=== PATIENT | female | born 1945 | race Caucasian/White ===

== ENCOUNTER → 2020-01-30 20:28 | Outpatient (ROUT) | payer OTHER, SELFPAY ==
[2020-01-30 21:04] LABS: Alanine Aminotransferase 21 IU/L (<35); Albumin 4.1 g/dL (3.5-5.0); Albumin Globulin Ratio 1.4 (1.0-2.8); Alkaline Phosphatase 86 U/L (38-126); Aspartate Aminotransferase 35 IU/L (14-36); BUN Creatinine Ratio 12.9 (6-22); Bilirubin Total 0.5 mg/dL (0.2-1.3); Blood Urea Nitrogen 9 mg/dL (7-17); Calcium 9.6 mg/dL (8.4-10.2); Carbon Dioxide 34 mmol/L (22-32); Chloride 102 mmol/L (98-107); Cholesterol 250 mg/dL (140-199); Estimated Glomerular Filt Rate > 60.0 mL/min (>60); Globulin 2.9 g/dL (1.7-4.1); Glucose 107 mg/dL (80-110); HDL Cholesterol 76 mg/dL (40-60); HEMOLYSIS 19 (0-50); LDL Cholesterol Calculated 146 mg/dL (<100); Sodium 139 mmol/L (137-145); Triglycerides 142 mg/dL (35-150)
[2020-01-30 21:07] LABS: Potassium 4.5 mmol/L (3.4-5.1)
== END ==
PROVIDERS: Visit Provider Internal Medicine
DX: I10 Essential (primary) hypertension (principal); E78.5 Hyperlipidemia, unspecified
CPT/HCPCS: 80053; 80061

== ENCOUNTER → 2020-02-22 10:14 | Outpatient (CLI) | payer OTHER, SELFPAY ==
--- NOTE | 2020-02-22 | DI.RAD.S_ITS ---
PROCEDURE: XR DEXA AXIAL SKELETON INDICATIONS: Asymptomatic menopausal state COMPARISON: None. FINDINGS: This blank DEXA report has been sent in error by the PACS system. The correct and complete report will be forthcoming in 1-2 days. Thank you for your patience and understanding. Dictated by: Mami Lockwood MD, PhD on 02/22/2020 at 12:31 Approved by: Mami Lockwood MD, PhD on 02/22/2020 at 12:31
== END ==
PROVIDERS: PCP Internal Medicine; Referring Provider Internal Medicine; Visit Provider Internal Medicine
DX: M85.851 Other specified disorders of bone density and structure, right thigh (principal); Z78.0 Asymptomatic menopausal state
CPT/HCPCS: 77080

== ENCOUNTER → 2020-05-02 08:55 | Outpatient (CLI) | payer MEDICARE, SELFPAY ==
[2020-05-02] MEDS: COVID-19 VACC #1, MRNA(MOD) 100 MCG/0.5 ML VIAL IM (09:05)
== END ==
PROVIDERS: PCP Internal Medicine; Visit Provider Internal Medicine
DX: Z23 Encounter for immunization (principal)
CPT/HCPCS: 0011A; 91301

== ENCOUNTER → 2020-05-30 09:02 | Outpatient (CLI) | payer MEDICARE, SELFPAY ==
[2020-05-30] MEDS: COVID-19 VACC #2, MRNA(MOD) 100 MCG/0.5 ML VIAL IM (09:18)
== END ==
PROVIDERS: PCP Internal Medicine; Visit Provider Internal Medicine
DX: Z23 Encounter for immunization (principal)
CPT/HCPCS: 0012A; 91301

== ENCOUNTER 2023-04-18 15:22 | Inpatient (IN) | payer OTHER, SELFPAY ==
[2023-04-18] VITALS (28 sets, daily range): BP systolic 87–158; BP diastolic 52–73; PULSE 71–90; RESP 6–40; TEMP 36.4; O2SAT 94–100; BMI 19.1
[2023-04-18 15:50] LABS: Add Manual Diff / Slide Review NO; Basophils Absolute Auto 0 /uL (0-100); Basophils Percent Auto 0.4 % (0-2); Eosinophils Absolute Auto 0 /uL (0-450); Eosinophils Percent Auto 0.1 % (2-4); Hematocrit 48.4 % (36-46); Hemoglobin 16.2 g/dL (12.0-16.0); Lymphocytes Absolute Auto 1300 /uL (1100-4500); Lymphocytes Percent Auto 17.9 % (25-40); Mean Corpuscular HGB Conc 33.5 % (30-36); Mean Corpuscular Hemoglobin 29.5 PG (26-34); Mean Corpuscular Volume 88.2 fL (80-100); Monocytes Absolute Auto 600 /uL (0-900); Monocytes Percent Auto 8.6 % (3-14); Neutrophils Absolute Auto 5300 /uL (1500-7000); Platelet Count 417 X10^3/uL (150-400); Red Blood Cell Count 5.48 X10^6/uL (4.0-5.2); White Blood Cell Count 7.3 X10^3/uL (4.5-11.0)
[2023-04-18] MEDS: ONDANSETRON 4 MG/2 ML INJ IV (15:59)
[2023-04-18] MEDS: SODIUM CHLORIDE 0.9% 1,000 ML 1000 ML IV ×2 (15:59→17:46)
[2023-04-18 16:02] LABS: Ethanol (ETOH) < 10 mg/dL
[2023-04-18 16:03] LABS: Alanine Aminotransferase 23 IU/L (<35); Albumin 4.9 g/dL (3.5-5.0); Albumin Globulin Ratio 1.4 (1.0-2.8); Alkaline Phosphatase 119 U/L (38-126); Aspartate Aminotransferase 25 IU/L (14-36); BUN Creatinine Ratio 15.9 (6-22); Bilirubin Total 0.6 mg/dL (0.2-1.3); Blood Urea Nitrogen 14 mg/dL (7-17); Calcium 10.2 mg/dL (8.4-10.2); Chloride 98 mmol/L (98-107); Estimated Glomerular Filt Rate > 60 mL/min (>60); Globulin 3.5 g/dL (1.7-4.1); Glucose 387 mg/dL (80-110); HEMOLYSIS < 15 (0-50); Lipase 128 U/L (23-300); Potassium 3.7 mmol/L (3.4-5.1); Sodium 130 mmol/L (137-145); Total Protein 8.4 g/dL (6.3-8.2)
[2023-04-18 16:14] LABS: Carbon Dioxide 9 mmol/L (22-32)
[2023-04-18 16:42] LABS: HCO3 VBG 8 mmol/L (24-28); PCO2 VBG 24.1 mmHg (45-50); PO2 VBG 30 mmHg (35-45); Total CO2 VBG 9 mmol/L (24-29); pH VBG 7.12 (7.33-7.43)
[2023-04-18 16:43] LABS: Fractionated Inspired Oxygen 21; Oxygen Saturation VBG 41 % (70-75)
[2023-04-18 16:46] LABS: Creatine Kinase 49 U/L (30-135)
[2023-04-18 16:48] LABS: Influenza A - CEPHEID Flu A NEGATIVE (NEGATIVE); Influenza B - CEPHEID Flu B NEGATIVE (NEGATIVE); Respiratory Syncytial Virus Negative (Negative)
[2023-04-18 16:48] LABS: Ketones (Beta-Hydroxybutyrate) 10.14 mmol/L (<0.27)
[2023-04-18 16:53] LABS: COVID-19 CEPHEID 4-PLEX PCR Negative (Negative)
[2023-04-18 17:00] LABS: Troponin I < 0.012 ng/mL (0.01-0.034)
--- NOTE | 2023-04-18 17:01 | ED.GENADULT ---
HPI - General Adult General Chief complaint: Weakness Stated complaint: fatigue, weakness, no appetite, no bm, vomiting,bp Time Seen by Provider: 04/18/23 15:44 Source: patient and family Mode of arrival: Ambulatory Limitations: no limitations History of Present Illness HPI narrative: Patient is a 77-year-old female. History of hypertension although she has not taking any of her medications. No history of diabetes. Does have a significant alcohol history. She states several weeks ago she just generally started to not feel very well. Has had fatigue, weakness and no appetite. She states she did vomit yesterday and today but nothing prior to that. She currently is not having any nausea. She also has not had a bowel movement in the past week. She has tried [id number] laxatives and stool softeners. She denies chest pain, shortness of breath, headache, fevers. She states that when she started to not feel very well she stopped drinking and has not had a drink in a couple weeks although she started to not feel well prior to that. She denied urinary symptoms. No skin rashes. She was able to walk from her house to the car with her family when they came to the emergency department. Related Data Allergies Allergy/AdvReac Type Severity Reaction Status Date / Time No Known Drug Allergies Allergy Verified 04/18/23 15:59 Review of Systems Review of Systems ROS Unobtainable: All systems reviewed & are unremarkable except as noted in HPI and below Patient History Medical History (Updated 04/18/23 @ 18:07 by Jordan Swanson DO) Hypertension Social History Smoking Status: Current every day smoker Smoking Status: Current every day smoker alcohol intake frequency: 3 or more drinks per day Alcohol type: wine Exam Initial Vital Signs Initial Vital Signs: Vital Signs Respiratory Rate 20 04/18/23 15:32 Oxygen Delivery Method Room Air 04/18/23 15:32 Const General: cooperative, comfortable and No ill appearing HENMT Face and sinus: normal facial exam Mouth: No moist mucous membranes (Dry mucous membranes) Resp Effort & Inspection: normal respiratory effort Auscultation: clear to auscultation bilaterally Cardio Rate: regular rate Rhythm: regular rhythm GI Inspection: normal to inspection and non-distended Palpation: soft, No firm, No guarding and No tender Auscultation: normal bowel sounds Skin General: no rashes or lesions noted Neuro General: patient alert, patient awake, patient oriented x3 and moves all extremities Cognition: normal cognition Speech: speech normal Extrem General: capillary refill normal Scores GCS Jose Raul coma scale eye opening: Spontaneous [place] coma scale verbal response: Orientated Jose Raul coma scale motor response: Obey commands [place] coma scale total score: 15 Course Orders Ordered: ED Orders 04/18/23 15:30 Ketones (Beta-Hydroxybutyrate) Stat Lactate (Lactic Acid) Stat Magnesium Stat Phosphorous Stat Troponin & CK Cardiac Panel Stat 04/18/23 15:39 Complete Blood Count AUTO DIFF Stat Comprehensive Metabolic Panel Stat Covid-19 + FLU A/B + RSV - PCR Stat ETOH [Ethanol (ETOH)] Stat Lipase Stat 04/18/23 15:44 EKG-12 Lead Stat 04/18/23 16:15 VBG [Venous Blood Gas] Stat 04/18/23 17:11 Urine Microscopic Stat Acetaminophen (Acetaminophen 325 Mg Tablet) 650 mg PO Q6H PRN PRN Reason: Fever/Mild Pain (1-3) Heparin Sodium (Porcine) (Heparin 5,000 Unit/Ml Vial) 5,000 unit SUBCUT BID TERRANCE POTASSIUM CHLORIDE IN WATER (Potassium Cl 10 Meq/100 Ml Mary) 10 meq in 100 mls @ 100 mls/hr IV Q1H TERRANCE Stop: 04/18/23 19:44 Last Admin: 04/18/23 17:52 Dose: 100 mls/hr Documented By: CANDELARIO INSULIN DRIP PREMIX (Myxredlin Drip Premix) 100 unit in 100 mls @ 7.348 mls/hr IV TITRATE TERRANCE; Protocol Last Admin: 04/18/23 17:52 Dose: 0.15 unit/kg/hr, 7.348 mls/hr Documented By: CANDELARIO Co-signed By: JO Dextrose ([id number]) 100 mls @ 1,200 mls/hr IV PRN PRN PRN Reason: Hypoglycemia Sodium Chloride (Normal Saline 0.45%) 1,000 mls @ 100 mls/hr IV CONT TERRANCE Naloxone HCl (Naloxone 0.4 Mg/Ml Vial) 0.2 mg IV Q2MIN PRN PRN Reason: Opiate Reversal Discontinued Medications Sodium Chloride (Normal Saline 0.9%) 1,000 mls @ 1,000 mls/hr IV BOLUS ONE Stop: 04/18/23 16:45 Last Infusion: 04/18/23 17:20 Dose: Infused Documented By: Admin: 04/18/23 15:59 Dose: 1,000 mls/hr Documented By: CANDELARIO Sodium Chloride (Normal Saline 0.9%) 1,000 mls @ 1,000 mls/hr IV BOLUS ONE Stop: 04/18/23 18:01 Last Admin: 04/18/23 17:46 Dose: 1,000 mls/hr Documented By: CANDELARIO Ondansetron HCl (Ondansetron 4 Mg/2 Ml Inj) 4 mg IV NOW ONE Stop: 04/18/23 15:47 Last Admin: 04/18/23 15:59 Dose: 4 mg Documented By: CANDELARIO Vital Signs Vital signs: Vital Signs - 8 hr 04/18/23 15:32 04/18/23 15:34 04/18/23 15:34 Temperature Pulse Rate 86 Respiratory Rate 20 24 Blood Pressure 155/73 H Pulse Oximetry 94 Oxygen Delivery Method Room Air 04/18/23 15:36 04/18/23 15:39 04/18/23 15:39 Temperature 97.6 F Pulse Rate 87 83 Respiratory Rate 16 17 Blood Pressure 155/73 H 135/63 Pulse Oximetry 94 Oxygen Delivery Method Room Air 04/18/23 15:45 04/18/23 15:45 04/18/23 16:00 Temperature Pulse Rate 81 80 Respiratory Rate 17 21 Blood Pressure 137/62 Pulse Oximetry 99 100 Oxygen Delivery Method Room Air 04/18/23 16:00 04/18/23 16:15 04/18/23 16:15 Temperature Pulse Rate 79 Respiratory Rate 20 Blood Pressure 146/69 H 140/63 Pulse Oximetry 99 Oxygen Delivery Method 04/18/23 16:30 04/18/23 16:30 Temperature Pulse Rate 80 Respiratory Rate 24 Blood Pressure 147/70 H Pulse Oximetry 99 Oxygen Delivery Method Room Air Medical Decision Making Lab Data Lab results reviewed: Yes I reviewed the patient's lab results. 04/18/23 15:39 04/18/23 15:39 Labs: Lab Results 04/18/23 04/18/23 04/18/23 Range/Units 15:30 15:39 16:15 WBC 7.3 (4.5-11.0) X10^3/uL RBC 5.48 H (4.0-5.2) X10^6/uL Hgb 16.2 H (12.0-16.0) g/dL Hct 48.4 H (36-46) % MCV 88.2 (80-100) fL MCH 29.5 (26-34) PG MCHC 33.5 (30-36) % RDW 14.0 (11.6-14.8) % Plt Count 417 H (150-400) X10^3/uL Neut % (Auto) 73.0 (50-75) % Lymph % (Auto) 17.9 L (25-40) % [place] % (Auto) 8.6 (3-14) % Eos % (Auto) 0.1 L (2-4) % Baso % (Auto) 0.4 (0-2) % Neut # (Auto) 5300 (8056-9256) /uL Lymph # (Auto) 1300 (7685-3954) /uL [place] # (Auto) 600 (0-900) /uL Eos # (Auto) 0 (0-450) /uL Baso # (Auto) 0 (0-100) /uL VBG pH 7.12 L* (7.33-7.43) VBG pCO2 24.1 L (45-50) mmHg VBG pO2 30 L (35-45) mmHg VBG HCO3 8 L (24-28) mmol/L VBG Total CO2 9 L (24-29) mmol/L VBG O2 Saturation 41 L (70-75) % VBG Base Excess -21.0 L (0-4) mmol/L FiO2 21 Sodium 130 L (137-145) mmol/L Potassium 3.7 (3.4-5.1) mmol/L Chloride 98 (98-107) mmol/L Carbon Dioxide 9 L* (22-32) mmol/L BUN 14 (7-17) mg/dL Creatinine 0.88 (0.52-1.04) mg/dL Estimated GFR > 60 (>60) mL/min BUN/Creatinine Ratio 15.9 (6-22) Glucose 387 H (80-110) mg/dL Lactate 2.0 (0.7-2.1) mmol/L Calcium 10.2 (8.4-10.2) mg/dL Phosphorus 4.0 (2.8-4.1) mg/dL Magnesium 2.0 (1.6-2.3) mg/dL Total Bilirubin 0.6 (0.2-1.3) mg/dL AST 25 (14-36) IU/L ALT 23 (<35) IU/L Alkaline Phosphatase 119 (38-126) U/L Total Creatine Kinase 49 (30-135) U/L Troponin I < 0.012 (0.01-0.034) ng/mL Total Protein 8.4 H (6.3-8.2) g/dL Albumin 4.9 (3.5-5.0) g/dL Globulin 3.5 (1.7-4.1) g/dL Albumin/Globulin Ratio 1.4 (1.0-2.8) Lipase 128 (23-300) U/L Urine RBC (0-5/HPF) Urine WBC (0-5/HPF) Ur Squamous Epith Cells (0-5/HPF) Ur Renal Epithelial Cell (0-1/HPF) Urine Bacteria (None) Hyaline Casts (None) Ur Culture Indicated? Ethyl Alcohol < 10 ( - 10) mg/dL Ketones 10.14 H (<0.27) mmol/L SARS-CoV-2 (PCR) Negative (Negative) Influenza A (RT-PCR) Flu a negative (NEGATIVE) Influenza B (RT-PCR) Flu b negative (NEGATIVE) RSV (PCR) Negative (Negative) 04/18/23 Range/Units 17:11 WBC (4.5-11.0) X10^3/uL RBC (4.0-5.2) X10^6/uL Hgb (12.0-16.0) g/dL Hct (36-46) % MCV (80-100) fL MCH (26-34) PG MCHC (30-36) % RDW (11.6-14.8) % Plt Count (150-400) X10^3/uL Neut % (Auto) (50-75) % Lymph % (Auto) (25-40) % [place] % (Auto) (3-14) % Eos % (Auto) (2-4) % Baso % (Auto) (0-2) % Neut # (Auto) (4333-7400) /uL Lymph # (Auto) (6461-1694) /uL [place] # (Auto) (0-900) /uL Eos # (Auto) (0-450) /uL Baso # (Auto) (0-100) /uL VBG pH (7.33-7.43) VBG pCO2 (45-50) mmHg VBG pO2 (35-45) mmHg VBG HCO3 (24-28) mmol/L VBG Total CO2 (24-29) mmol/L VBG O2 Saturation (70-75) % VBG Base Excess (0-4) mmol/L FiO2 Sodium (137-145) mmol/L Potassium (3.4-5.1) mmol/L Chloride (98-107) mmol/L Carbon Dioxide (22-32) mmol/L BUN (7-17) mg/dL Creatinine (0.52-1.04) mg/dL Estimated GFR (>60) mL/min BUN/Creatinine Ratio (6-22) Glucose (80-110) mg/dL Lactate (0.7-2.1) mmol/L Calcium (8.4-10.2) mg/dL Phosphorus (2.8-4.1) mg/dL Magnesium (1.6-2.3) mg/dL Total Bilirubin (0.2-1.3) mg/dL AST (14-36) IU/L ALT (<35) IU/L Alkaline Phosphatase (38-126) U/L Total Creatine Kinase (30-135) U/L Troponin I (0.01-0.034) ng/mL Total Protein (6.3-8.2) g/dL Albumin (3.5-5.0) g/dL Globulin (1.7-4.1) g/dL Albumin/Globulin Ratio (1.0-2.8) Lipase (23-300) U/L Urine RBC 0-1/hpf (0-5/HPF) Urine WBC 1-5/hpf (0-5/HPF) Ur Squamous Epith Cells 1-5 /hpf (0-5/HPF) Ur Renal Epithelial Cell 0-1/hpf (0-1/HPF) Urine Bacteria None seen (None) Hyaline Casts 5-10/lpf (None) Ur Culture Indicated? Cult not indicated Ethyl Alcohol ( - 10) mg/dL Ketones (<0.27) mmol/L SARS-CoV-2 (PCR) (Negative) Influenza A (RT-PCR) (NEGATIVE) Influenza B (RT-PCR) (NEGATIVE) RSV (PCR) (Negative) Urine Dip Bedside Urine Glucose 1000 mg/dl Bedside Urine Bilirubin - Negative Bedside Urine Ketone +++ 80 Urine Specific [place] 1.030 Bedside Urine Occult Blood + Bedside Urine pH 5.5 Bedside Urine Protein + 30 Bedside Urine Urobilinogen - Negative Bedside Urine Nitrite - Negative Point of care testing: Urine Dip Bedside Urine Glucose 1000 mg/dl Bedside Urine Bilirubin - Negative Bedside Urine Ketone +++ 80 Urine Specific [place] 1.030 Bedside Urine Occult Blood + Bedside Urine pH 5.5 Bedside Urine Protein + 30 Bedside Urine Urobilinogen - Negative Bedside Urine Nitrite - Negative ECG Data Attestation: I personally reviewed and interpreted this ECG as follows: Interpretation: Sinus rhythm Ventricular rate is 74 Left axis deviation LVH Normal QRS MDM Narrative Medical decision making narrative: Patient has very vague symptoms to include fatigue and weakness that have been going on for a couple weeks. She has not had a bowel movement in the past week. Her abdomen is soft. Nondistended. Good bowel sounds. She is afebrile. No leukocytosis. No specific source of infection. Low suspicion for pneumonia. No skin changes. No urinary symptoms. She has no chest pain. Troponin is negative. Has a nonischemic EKG. She has never been diagnosed with diabetes. Her glucose is elevated. She has an anion gap of 23. Is acidotic with a VBG pH of 7.1. She was clinically dehydrated. Has very dry mouth and tongue. She has not currently nauseous. Patient does meet criteria for DKA. Was given fluids. Potassium is 3.7. Anticipate drop of potassium with starting of insulin so will give potassium with fluids. Patient does require admission to the hospital. Discussed the case with Dr. Bishop hospitalist on-call who will admit. Discussed the need for admission with the patient and family. They expressed understanding and agreement as well. Discharge Plan Departure Patient Disposition: Admitted As Inpatient Clinical Impression: DKA (diabetic ketoacidosis), Dehydration Admit Date/Time: 04/18/23 17:47 Admit Provider: Baudilio Bishop
[2023-04-18 17:45] LABS: Bacteria Urine None Seen; RBC Urine 0-1/HPF (0-5/HPF); Squamous Epithelial Cell Urine 1-5 /HPF (0-5/HPF); WBC Urine 1-5/HPF (0-5/HPF)
[2023-04-18 17:47] LABS: Culture Indicated Urine Cult Not Indicated; Hyaline Casts Urine 5-10/LPF; Renal Epithelial Cells Urine 0-1/HPF (0-1/HPF)
[2023-04-18] MEDS: POTASSIUM CHLORIDE IN WATER 10 MEQ/100 ML PIGGYBACK 100 MEQ IV ×3 (17:52→23:02)
[2023-04-18] MEDS: INSULIN DRIP PREMIX 100 UNIT/100 ML PLAST..BAG 7.348 UNIT IV (17:52)
--- NOTE | 2023-04-18 17:59 | P.HP_ITS ---
History of Present Illness History of Present Illness Date Patient Seen: 04/18/23 Time Patient Seen: 17:59 Date of Onset of Symptoms: 04/13/23 Chief complaint: fatigue, weakness, no appetite, no bm, vomiting,bp Narrative: The patient is a 77-year-old female with a history of hypertension who stopped taking blood pressure medication some time ago as well as a history of chronic alcohol abuse and tobacco use. She has been progressively ill for 3-4 weeks with progressive weakness and anorexia. She stopped all alcohol ingestion about 2 weeks ago except for a half of a beer several days ago. She stopped smoking about 2 weeks ago because of the way she was feeling. Because of progressive weakness she presented to the ED with her family today. Her daughter is a hospice nurse and her son-in-law is a EMT. He did note fruity breath. In the emergency department she was found to have hyperglycemia and a pH of 7.1 with positive ketones. She was clinically very dehydrated. She also had evidence of hemoconcentration with a hemoglobin of 16.2 and hematocrit of 48.4. She was tachypneic and response to her acidosis in her lactic acid was negative. She denies chest pain and had a normal EKG she denies abdominal pain but has been vomiting for 2 days. She has no known history of pancreatitis. She has been constipated and had very concentrated urine. She denies any infectious symptoms other than a mild cough. No fevers or chills. No hematuria or dysuria. [facility] Medical History Hypertension Social History Smoking Status: Current every day smoker Comment: She lives alone in [place]. She does smoke and uses alcohol as outlined in the narrative above. She is full resuscitation, confirmed at time of admission. Meds Home Medications and Allergies Allergies Allergy/AdvReac Type Severity Reaction Status Date / Time No Known Drug Allergies Allergy Verified 04/18/23 15:59 Review of Systems Review of Systems Narrative: All else reviewed and otherwise noncontributory other than as noted in the history and physical. Exam Vital Signs (past 8 hours): - 04/18/23 15:32 04/18/23 15:34 04/18/23 15:34 Temperature Pulse Rate 86 Respiratory Rate 20 24 Blood Pressure 155/73 H Pulse Oximetry 94 Oxygen Delivery Method Room Air 04/18/23 15:36 04/18/23 15:39 04/18/23 15:39 Temperature 97.6 F Pulse Rate 87 83 Respiratory Rate 16 17 Blood Pressure 155/73 H 135/63 Pulse Oximetry 94 Oxygen Delivery Method Room Air 04/18/23 15:45 04/18/23 15:45 04/18/23 16:00 Temperature Pulse Rate 81 80 Respiratory Rate 17 21 Blood Pressure 137/62 Pulse Oximetry 99 100 Oxygen Delivery Method Room Air 04/18/23 16:00 04/18/23 16:15 04/18/23 16:15 Temperature Pulse Rate 79 Respiratory Rate 20 Blood Pressure 146/69 H 140/63 Pulse Oximetry 99 Oxygen Delivery Method 04/18/23 16:30 04/18/23 16:30 Temperature Pulse Rate 80 Respiratory Rate 24 Blood Pressure 147/70 H Pulse Oximetry 99 Oxygen Delivery Method Room Air Oxygen Delivery Method Room Air Narrative Exam Narrative: She appears somewhat lethargic but no acute distress. She has fluent speech. She is alert and oriented. She appears underweight. Normocephalic skull. EOMI. Anicteric sclerae, symmetric pupils. Oropharynx with dry mucosa. No facial droop. Neck supple, midline trachea. Lungs are clear, normal rate and effort. Heart is regular, no murmur. Abdomen is soft, non-tender. No masses are palpated. Extremities are free of edema, good pedal pulses. Skin is free of rash or lesions. Joints are not deformed. She can move arms and legs symmetrically has no facial droop normal speech. Objective ECG Impression: NSR, no acute changes. Labs 04/18/23 15:39 04/18/23 15:39 Labs: Laboratory Results - last 24 hr 04/18/23 04/18/23 04/18/23 15:30 15:39 16:15 WBC 7.3 RBC 5.48 H Hgb 16.2 H Hct 48.4 H MCV 88.2 MCH 29.5 MCHC 33.5 RDW 14.0 Plt Count 417 H Neut % (Auto) 73.0 Lymph % (Auto) 17.9 L [place] % (Auto) 8.6 Eos % (Auto) 0.1 L Baso % (Auto) 0.4 Neut # (Auto) 5300 Lymph # (Auto) 1300 [place] # (Auto) 600 Eos # (Auto) 0 Baso # (Auto) 0 VBG pH 7.12 L* VBG pCO2 24.1 L VBG pO2 30 L VBG HCO3 8 L VBG Total CO2 9 L VBG O2 Saturation 41 L VBG Base Excess -21.0 L FiO2 21 Sodium 130 L Potassium 3.7 Chloride 98 Carbon Dioxide 9 L* BUN 14 Creatinine 0.88 Estimated GFR > 60 BUN/Creatinine Ratio 15.9 Glucose 387 H Lactate 2.0 Calcium 10.2 Phosphorus 4.0 Magnesium 2.0 Total Bilirubin 0.6 AST 25 ALT 23 Alkaline Phosphatase 119 Total Creatine Kinase 49 Troponin I < 0.012 Total Protein 8.4 H Albumin 4.9 Globulin 3.5 Albumin/Globulin Ratio 1.4 Lipase 128 Urine RBC Urine WBC Ur Squamous Epith Cells Ur Renal Epithelial Cell Urine Bacteria Hyaline Casts Ur Culture Indicated? Ethyl Alcohol < 10 Ketones 10.14 H SARS-CoV-2 (PCR) Negative Influenza A (RT-PCR) Flu a negative Influenza B (RT-PCR) Flu b negative RSV (PCR) Negative 04/18/23 17:11 WBC RBC Hgb Hct MCV MCH MCHC RDW Plt Count Neut % (Auto) Lymph % (Auto) [place] % (Auto) Eos % (Auto) Baso % (Auto) Neut # (Auto) Lymph # (Auto) [place] # (Auto) Eos # (Auto) Baso # (Auto) VBG pH VBG pCO2 VBG pO2 VBG HCO3 VBG Total CO2 VBG O2 Saturation VBG Base Excess FiO2 Sodium Potassium Chloride Carbon Dioxide BUN Creatinine Estimated GFR BUN/Creatinine Ratio Glucose Lactate Calcium Phosphorus Magnesium Total Bilirubin AST ALT Alkaline Phosphatase Total Creatine Kinase Troponin I Total Protein Albumin Globulin Albumin/Globulin Ratio Lipase Urine RBC 0-1/hpf Urine WBC 1-5/hpf Ur Squamous Epith Cells 1-5 /hpf Ur Renal Epithelial Cell 0-1/hpf Urine Bacteria None seen Hyaline Casts 5-10/lpf Ur Culture Indicated? Cult not indicated Ethyl Alcohol Ketones SARS-CoV-2 (PCR) Influenza A (RT-PCR) Influenza B (RT-PCR) RSV (PCR) Assessment & Plan Assessment & Plan narrative: 1. New onset DKA, presumably type 2. Present on admission and active. 2. Severe metabolic acidosis secondary to DKA, present on admission and active. 3. Severe volume depletion, present on admission and active. 4. Alcohol abuse with no ingestion of significance over the last 2 weeks, present on admission and not active. 5. Tobacco dependence, present on admission and active. Plan: -we will treat her with IV fluids and an insulin drip with the DKA protocol. The patient will also have potassium replaced as necessary and be monitored with Q 4 hour BMP. -she will be given IV fluids initially D5 1/2 NS per protocol. She was given normal saline x2 L in the emergency department. -we will monitor her until her gap closes and then anticipate transition to a simple subcutaneous insulin regimen including long and short-acting insulin. -her daughter is a hospice nurse and has some concerns about her pancreas. We will order a CT of the abdomen and pelvis to evaluate her for chronic pancreatitis tomorrow after she is fully fluid resuscitated. She is full resuscitation, confirmed today. Her daughter is her durable power of smoking pipe mounter and healthcare proxy. Her daughters also director hospice operations. The patient is critically ill with DKA and severe metabolic acidosis. Approximately 45 minutes of critical care time was spent with the patient and coordinating her care. Time Spent With Patient Time with patient: 30 to 49 minutes with 50% spent counseling/coordinating care Quality MIPS - Admit I confirm the patient?s Advance Care Plan is present, Code status is documented, Surrogate decision maker is in patient?s record [If Yes, STOP here]: Yes
[2023-04-18 18:26] LABS: BUN Creatinine Ratio 20.3 (6-22); Blood Urea Nitrogen 13 mg/dL (7-17); Calcium 8.4 mg/dL (8.4-10.2); Chloride 105 mmol/L (98-107); Estimated Glomerular Filt Rate > 60 mL/min (>60); Glucose 310 mg/dL (80-110); HEMOLYSIS 16 (0-50); Potassium 4.3 mmol/L (3.4-5.1); Sodium 132 mmol/L (137-145)
[2023-04-18 18:29] LABS: Carbon Dioxide 6 mmol/L (22-32)
[2023-04-18 19:00] LABS: Hemoglobin A1C% w Est Avg Glu 10.8 % (4.0-6.0)
[2023-04-18] MEDS: DEXTROSE 5%-0.45% NS 1,000 ML 73.5 ML IV (19:02)
[2023-04-18] MEDS: INSULIN DRIP PREMIX 100 UNIT/100 ML PLAST..BAG IV (19:03)
[2023-04-18] MEDS: SODIUM CHLORIDE 0.45% 1,000 ML 100 ML IV (20:20)
--- NOTE | 2023-04-18 20:22 | P.TELICUCN_ITS ---
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 obtained for tele-kitchen chef care: Yes Patient Location: ICU Provider location (State): Other participants/roles: RN Narrative: 77-year-old female with a history of hypertension, chronic alcohol abuse and tobacco use, stopped alcohol use couple of weeks ago, admitted for progressive weakness and anorexia, found to be in DKA Assessment: DKA HTN Chronic alcohol abuse Tobacco use Plan: IV insulin and fluid per DKA protocol Labs and electroytes replacement per DKA protcol F/U pending CT abd & pelvis SC heparin for DVT ppx Discussed plan with ICU staff CCT 30 min [facility] Medical History Hypertension Social History household members: none Smoking Status: Former smoker alcohol intake: former Current Medications Current Medications Medications: Home Medications multivitamin 1 tab PO DAILY 04/18/23 [History Confirmed 04/18/23] Visit Medications (administered) Generic Name Dose Route Start Last Admin Trade Name Freq PRN Reason Stop Dose Admin INSULIN DRIP PREMIX 100 unit in 100 mls @ 7.348 mls/hr 04/18/23 17:45 04/18/23 19:03 Myxredlin Drip Premix IV 0.1 unit/kg/hr TITRATE TERRANCE 4.9 mls/hr Administration Protocol 0.15 UNIT/KG/HR Sodium Chloride 1,000 mls @ 100 mls/hr 04/18/23 18:00 04/18/23 20:20 Normal Saline 0.45% IV 100 mls/hr CONT TERRANCE Administration Dextrose/Sodium Chloride 1,000 mls @ 73.5 mls/hr 04/18/23 19:01 04/18/23 19:02 Dextrose 5%-0.45% Ns IV 04/19/23 08:37 73.5 mls/hr NOW ONE Administration Exam Vital Signs (past 8 hours): - 04/18/23 15:32 04/18/23 15:34 04/18/23 15:34 Temperature Pulse Rate 86 Respiratory Rate 20 24 Blood Pressure 155/73 H Pulse Oximetry 94 Oxygen Delivery Method Room Air 04/18/23 15:36 04/18/23 15:39 04/18/23 15:39 Temperature 97.6 F Pulse Rate 87 83 Respiratory Rate 16 17 Blood Pressure 155/73 H 135/63 Pulse Oximetry 94 Oxygen Delivery Method Room Air 04/18/23 15:45 04/18/23 15:45 04/18/23 16:00 Temperature Pulse Rate 81 80 Respiratory Rate 17 21 Blood Pressure 137/62 Pulse Oximetry 99 100 Oxygen Delivery Method Room Air 04/18/23 16:00 04/18/23 16:15 04/18/23 16:15 Temperature Pulse Rate 79 Respiratory Rate 20 Blood Pressure 146/69 H 140/63 Pulse Oximetry 99 Oxygen Delivery Method 04/18/23 16:30 04/18/23 16:30 04/18/23 16:45 Temperature Pulse Rate 80 80 Respiratory Rate 24 20 Blood Pressure 147/70 H Pulse Oximetry 99 100 Oxygen Delivery Method Room Air 04/18/23 16:45 04/18/23 17:00 04/18/23 17:00 Temperature Pulse Rate 80 Respiratory Rate 20 Blood Pressure 130/59 L 127/70 Pulse Oximetry 99 Oxygen Delivery Method 04/18/23 17:15 04/18/23 17:15 04/18/23 17:30 Temperature Pulse Rate 84 81 Respiratory Rate 6 L 19 Blood Pressure 127/69 Pulse Oximetry 99 100 Oxygen Delivery Method 04/18/23 17:30 04/18/23 17:45 04/18/23 17:45 Temperature Pulse Rate 79 Respiratory Rate 40 H Blood Pressure 139/63 140/71 Pulse Oximetry 100 Oxygen Delivery Method 04/18/23 18:00 04/18/23 18:01 04/18/23 18:01 Temperature Pulse Rate 81 81 Respiratory Rate 26 H 28 H Blood Pressure 147/64 H Pulse Oximetry 100 99 Oxygen Delivery Method 04/18/23 18:15 04/18/23 18:15 04/18/23 20:13 Temperature Pulse Rate 81 Respiratory Rate 26 H Blood Pressure 136/68 158/67 H Pulse Oximetry 100 Oxygen Delivery Method Room Air Oxygen Delivery Method Room Air Objective Labs 04/18/23 15:39 04/18/23 18:10 Labs: Laboratory Results - last 24 hr 04/18/23 04/18/23 04/18/23 15:30 15:39 16:15 WBC 7.3 RBC 5.48 H Hgb 16.2 H Hct 48.4 H MCV 88.2 MCH 29.5 MCHC 33.5 RDW 14.0 Plt Count 417 H Neut % (Auto) 73.0 Lymph % (Auto) 17.9 L [place] % (Auto) 8.6 Eos % (Auto) 0.1 L Baso % (Auto) 0.4 Neut # (Auto) 5300 Lymph # (Auto) 1300 [place] # (Auto) 600 Eos # (Auto) 0 Baso # (Auto) 0 VBG pH 7.12 L* VBG pCO2 24.1 L VBG pO2 30 L VBG HCO3 8 L VBG Total CO2 9 L VBG O2 Saturation 41 L VBG Base Excess -21.0 L FiO2 21 Sodium 130 L Potassium 3.7 Chloride 98 Carbon Dioxide 9 L* BUN 14 Creatinine 0.88 Estimated GFR > 60 BUN/Creatinine Ratio 15.9 Glucose 387 H Hemoglobin A1c 10.8 H Lactate 2.0 Calcium 10.2 Phosphorus 4.0 Magnesium 2.0 Total Bilirubin 0.6 AST 25 ALT 23 Alkaline Phosphatase 119 Total Creatine Kinase 49 Troponin I < 0.012 Total Protein 8.4 H Albumin 4.9 Globulin 3.5 Albumin/Globulin Ratio 1.4 Lipase 128 Urine RBC Urine WBC Ur Squamous Epith Cells Ur Renal Epithelial Cell Urine Bacteria Hyaline Casts Ur Culture Indicated? Ethyl Alcohol < 10 Ketones 10.14 H SARS-CoV-2 (PCR) Negative Influenza A (RT-PCR) Flu a negative Influenza B (RT-PCR) Flu b negative RSV (PCR) Negative 04/18/23 04/18/23 17:11 18:10 WBC RBC Hgb Hct MCV MCH MCHC RDW Plt Count Neut % (Auto) Lymph % (Auto) [place] % (Auto) Eos % (Auto) Baso % (Auto) Neut # (Auto) Lymph # (Auto) [place] # (Auto) Eos # (Auto) Baso # (Auto) VBG pH VBG pCO2 VBG pO2 VBG HCO3 VBG Total CO2 VBG O2 Saturation VBG Base Excess FiO2 Sodium 132 L Potassium 4.3 Chloride 105 Carbon Dioxide 6 L* BUN 13 Creatinine 0.64 Estimated GFR > 60 BUN/Creatinine Ratio 20.3 Glucose 310 H Hemoglobin A1c Lactate Calcium 8.4 Phosphorus Magnesium Total Bilirubin AST ALT Alkaline Phosphatase Total Creatine Kinase Troponin I Total Protein Albumin Globulin Albumin/Globulin Ratio Lipase Urine RBC 0-1/hpf Urine WBC 1-5/hpf Ur Squamous Epith Cells 1-5 /hpf Ur Renal Epithelial Cell 0-1/hpf Urine Bacteria None seen Hyaline Casts 5-10/lpf Ur Culture Indicated? Cult not indicated Ethyl Alcohol Ketones SARS-CoV-2 (PCR) Influenza A (RT-PCR) Influenza B (RT-PCR) RSV (PCR)
[2023-04-18] MEDS: HEPARIN 5,000 UNIT/ML VIAL 5000 UNIT SUBCUT (20:43)
[2023-04-18 21:13] LABS: MRSA (Nasal) PCR Not Detected (Not Detect)
[2023-04-18 22:26] LABS: BUN Creatinine Ratio 23.5 (6-22); Blood Urea Nitrogen 12 mg/dL (7-17); Calcium 8.9 mg/dL (8.4-10.2); Carbon Dioxide 13 mmol/L (22-32); Chloride 111 mmol/L (98-107); Estimated Glomerular Filt Rate > 60 mL/min (>60); Glucose 177 mg/dL (80-110); HEMOLYSIS 19 (0-50); Potassium 3.1 mmol/L (3.4-5.1); Sodium 131 mmol/L (137-145)
[2023-04-19] VITALS (50 sets, daily range): BP systolic 89–129; BP diastolic 6–76; PULSE 65–81; RESP 9–27; TEMP 35.9–36.9; O2SAT 94–100
[2023-04-19] MEDS: POTASSIUM CHLORIDE IN WATER 10 MEQ/100 ML PIGGYBACK 100 MEQ IV ×9 (00:01→09:11)
--- NOTE | 2023-04-19 00:24 | PM.EICU.INT ---
Teleintensivist Intervention Date/Time Was camera activated?: No Issue(s) Addressed Issue(s): Abnormal labs and Glycemia Other:: patient remains in acidosis continue DKA protocol would switch to long acting once acidosis resolves, will check am labs Intervention(s) Plan discussed with: Nurse
[2023-04-19 00:31] LABS: PCO2 VBG 28.5 mmHg (45-50); pH VBG 7.24 (7.33-7.43)
[2023-04-19 00:32] LABS: Fractionated Inspired Oxygen 21; HCO3 VBG 12 mmol/L (24-28); Oxygen Saturation VBG 94 % (70-75); PO2 VBG 81 mmHg (35-45); Total CO2 VBG 13 mmol/L (24-29)
[2023-04-19] MEDS: DEXTROSE 10 % IN WATER 1,000 ML 49 ML IV (01:10)
[2023-04-19 03:03] LABS: Blood Urea Nitrogen 12 mg/dL (7-17); Carbon Dioxide 15 mmol/L (22-32); Chloride 109 mmol/L (98-107); Estimated Glomerular Filt Rate > 60 mL/min (>60); Glucose 149 mg/dL (80-110); HEMOLYSIS < 15 (0-50); Potassium 3.9 mmol/L (3.4-5.1); Sodium 128 mmol/L (137-145)
[2023-04-19] MEDS: SODIUM CHLORIDE 0.9% 1,000 ML 100 ML IV (03:42)
[2023-04-19 06:18] LABS: BUN Creatinine Ratio 21.6 (6-22); Blood Urea Nitrogen 11 mg/dL (7-17); Carbon Dioxide 16 mmol/L (22-32); Chloride 108 mmol/L (98-107); Estimated Glomerular Filt Rate > 60 mL/min (>60); Glucose 148 mg/dL (80-110); HEMOLYSIS < 15 (0-50); Potassium 4.2 mmol/L (3.4-5.1); Sodium 126 mmol/L (137-145)
[2023-04-19] MEDS: HEPARIN 5,000 UNIT/ML VIAL 5000 UNIT SUBCUT ×2 (08:28→20:23)
[2023-04-19] MEDS: INSULIN LISPRO 100 UNIT/ML 3ML VIAL SUBCUT ×4 (08:28→20:23)
--- NOTE | 2023-04-19 09:35 | P.TELICUPN_ITS ---
Subjective Subjective IF CAMERA ACTIVATED, patient seen via real-time interactive audiovisual communication: Camera activated Consent obtained for tele-spooler operator care: Yes Patient Location: ICU Provider location (State): Other participants/roles: RN Interval history: 77-year-old female with a history of hypertension, chronic alcohol abuse and tobacco use, stopped alcohol use couple of weeks ago, admitted for progressive weakness and anorexia, found to be in DKA Overnight/ this am: Feel better this morning, denies any complain, full liquid initiated / tolerated. 1.5 hrs ago BMP noted to have resolved AG with sodium of 126, pt was on NS and D10 drips with insulin drip, oredred to DC all drips and start moderate scale ISS , last BS 140, pending BMP in 30 min Assessment: Acute hyponatremia DKA HTN Chronic alcohol abuse Tobacco use Plan: Pending BMP, pseudo hyponatremia initatially but continued despite improvement of glucose level, BMP pending after stopping fluids Continue ISS for now , will decide for long acting insulin initiation as pt was on D10 with insulin F/U pending CT abd & pelvis SC heparin for DVT ppx Discussed plan with ICU staff CCT 30 min Current Medications Current Medications Medications: Home Medications multivitamin 1 tab PO DAILY 04/18/23 [History Confirmed 04/18/23] Visit Medications (administered) Generic Name Dose Route Start Last Admin Trade Name Freq PRN Reason Stop Dose Admin Heparin Sodium (Porcine) 5,000 unit 04/18/23 21:00 04/19/23 08:28 Heparin 5,000 Unit/Ml Vial SUBCUT 5,000 unit BID TERRANCE Administration Sodium Chloride 1,000 mls @ 100 mls/hr 04/18/23 18:00 04/19/23 03:49 Normal Saline 0.45% IV 0 mls/hr CONT TERRANCE Infusion Insulin Human Lispro 0 unit 04/19/23 08:00 04/19/23 08:28 Insulin Lispro 100 Unit/Ml 3ml Vial SUBCUT 1 unit ACHS TERRANCE Administration Protocol Objective Labs 04/18/23 15:39 04/19/23 06:02 Labs: Laboratory Results - last 24 hr 04/18/23 04/18/23 04/18/23 15:30 15:39 16:15 WBC 7.3 RBC 5.48 H Hgb 16.2 H Hct 48.4 H MCV 88.2 MCH 29.5 MCHC 33.5 RDW 14.0 Plt Count 417 H Neut % (Auto) 73.0 Lymph % (Auto) 17.9 L [place] % (Auto) 8.6 Eos % (Auto) 0.1 L Baso % (Auto) 0.4 Neut # (Auto) 5300 Lymph # (Auto) 1300 [place] # (Auto) 600 Eos # (Auto) 0 Baso # (Auto) 0 VBG pH 7.12 L* VBG pCO2 24.1 L VBG pO2 30 L VBG HCO3 8 L VBG Total CO2 9 L VBG O2 Saturation 41 L VBG Base Excess -21.0 L FiO2 21 Sodium 130 L Potassium 3.7 Chloride 98 Carbon Dioxide 9 L* BUN 14 Creatinine 0.88 Estimated GFR > 60 BUN/Creatinine Ratio 15.9 Glucose 387 H Hemoglobin A1c 10.8 H Lactate 2.0 Calcium 10.2 Phosphorus 4.0 Magnesium 2.0 Total Bilirubin 0.6 AST 25 ALT 23 Alkaline Phosphatase 119 Total Creatine Kinase 49 Troponin I < 0.012 Total Protein 8.4 H Albumin 4.9 Globulin 3.5 Albumin/Globulin Ratio 1.4 Lipase 128 Urine RBC Urine WBC Ur Squamous Epith Cells Ur Renal Epithelial Cell Urine Bacteria Hyaline Casts Ur Culture Indicated? Nasal Screen MRSA (PCR) Ethyl Alcohol < 10 Ketones 10.14 H SARS-CoV-2 (PCR) Negative Influenza A (RT-PCR) Flu a negative Influenza B (RT-PCR) Flu b negative RSV (PCR) Negative 04/18/23 04/18/23 04/18/23 17:11 18:10 18:52 WBC RBC Hgb Hct MCV MCH MCHC RDW Plt Count Neut % (Auto) Lymph % (Auto) [place] % (Auto) Eos % (Auto) Baso % (Auto) Neut # (Auto) Lymph # (Auto) [place] # (Auto) Eos # (Auto) Baso # (Auto) VBG pH VBG pCO2 VBG pO2 VBG HCO3 VBG Total CO2 VBG O2 Saturation VBG Base Excess FiO2 Sodium 132 L Potassium 4.3 Chloride 105 Carbon Dioxide 6 L* BUN 13 Creatinine 0.64 Estimated GFR > 60 BUN/Creatinine Ratio 20.3 Glucose 310 H Hemoglobin A1c Lactate Calcium 8.4 Phosphorus Magnesium Total Bilirubin AST ALT Alkaline Phosphatase Total Creatine Kinase Troponin I Total Protein Albumin Globulin Albumin/Globulin Ratio Lipase Urine RBC 0-1/hpf Urine WBC 1-5/hpf Ur Squamous Epith Cells 1-5 /hpf Ur Renal Epithelial Cell 0-1/hpf Urine Bacteria None seen Hyaline Casts 5-10/lpf Ur Culture Indicated? Cult not indicated Nasal Screen MRSA (PCR) Not detected Ethyl Alcohol Ketones SARS-CoV-2 (PCR) Influenza A (RT-PCR) Influenza B (RT-PCR) RSV (PCR) 04/18/23 04/18/23 04/19/23 22:07 23:16 02:24 WBC RBC Hgb Hct MCV MCH MCHC RDW Plt Count Neut % (Auto) Lymph % (Auto) [place] % (Auto) Eos % (Auto) Baso % (Auto) Neut # (Auto) Lymph # (Auto) [place] # (Auto) Eos # (Auto) Baso # (Auto) VBG pH 7.24 L VBG pCO2 28.5 L VBG pO2 81 H VBG HCO3 12 L VBG Total CO2 13 L VBG O2 Saturation 94 H VBG Base Excess -15.0 L FiO2 21 Sodium 131 L 128 L Potassium 3.1 L D 3.9 Chloride 111 H 109 H Carbon Dioxide 13 L 15 L BUN 12 12 Creatinine 0.51 L 0.50 L Estimated GFR > 60 > 60 BUN/Creatinine Ratio 23.5 H 24.0 H Glucose 177 H D 149 H Hemoglobin A1c Lactate Calcium 8.9 9.0 Phosphorus Magnesium Total Bilirubin AST ALT Alkaline Phosphatase Total Creatine Kinase Troponin I Total Protein Albumin Globulin Albumin/Globulin Ratio Lipase Urine RBC Urine WBC Ur Squamous Epith Cells Ur Renal Epithelial Cell Urine Bacteria Hyaline Casts Ur Culture Indicated? Nasal Screen MRSA (PCR) Ethyl Alcohol Ketones SARS-CoV-2 (PCR) Influenza A (RT-PCR) Influenza B (RT-PCR) RSV (PCR) 04/19/23 06:02 WBC RBC Hgb Hct MCV MCH MCHC RDW Plt Count Neut % (Auto) Lymph % (Auto) [place] % (Auto) Eos % (Auto) Baso % (Auto) Neut # (Auto) Lymph # (Auto) [place] # (Auto) Eos # (Auto) Baso # (Auto) VBG pH VBG pCO2 VBG pO2 VBG HCO3 VBG Total CO2 VBG O2 Saturation VBG Base Excess FiO2 Sodium 126 L Potassium 4.2 Chloride 108 H Carbon Dioxide 16 L BUN 11 Creatinine 0.51 L Estimated GFR > 60 BUN/Creatinine Ratio 21.6 Glucose 148 H Hemoglobin A1c Lactate Calcium 9.0 Phosphorus Magnesium Total Bilirubin AST ALT Alkaline Phosphatase Total Creatine Kinase Troponin I Total Protein Albumin Globulin Albumin/Globulin Ratio Lipase Urine RBC Urine WBC Ur Squamous Epith Cells Ur Renal Epithelial Cell Urine Bacteria Hyaline Casts Ur Culture Indicated? Nasal Screen MRSA (PCR) Ethyl Alcohol Ketones SARS-CoV-2 (PCR) Influenza A (RT-PCR) Influenza B (RT-PCR) RSV (PCR) Exam Vital Signs (past 8 hours): - 04/19/23 02:00 04/19/23 02:00 04/19/23 02:30 Temperature Pulse Rate 75 73 Respiratory Rate 14 26 H Blood Pressure 89/52 L Pulse Oximetry 96 99 Oxygen Delivery Method 04/19/23 02:55 04/19/23 03:00 04/19/23 03:00 Temperature 96.7 F L Pulse Rate 67 Respiratory Rate 14 Blood Pressure 101/55 L Pulse Oximetry 99 Oxygen Delivery Method 04/19/23 03:30 04/19/23 04:00 04/19/23 04:00 Temperature Pulse Rate 66 Respiratory Rate 13 Blood Pressure 110/56 L Pulse Oximetry 99 Oxygen Delivery Method Room Air 04/19/23 04:00 04/19/23 04:30 04/19/23 05:00 Temperature Pulse Rate 67 71 66 Respiratory Rate 15 13 17 Blood Pressure Pulse Oximetry 98 99 99 Oxygen Delivery Method 04/19/23 05:00 04/19/23 05:30 04/19/23 06:00 Temperature Pulse Rate 66 Respiratory Rate 14 Blood Pressure 102/56 L 98/56 L Pulse Oximetry 99 Oxygen Delivery Method 04/19/23 06:00 04/19/23 06:30 04/19/23 07:00 Temperature Pulse Rate 69 66 65 Respiratory Rate 17 12 9 L Blood Pressure Pulse Oximetry 99 99 99 Oxygen Delivery Method 04/19/23 07:00 04/19/23 07:30 04/19/23 08:00 Temperature Pulse Rate 68 66 Respiratory Rate 15 14 Blood Pressure 129/64 Pulse Oximetry 99 98 Oxygen Delivery Method 04/19/23 08:00 04/19/23 08:00 04/19/23 08:30 Temperature 97.6 F Pulse Rate 78 Respiratory Rate 17 Blood Pressure 109/59 L Pulse Oximetry Oxygen Delivery Method 04/19/23 09:00 04/19/23 09:00 Temperature Pulse Rate 74 Respiratory Rate 24 Blood Pressure 106/59 L Pulse Oximetry 98 Oxygen Delivery Method Oxygen Delivery Method Room Air Quality TeleICU VTE Deep Vein Thrombosis/Pulmonary Embolism Present on Admission: No
[2023-04-19 10:27] LABS: Blood Urea Nitrogen 9 mg/dL (7-17); Calcium 9.1 mg/dL (8.4-10.2); Carbon Dioxide 17 mmol/L (22-32); Chloride 107 mmol/L (98-107); Estimated Glomerular Filt Rate > 60 mL/min (>60); Glucose 160 mg/dL (80-110); HEMOLYSIS < 15 (0-50); Potassium 4.2 mmol/L (3.4-5.1); Sodium 126 mmol/L (137-145)
[2023-04-19] MEDS: INSULIN GLARGINE 100 UNIT/ML 3ML PEN SUBCUT (11:26)
[2023-04-19] MEDS: SODIUM CHLORIDE 3 % 150 ML 30 ML IV (11:26)
[2023-04-19 12:19] LABS: Sodium Urine Random 48 mmol/L (30-90)
--- NOTE | 2023-04-19 13:20 | DI.RAD.S_ITS ---
PROCEDURE: XR CHEST 1V INDICATIONS: fever TECHNIQUE: One view of the chest was acquired. COMPARISON: None. FINDINGS: Surgical changes and devices: None. Lungs and pleura: Lungs are clear. No pleural effusions or pneumothorax. Mediastinum: Mediastinal contours appear normal. Heart size is normal. Bones and chest wall: S shaped thoracolumbar spine scoliosis. No suspicious bony lesions. Overlying soft tissues appear unremarkable. IMPRESSION: No acute cardiopulmonary abnormality is seen. Dictated by: Mami Lockwood MD, PhD on 04/19/2023 at 13:44 Approved by: Mami Lockwood MD, PhD on 04/19/2023 at 13:45
--- NOTE | 2023-04-19 13:21 | P.PN_ITS ---
Subjective Subjective Interval history: 77 F with no PMH admitted with DKA. Overnight provider discontinued insulin infusion this morning, no long acting insulin ordered. Based on previous rate added 5 U this AM, sliding scale added. Will continue to follow BMP for possible recurrence of DKA. Fever this afternooon, ordered for repeat CBC, CXR and blood cultures. UA negative. Exam Vital Signs (past 8 hours): - 04/19/23 05:30 04/19/23 06:00 04/19/23 06:00 Temperature Pulse Rate 66 69 Respiratory Rate 14 17 Blood Pressure 98/56 L Pulse Oximetry 99 99 04/19/23 06:30 04/19/23 07:00 04/19/23 07:00 Temperature Pulse Rate 66 65 Respiratory Rate 12 9 L Blood Pressure 129/64 Pulse Oximetry 99 99 04/19/23 07:30 04/19/23 08:00 04/19/23 08:00 Temperature Pulse Rate 68 66 Respiratory Rate 15 14 Blood Pressure 109/59 L Pulse Oximetry 99 98 04/19/23 08:00 04/19/23 08:30 04/19/23 09:00 Temperature 97.6 F Pulse Rate 78 74 Respiratory Rate 17 24 Blood Pressure Pulse Oximetry 98 04/19/23 09:00 04/19/23 09:30 04/19/23 10:00 Temperature Pulse Rate 77 72 Respiratory Rate 21 18 Blood Pressure 106/59 L Pulse Oximetry 99 99 04/19/23 10:00 04/19/23 11:00 04/19/23 11:00 Temperature Pulse Rate 74 Respiratory Rate 16 Blood Pressure 110/61 107/68 Pulse Oximetry 99 04/19/23 12:00 04/19/23 12:00 04/19/23 12:01 Temperature 97.8 F Pulse Rate 72 69 Respiratory Rate 21 18 Blood Pressure Pulse Oximetry 100 100 04/19/23 12:01 04/19/23 12:11 04/19/23 12:11 Temperature Pulse Rate 72 Respiratory Rate 21 Blood Pressure 110/6 L 124/62 Pulse Oximetry 99 04/19/23 12:30 04/19/23 12:46 04/19/23 13:00 Temperature 101.8 F H Pulse Rate 79 Respiratory Rate 22 Blood Pressure 112/69 Pulse Oximetry 04/19/23 13:00 Temperature Pulse Rate 81 Respiratory Rate 27 H Blood Pressure Pulse Oximetry Oxygen Delivery Method Room Air Narrative Exam Narrative: She appears somewhat lethargic but no acute distress. She has fluent speech. She is alert and oriented. She appears underweight. Normocephalic skull. EOMI. Anicteric sclerae, symmetric pupils. Oropharynx with dry mucosa. No facial droop. Neck supple, midline trachea. Lungs are clear, normal rate and effort. Heart is regular, no murmur. Abdomen is soft, non-tender. No masses are palpated. Extremities are free of edema, good pedal pulses. Skin is free of rash or lesions. Joints are not deformed. She can move arms and legs symmetrically has no facial droop normal speech. Objective Labs 04/18/23 15:39 04/19/23 10:00 Labs: Laboratory Results - last 24 hr 04/18/23 04/18/23 04/18/23 15:30 15:39 16:15 WBC 7.3 RBC 5.48 H Hgb 16.2 H Hct 48.4 H MCV 88.2 MCH 29.5 MCHC 33.5 RDW 14.0 Plt Count 417 H Neut % (Auto) 73.0 Lymph % (Auto) 17.9 L [place] % (Auto) 8.6 Eos % (Auto) 0.1 L Baso % (Auto) 0.4 Neut # (Auto) 5300 Lymph # (Auto) 1300 [place] # (Auto) 600 Eos # (Auto) 0 Baso # (Auto) 0 VBG pH 7.12 L* VBG pCO2 24.1 L VBG pO2 30 L VBG HCO3 8 L VBG Total CO2 9 L VBG O2 Saturation 41 L VBG Base Excess -21.0 L FiO2 21 Sodium 130 L Potassium 3.7 Chloride 98 Carbon Dioxide 9 L* BUN 14 Creatinine 0.88 Estimated GFR > 60 BUN/Creatinine Ratio 15.9 Glucose 387 H Hemoglobin A1c 10.8 H Lactate 2.0 Calcium 10.2 Phosphorus 4.0 Magnesium 2.0 Total Bilirubin 0.6 AST 25 ALT 23 Alkaline Phosphatase 119 Total Creatine Kinase 49 Troponin I < 0.012 Total Protein 8.4 H Albumin 4.9 Globulin 3.5 Albumin/Globulin Ratio 1.4 Lipase 128 Urine RBC Urine WBC Ur Squamous Epith Cells Ur Renal Epithelial Cell Urine Bacteria Hyaline Casts Ur Culture Indicated? Ur Random Sodium Nasal Screen MRSA (PCR) Ethyl Alcohol < 10 Ketones 10.14 H SARS-CoV-2 (PCR) Negative Influenza A (RT-PCR) Flu a negative Influenza B (RT-PCR) Flu b negative RSV (PCR) Negative 04/18/23 04/18/23 04/18/23 17:11 18:10 18:52 WBC RBC Hgb Hct MCV MCH MCHC RDW Plt Count Neut % (Auto) Lymph % (Auto) [place] % (Auto) Eos % (Auto) Baso % (Auto) Neut # (Auto) Lymph # (Auto) [place] # (Auto) Eos # (Auto) Baso # (Auto) VBG pH VBG pCO2 VBG pO2 VBG HCO3 VBG Total CO2 VBG O2 Saturation VBG Base Excess FiO2 Sodium 132 L Potassium 4.3 Chloride 105 Carbon Dioxide 6 L* BUN 13 Creatinine 0.64 Estimated GFR > 60 BUN/Creatinine Ratio 20.3 Glucose 310 H Hemoglobin A1c Lactate Calcium 8.4 Phosphorus Magnesium Total Bilirubin AST ALT Alkaline Phosphatase Total Creatine Kinase Troponin I Total Protein Albumin Globulin Albumin/Globulin Ratio Lipase Urine RBC 0-1/hpf Urine WBC 1-5/hpf Ur Squamous Epith Cells 1-5 /hpf Ur Renal Epithelial Cell 0-1/hpf Urine Bacteria None seen Hyaline Casts 5-10/lpf Ur Culture Indicated? Cult not indicated Ur Random Sodium Nasal Screen MRSA (PCR) Not detected Ethyl Alcohol Ketones SARS-CoV-2 (PCR) Influenza A (RT-PCR) Influenza B (RT-PCR) RSV (PCR) 04/18/23 04/18/23 04/19/23 22:07 23:16 02:24 WBC RBC Hgb Hct MCV MCH MCHC RDW Plt Count Neut % (Auto) Lymph % (Auto) [place] % (Auto) Eos % (Auto) Baso % (Auto) Neut # (Auto) Lymph # (Auto) [place] # (Auto) Eos # (Auto) Baso # (Auto) VBG pH 7.24 L VBG pCO2 28.5 L VBG pO2 81 H VBG HCO3 12 L VBG Total CO2 13 L VBG O2 Saturation 94 H VBG Base Excess -15.0 L FiO2 21 Sodium 131 L 128 L Potassium 3.1 L D 3.9 Chloride 111 H 109 H Carbon Dioxide 13 L 15 L BUN 12 12 Creatinine 0.51 L 0.50 L Estimated GFR > 60 > 60 BUN/Creatinine Ratio 23.5 H 24.0 H Glucose 177 H D 149 H Hemoglobin A1c Lactate Calcium 8.9 9.0 Phosphorus Magnesium Total Bilirubin AST ALT Alkaline Phosphatase Total Creatine Kinase Troponin I Total Protein Albumin Globulin Albumin/Globulin Ratio Lipase Urine RBC Urine WBC Ur Squamous Epith Cells Ur Renal Epithelial Cell Urine Bacteria Hyaline Casts Ur Culture Indicated? Ur Random Sodium Nasal Screen MRSA (PCR) Ethyl Alcohol Ketones SARS-CoV-2 (PCR) Influenza A (RT-PCR) Influenza B (RT-PCR) RSV (PCR) 04/19/23 04/19/23 04/19/23 06:02 10:00 11:33 WBC RBC Hgb Hct MCV MCH MCHC RDW Plt Count Neut % (Auto) Lymph % (Auto) [place] % (Auto) Eos % (Auto) Baso % (Auto) Neut # (Auto) Lymph # (Auto) [place] # (Auto) Eos # (Auto) Baso # (Auto) VBG pH VBG pCO2 VBG pO2 VBG HCO3 VBG Total CO2 VBG O2 Saturation VBG Base Excess FiO2 Sodium 126 L 126 L Potassium 4.2 4.2 Chloride 108 H 107 Carbon Dioxide 16 L 17 L BUN 11 9 Creatinine 0.51 L 0.53 Estimated GFR > 60 > 60 BUN/Creatinine Ratio 21.6 17.0 Glucose 148 H 160 H Hemoglobin A1c Lactate Calcium 9.0 9.1 Phosphorus Magnesium Total Bilirubin AST ALT Alkaline Phosphatase Total Creatine Kinase Troponin I Total Protein Albumin Globulin Albumin/Globulin Ratio Lipase Urine RBC Urine WBC Ur Squamous Epith Cells Ur Renal Epithelial Cell Urine Bacteria Hyaline Casts Ur Culture Indicated? Ur Random Sodium 48 Nasal Screen MRSA (PCR) Ethyl Alcohol Ketones SARS-CoV-2 (PCR) Influenza A (RT-PCR) Influenza B (RT-PCR) RSV (PCR) [facility] Medical History Hypertension Social History household members: none Smoking Status: Former smoker alcohol intake: former Assessment & Plan Assessment & Plan narrative: 1. New onset DKA, presumably type 2. Present on admission and active. 2. Severe metabolic acidosis secondary to DKA, present on admission and active. 3. Severe volume depletion, present on admission and active. 4. Alcohol abuse with no ingestion of significance over the last 2 weeks, present on admission and not active. 5. Tobacco dependence, present on admission and active. 6. Fever, not present on admission Plan: -Insulin infusion discontinued early this morning with resolution of DKA, still with NAGMA on labs. Started 5 U lantus and sliding scale, will need continued dosing adjustments. Monitor for recurrence with BMPs today. -her daughter is a hospice nurse and has some concerns about her pancreas. Given her age of presentation differential includes pancreatic mass, though bili is normal and normal LFTs. Also possible chronic pancreatitis leading to diabetes given EtOH history. Still autoimmune process in the differential as well. Also undiagnosed / treated type 2 diabetes a possibility with progression. Ordered [id number] Ab for tomorrow to help see if autoimmune process contributing. -Developed fever to 101.8 on HD#1, UA negative yesterday, CXR and blood cultures ordered today. After blood cultures give antibiotics depending on possible source. If CXR is unremarkable, consider abdominal CT to see if any possible abdominal source. She is full resuscitation, confirmed today. Her daughter is her durable power of research attorney and healthcare proxy. Her daughters also shellfish sorter. Approximately 30 minutes of critical care time was spent with the patient and coordinating her care. If repeat labs with no recurrence of DKA can be changed to floor care. Time Spent With Patient Time with patient: 30 to 49 minutes with 50% spent counseling/coordinating care Quality VTE Deep Vein Thrombosis/Pulmonary Embolism Present on Admission: No
[2023-04-19 13:43] LABS: Add Manual Diff / Slide Review NO; Basophils Absolute Auto 0 /uL (0-100); Basophils Percent Auto 0.4 % (0-2); Eosinophils Absolute Auto 100 /uL (0-450); Eosinophils Percent Auto 1.3 % (2-4); Hematocrit 36.4 % (36-46); Hemoglobin 12.6 g/dL (12.0-16.0); Lymphocytes Absolute Auto 1700 /uL (1100-4500); Lymphocytes Percent Auto 26.6 % (25-40); Mean Corpuscular HGB Conc 34.7 % (30-36); Mean Corpuscular Hemoglobin 29.8 PG (26-34); Mean Corpuscular Volume 85.8 fL (80-100); Monocytes Absolute Auto 700 /uL (0-900); Monocytes Percent Auto 11.1 % (3-14); Neutrophils Absolute Auto 3800 /uL (1500-7000); Neutrophils Percent Auto 60.6 % (50-75); Platelet Count 307 X10^3/uL (150-400); Red Blood Cell Count 4.24 X10^6/uL (4.0-5.2); Red Cell Distribution Width 13.6 % (11.6-14.8); White Blood Cell Count 6.3 X10^3/uL (4.5-11.0)
[2023-04-19 13:53] LABS: Sodium 127 mmol/L (137-145)
[2023-04-19 14:11] LABS: BUN Creatinine Ratio 15.7 (6-22); Blood Urea Nitrogen 8 mg/dL (7-17); Calcium 9.2 mg/dL (8.4-10.2); Carbon Dioxide 17 mmol/L (22-32); Chloride 105 mmol/L (98-107); Estimated Glomerular Filt Rate > 60 mL/min (>60); Glucose 185 mg/dL (80-110); HEMOLYSIS < 15 (0-50); Potassium 3.8 mmol/L (3.4-5.1); Sodium 127 mmol/L (137-145)
--- NOTE | 2023-04-19 14:17 | PM.EICU.INT ---
Teleintensivist Intervention Date/Time Was camera activated?: Yes Date Patient Seen: 04/19/23 Issue(s) Addressed Issue(s): Abnormal labs Other:: acute hyponatremia, recommended to check serum and urine osm, urine sodium, start 3% saline at 30 ml/ hr, BMP q3h, switch to salt tab 1 gm TID after sodium goal of 130 achieved,
--- NOTE | 2023-04-19 14:30 | CM.DANOTE ---
Initial DCP Assessment Visit Note Reviewed EMR and team rounds or pt's medical status and initial anticipated d/c needs. Met with pt at bedside to introduce self and role, pt found to be alert, oriented, able to engage in visit. Pt resides independently in her own apartment at baseline, her dtr is primary support and DPOA. Payor: Medicare PCP: Thompson Jalloh Pt is a 77 year-old F with a hx of hypertension, smoking, and alcohol use disorder with no prior hx of diabetes presented tot he ED on 04/18/23 wt complaints of worsening fatigue, weakness, poor appetite which started a few weeks ago. She also shared that she has not had a BM in about a week, and started vomiting over the last few days. Pt was found to be hyperglycemic and clinically dehydrated after ED evaluation, was tachyneic, and showed metabolic acidosis. ED dx was for DKA, new onset diabetes. Pt was started on IV insulin and admitted to the floor for further evaluation and treatment. Plan for d/c disposition is home with family assistance at this time. DCP will continue to follow and assist with evolving plan of care needs. Discharge Planning/Care Management CM Discharge Assessment Start: 04/19/23 14:21 Freq: Status: Active Protocol: Document 04/19/23 14:22 DPL (Rec: 04/19/23 14:29 DPL [id number]) Discharge Planning Assessment Assigned Sealer Sander RM Guerra DPOA/Assigned Designee Name Soniya Duenas dtr Advance Directives? Yes Advance Directives on File No History Provided By Patient,Medical Record Prior Living Arrangements Apartment/Condo Household Members none Type of transporation used prior to Drives own vehicle admit Independent with ADL's Yes Is patient alert and oriented? Yes Caregiver for Another No Comment No anticipated d/c needs identified at this time. Barriers to Discharge No Discharge Plan Home Transportation Arrangement Family Referrals Initiated None needed Whiteboard Updated in Patient Room with Yes name and ext. # of Sealer Sander Review Status In Process Please Provide Date Initial DC 04/19/23 Assessment Was Performed
[2023-04-19] MEDS: PIPERACILLIN/TAZO 3.375 GM in SODIUM CHLORIDE 0.9% 100 ML IV (16:50)
[2023-04-19 16:58] LABS: Sodium 128 mmol/L (137-145)
--- NOTE | 2023-04-19 17:11 | DIET.PN1 ---
Dietary Progress Note Assessment: 77F admitted with DKA. RD screen due to MNA 10. Newly diagnosed DM with Hga1c of 10.8%. Etiology of Dm unknown, h/o chronic pancreatitis vs T2DM. PMH of chronic ETOH use but reduced to half a beer several days ago per notes. Her daughter is bedside during assessment and helped with details. Reports constipation x 1 week. Reports UBW of 120# (last known wt 03/2023), indicating 9% weight loss over one month (severe) States she has been eating just bites through the day x 1 week (severe). Predicted <50-75% EER. Nutrition focused physical exam indicates boxed shoulders, moderate depressed temples and orbital. BMI low for age <21 (severe) Elevated BG could have also played a role in weight loss. Pt on fluid restriction due to hyponatremia. Ht: 160.02 cm Wt: 49.5 kg BMI: 19.1 UBW: 54.5kg (reported) Last BM: 04/11/23 (04/18/23 17:55) MNA: 10 Oliverio Score: 18 Diet: 04/19/23 Breakfast Carbohydrate Consistent Diet Diet Modifications: Carbohydrate level: Medium (3 CHO) Reflex DM orders: No Food Texture: Level 7 - Regular Liquid Consistency: Level 0 - Thin 04/19/23 Lunch Fluid Restriction Diet Diet Modifications: Total fluid amount: 750 Amount allotted to patient trays: 0 Free water included in total: No Fluid in addition to trays: 0162-4272 amount: 550 6912-4514 amount: 200 Food Texture: Level 7 - Regular Liquid Consistency: Level 0 - Thin Labs: RBC 4.24 X10^6/uL (4.0-5.2) 04/19/23 13:31 Hgb 12.6 g/dL (12.0-16.0) 04/19/23 13:31 Hct 36.4 % (36-46) 04/19/23 13:31 Creatinine 0.51 mg/dL (0.52-1.04) L 04/19/23 13:20 Hemoglobin A1c 10.8 % (4.0-6.0) H 04/18/23 15:39 Lactate 2.0 mmol/L (0.7-2.1) 04/18/23 15:30 Nutrition Diagnosis: Severe acute protein calorie malnutrition r/t inadequate energy intake aeb 9% weight loss over 1 month, GI symptoms (anorexia and constipation) x 1 week, nutrition focused physical exam indicating muscle/fat wasting, and BMI severely low for age at 19.1. -The patient is at much higher risk for medical and surgical complications because of their malnutrition.? This increases the difficulty and complexity of medical and surgical interventions and increases the chances of poor outcomes such as morbidity and mortality. Interventions: 1. Encouraged protein options. Pt currently on fluid restriction. Will offer higher kcal/prot shakes with fluid considerations. 2. Brief diabetes education: HgA1c, diagnosis, recent sugars, OP DSME resource EER: 45CCD, 90-100g PRO (1.8-2g/kg per PCM) Monitoring/Evaluations: RD f/u 3-5 days Electronically Signed by: Manuela Ochoa 04/19/23 17:11 Clinical Dietitian [address] [address]
--- NOTE | 2023-04-19 20:10 | PM.ICURNDS ---
- :: This patient was seen via real time interactive two-way audiovisual telecommunication. pt trasntioned to insulin basal bolus, she remains hyponatremic but it is slightly improved afte 3% infusion. Na now 128, she has beemn stated on salt tabs with bmp to follow. she is otherwise in NAd wit no chnage in her ms.
[2023-04-20] VITALS (12 sets, daily range): BP systolic 97–127; BP diastolic 59–76; PULSE 67–89; RESP 10–20; TEMP 36.1–36.9; O2SAT 94–98
[2023-04-20] MEDS: PIPERACILLIN/TAZO 3.375 GM in SODIUM CHLORIDE 0.9% 100 ML IV ×2 (00:19→08:18)
[2023-04-20 04:24] LABS: Add Manual Diff / Slide Review NO; Basophils Absolute Auto 0 /uL (0-100); Basophils Percent Auto 0.4 % (0-2); Eosinophils Absolute Auto 100 /uL (0-450); Eosinophils Percent Auto 1.5 % (2-4); Hematocrit 33.6 % (36-46); Hemoglobin 11.8 g/dL (12.0-16.0); Lymphocytes Absolute Auto 1900 /uL (1100-4500); Lymphocytes Percent Auto 38.4 % (25-40); Mean Corpuscular HGB Conc 35.2 % (30-36); Mean Corpuscular Hemoglobin 29.4 PG (26-34); Mean Corpuscular Volume 83.5 fL (80-100); Monocytes Absolute Auto 500 /uL (0-900); Monocytes Percent Auto 10.6 % (3-14); Neutrophils Absolute Auto 2500 /uL (1500-7000); Neutrophils Percent Auto 49.1 % (50-75); Platelet Count 247 X10^3/uL (150-400); Red Blood Cell Count 4.02 X10^6/uL (4.0-5.2); Red Cell Distribution Width 14.3 % (11.6-14.8)
[2023-04-20 04:30] LABS: Alanine Aminotransferase 16 IU/L (<35); Albumin 2.6 g/dL (3.5-5.0); Albumin Globulin Ratio 1.1 (1.0-2.8); Alkaline Phosphatase 76 U/L (38-126); Aspartate Aminotransferase 20 IU/L (14-36); BUN Creatinine Ratio 13.5 (6-22); Bilirubin Total 0.4 mg/dL (0.2-1.3); Blood Urea Nitrogen 7 mg/dL (7-17); Calcium 8.7 mg/dL (8.4-10.2); Carbon Dioxide 20 mmol/L (22-32); Chloride 109 mmol/L (98-107); Estimated Glomerular Filt Rate > 60 mL/min (>60); Globulin 2.4 g/dL (1.7-4.1); Glucose 163 mg/dL (80-110); HEMOLYSIS < 15 (0-50); Potassium 3.1 mmol/L (3.4-5.1); Sodium 131 mmol/L (137-145)
--- NOTE | 2023-04-20 06:21 | PC.NURSE ---
Pt has slept well this shift; she has ambulated to the toilet, but has been unable to have a BM; by her report, it has been 6 days since her last BM; she has active bowel sounds and her abd is soft and non-tender
[2023-04-20] MEDS: POTASSIUM CHLORIDE 20 MEQ TAB 40 MEQ PO ×2 (08:18→12:18)
[2023-04-20] MEDS: HEPARIN 5,000 UNIT/ML VIAL 5000 UNIT SUBCUT (08:19)
[2023-04-20] MEDS: SODIUM CHLORIDE 1,000 MG TABLET 1000 MG PO (08:19)
[2023-04-20] MEDS: INSULIN LISPRO 100 UNIT/ML 3ML VIAL SUBCUT ×2 (08:21→12:20)
[2023-04-20] MEDS: INSULIN GLARGINE 100 UNIT/ML 3ML PEN SUBCUT (08:22)
[2023-04-20 09:54] LABS: Magnesium 1.8 mg/dL (1.6-2.3)
[2023-04-20 10:49] LABS: Procalcitonin 0.08 ng/mL (<0.5)
[2023-04-20] MEDS: SENNOSIDES 8.6 MG TABLET PO (12:18)
[2023-04-20] MEDS: polyethylene glycoL 3350 17 GM POWD.PACK PO (12:18)
[2023-04-20 12:28] LABS: Osmolality, Serum 302 mOsmol/kg (280-301)
--- NOTE | 2023-04-20 12:32 | DI.CT.S_ITS ---
PROCEDURE: CT ABDOMEN PELVIS W CON INDICATIONS: rule out source of infection TECHNIQUE: After the administration of intravenous contrast, axial sections acquired from the lung bases to the pubic symphysis. Coronal and sagittal reformats were performed. For radiation dose reduction, the following was used: automated exposure control, adjustment of mA and/or kV according to patient size. COMPARISON: None. FINDINGS: Image quality: Diagnostic. Lower Chest: Minor dependent atelectatic change left posterior lung base. Normal size heart. No hiatal hernia. ABDOMEN: Liver: An irregular subcapsular, unencapsulated 2.1 cm hypodensity is noted in segment 5 of the liver. No other liver lesions. Elongated right hepatic lobe. Gallbladder: No radiopaque gallstones or wall thickening. Biliary ducts: No biliary dilation. Pancreas: No ductal dilation. Spleen: Size is within normal limits. Adrenal Glands: No adrenal nodules. Kidneys and Ureters: No hydronephrosis. No solid mass. No complex renal cystic lesion which requires follow up. Stomach and Bowel: Stomach and small bowel loops are normal caliber. No bowel obstruction. Increased stool quantity. No suspicious colon wall thickening. Peritoneum: No abnormal intraperitoneal fluid. No free air. Ventral Wall: No hernia. Abdominal Nodes: No retroperitoneal or mesenteric adenopathy by size criteria. Vessels: Aorta and inferior vena cava are normal in size. PELVIS: Pelvic Organs: Vertically oriented uterus with some vascular calcification. Ovaries are not seen. Bladder: Urinary bladder is decompressed. No calcifications. Pelvic Nodes: No enlarged lymph nodes. Miscellaneous: No inguinal hernias are seen. Bones: Degenerative changes in the spine. Nonspecific sclerotic lesion in the right iliac bone. IMPRESSION: 1. No source of sepsis found. 2. Liver lesion is most likely a hemangioma and can be better characterized by 3 phase contrast-enhanced liver protocol CT or MRI. Dictated by: Naomy Cardozo M.D. on 04/20/2023 at 13:40 Approved by: Naomy Cardozo M.D. on 04/20/2023 at 14:49
--- NOTE | 2023-04-20 13:55 | PT.IIE ---
Current Diagnoses Other specified diabetes mellitus with ketoacidosis without coma (04/18/23) Medical History (Last Reviewed 04/19/23 @ 13:35 by Ilya Whyte DO) Hypertension Physical Therapy Inpatient Evaluation/Re-Eval M1 PT/OT-IP Prior Functional Status Start: 04/20/23 14:37 Freq: NEEDED Status: Active Protocol: Document 04/20/23 13:55 AB (Rec: 04/20/23 14:51 AB [id number]) Medical Review Prior Functional Status Medical History Reviewed Yes Communication able to make needs known Mobility and Gait pt stated that she was independent with all mobilities and ambulation without AD but tends to furniture cruise Social History Household Members none Living Arrangements Apartment/Condo Number of Floors (Floors) One Floor Number of Stairs To Enter/Railing? 6 steps R rail ascending to enter Home Environment Standard Height Toilet,Tub/ Shower Home Equipment Grab Bars In Shower M2 PT-IP Current Condition Start: 04/20/23 14:37 Freq: NEEDED Status: Active Protocol: Document 04/20/23 13:55 AB (Rec: 04/20/23 14:51 AB [id number]) Physical Therapy Current Condition Current Condition Evaluation Date 04/20/23 Treatment Diagnosis DKA; difficulty in walking Onset Date 04/18/23 M3 PT-IP Subjective Start: 04/20/23 14:37 Freq: NEEDED Status: Active Protocol: Document 04/20/23 13:55 AB (Rec: 04/20/23 14:51 AB [id number]) Subjective Physical Therapy Visit Type Type Initial Evaluation Visit Start Time 13:55 Visit Stop Time 14:28 Total Visit Minutes 33 Number of MANAGER SOLAR Visits 0 Physical Therapy Visit Comments Patient Comments stated that she is very tired Therapy Pain Assessment Pain Present Pain Present Denied Pain M4 PT-IP Mobility and Gait Start: 04/20/23 14:37 Freq: NEEDED Status: Active Protocol: Document 04/20/23 13:55 AB (Rec: 04/20/23 14:51 AB [id number]) PT-Bed Mobility Assessment Supine to Sit Supine to Sit Independent Sit to Supine Sit to Supine Independent PT-Transfer Assessment Sit to and From Stand Sit to and from Stand Standby Assistance Equipment Transfer Assistive Device None,Gait Belt,Front Wheeled Walker Orthotic/Prosthetic Devices or Brace: No Transfers Transfer Destination Chair Transfer Technique ambulated Transfer Ability Level of Assist Standby Assistance,1 Person Assistance Comments Mobility Comments pt supine in bed. pt's daughter and ARTURO in room. stated that they can assist pt as needed but cannot stay with pt because they work. obtained PLOF and home set up. BP in supine: 122/70. pt completed supine to sit independent. able to sit on EOB SBA. completed sit to stand sBA and ambulated to the chair using fWW SBA. presents with slow paced gait. pt sat on the chair. assess ambulation without AD. completed sit to stand SBA and ambulated in room ~ 12 ft without AD SBA to occasional CGA. pt sat on the chair. pt agreed to do stairs. completed sit to stand SBA and ambulated in the hallway > 300 ft without AD SBA to occasional CGA with no LOB. presents with antalgic gait with increase lateral trunk lean to the R with narrrow EMI . cued pt to correct posture and increase EMI. pt completed up/down stair using R rail ascending CGA. pt assisted back to her room. ambulated from w/c to bed SBA without AD. completed sit to supine independent. call light and table placed within reach . informed pt and family regarding use of FWW for long distance ambulation for safety and HHPT recommendation at this time. also recommending a shower chair. pt's daughter stated that she will be borrowing a walker, shower chair and bedside commode from the [employer] today. informed case technician and hospitalist for HHPT. Gait Assessment Gait Gait Assistance Required: Standby Assistance,Contact Guard Assist Distance (Feet) 300 Able to Maintain Weight Bearing Status Yes During Gait Assistive Devices Assistive Device None,Gait Belt,Front Wheeled Walker Orthotic/Prosthetic Devices or Brace: No Gait Deviations General Gait Pattern Antalgic,Decreased Stride Length,Decreased Feet Clearance,Flexed Trunk Factors Limiting Gait Function Factors Limiting Gait Function Decreased Activity Tolerance, Decreased Strength,Poor Balance,Poor Safety Awareness Stair Climbing Assessment Evaluation Level of Assist On Stairs Contact Guard Assistance Devices Stair Climbing Assistive Devices Right Railing Technique/Endurance Stair Climbing Direction Ascend and Descend Stair Climbing Technique Step to Step Number of Steps Climbed 3 Query Text: Stair Climbing Set # Repetitions (reps) 1 PT-Balance Assessment Sitting Balance and Reactions Static Sitting Balance Ability Normal Dynamic Sitting Balance Ability Normal Standing Balance and Reactions Static Standing Balance Ability Good Dynamic Standing Balance Ability Fair Device Used without AD M5 PT-IP Objective Assessments Start: 04/20/23 14:37 Freq: NEEDED Status: Active Protocol: Document 04/20/23 13:55 AB (Rec: 04/20/23 14:51 AB [id number]) Orientation Orientation/Cognition Level of Alertness Alert Orientation Name,Situation Language Function Ability No Deficits Noted Safety Awareness Decreased Safety Awareness Memory Description No Deficits Noted Gross Range of Motion Lower Extremity ROM Assessment Within Functional Limits Strength Lower Extremity Strength Assessment Within Functional Limits Muscle Tone Muscle Tone WNL Yes M6 PT-IP Treatment Start: 04/20/23 14:37 Freq: NEEDED Status: Active Protocol: Document 04/20/23 13:55 AB (Rec: 04/20/23 14:51 AB [id number]) Physical Therapy Treatment Education Education Provided Safety M7 PT-IP Assessment and Plan Start: 04/20/23 14:37 Freq: NEEDED Status: Active Protocol: Document 04/20/23 13:55 AB (Rec: 04/20/23 14:51 AB [id number]) PT Summary Assessment and Plan Potential Rehabilitation Potential Fair Status of Condition at Evaluation Stable Summary Impairments Pain,ROM,Strength,Balance, Coordination,Sensation,Tone, Cognition,Bed Mobility, Transfers,Gait,Activity Tolerance Assessment Summary pt is a 77 y/o F who presented to the ED with c/o weakness. pt admitted for DKA. pt requiring SBA to CGA with mobility without AD but with decrease actvity tolerance affecting mobility independence. Recommending use of FWW for long distance mobility and HHPT at this time . family plans to borrow DME from the [employer]. Goals Transfer Goal Independent Gait Goal Independent Gait Distance 350 Other Goals up/down 6 steps R rail ascending mod I Days to Meet Goals 10 Frequency of Treatment Frequency Of Treatment Once a Day Treatment Plan Physical Therapy Treatment Plan Bed Mobility Training,Transfer Training,Gait Training, Therapeutic Exercise,Balance Retraining,Discharge Planning, Hot or Cold Pack,Neuromuscular Re-ed,Coordination Retraining Recommendations To Nursing Amount of Assist Needed Standby Assistance Discharge Recommendations PT Discharge Recommendations Home with Assistance,Home Health Transportation Needs at Discharge Private Vehicle
--- NOTE | 2023-04-20 14:13 | CM.DPC ---
Addendum entered and electronically signed by RM Patten 04/20/23 14:41: Per PT evaluation, GUM MACHINE FILLER ordered [facility] for PT. Original Note: DCP Cont. Reviewed EMR and team rounds for status updates. Pt has steadily improved since admission, today met with the Truck Repair Service Estimator and has begun sliding scale insulin. Plan is to d/c home today, dtr will transport. F/u with PCP for OP Endocrinology and cont. Diabetes Education. No further DCP needs indicated at this time.
--- NOTE | 2023-04-20 15:21 | P.DS_ITS ---
History of Present Illness History of Present Illness Date Patient Seen: 04/18/23 Time Patient Seen: 17:59 Date of Onset of Symptoms: 04/13/23 Chief complaint: fatigue, weakness, no appetite, no bm, vomiting,bp Narrative: The patient is a 77-year-old female with a history of hypertension who stopped taking blood pressure medication some time ago as well as a history of chronic alcohol abuse and tobacco use. She has been progressively ill for 3-4 weeks with progressive weakness and anorexia. She stopped all alcohol ingestion about 2 weeks ago except for a half of a beer several days ago. She stopped smoking about 2 weeks ago because of the way she was feeling. Because of progressive weakness she presented to the ED with her family today. Her daughter is a hospice nurse and her son-in-law is a EMT. He did note fruity breath. In the emergency department she was found to have hyperglycemia and a pH of 7.1 with positive ketones. She was clinically very dehydrated. She also had evidence of hemoconcentration with a hemoglobin of 16.2 and hematocrit of 48.4. She was tachypneic and response to her acidosis in her lactic acid was negative. She denies chest pain and had a normal EKG she denies abdominal pain but has been vomiting for 2 days. She has no known history of pancreatitis. She has been constipated and had very concentrated urine. She denies any infectious symptoms other than a mild cough. No fevers or chills. No hematuria or dysuria. Discharge Providers Provider Date of admission: 04/18/23 17:47 Discharge Date: 04/20/23 Primary care physician: Thompson Jalloh MD Consults: 04/20/23 10:34 Consult to Dietitian, Adult Routine Comment: Reason For Exam: diabetes education - new diagnosis 04/20/23 12:41 Consult to Physical Therapy Evaluate & Treat Comment: Physician Instructions: Evaluate and Treat 04/20/23 14:40 Consult to Home Health Routine Comment: PT Reason For Exam: Home Health Services Discharge provider: Mike Lee DO Summary Hospital Course Discharge Diagnosis: 1. New onset DKA, presumably type 2. Present on admission and active. 2. Severe metabolic acidosis secondary to DKA, present on admission and now resolved. 3. Severe volume depletion, present on admission and resolved. 4. Alcohol abuse with no ingestion of significance over the last 2 weeks, present on admission and not active. 5. Tobacco dependence, present on admission and active. Hospital Course: Admitted for worsening fatigue, weakness, vomiting and found to be in DKA with severe acidosis. Started on insulin drip and over 2 days patient's gap closed and acidosis corrected. She began to feel much better. A1c came back at 10.8%. CT abdomen done which was normal. Also had hyponatremia due to likely SIADH so given 3% saline then transitioned to po salt tabs and Na corrected to 131. Patient transitioned to lantus and will follow-up with PCP for endocrinology referral. Exam Vital Signs (past 8 hours): - 04/20/23 08:00 04/20/23 08:34 04/20/23 12:00 Temperature 98 F 96.9 F L Pulse Rate 89 78 Respiratory Rate 18 20 Blood Pressure 120/75 97/59 L Pulse Oximetry 98 95 Oxygen Delivery Method Room Air Oxygen Flow Rate 0 0 Oxygen Delivery Method Room Air Oxygen Flow Rate 0 Narrative Exam Narrative: GEN: no acute distress, thin woman HEENT: moist mucous membranes, PERRL NECK: trachea midline, no JVD CV: regular rate and rhythm, no murmurs PULM: clear bilaterally ABD: soft, nontender, nondistended, no organomegaly EXT: warm and well perfused with no edema NEURO: awake, alert, oriented, no focal deficits Objective Labs 04/20/23 03:56 04/20/23 03:56 Labs: Laboratory Results - last 24 hr 04/18/23 04/19/23 04/20/23 15:39 16:35 03:56 WBC 5.0 RBC 4.02 Hgb 11.8 L Hct 33.6 L MCV 83.5 MCH 29.4 MCHC 35.2 RDW 14.3 Plt Count 247 Neut % (Auto) 49.1 L Lymph % (Auto) 38.4 [place] % (Auto) 10.6 Eos % (Auto) 1.5 L Baso % (Auto) 0.4 Neut # (Auto) 2500 Lymph # (Auto) 1900 [place] # (Auto) 500 Eos # (Auto) 100 Baso # (Auto) 0 Sodium 128 L 131 L Potassium 3.1 L Chloride 109 H Carbon Dioxide 20 L BUN 7 Creatinine 0.52 Estimated GFR > 60 BUN/Creatinine Ratio 13.5 Glucose 163 H Serum Osmolality 302 H Calcium 8.7 Magnesium 1.8 Total Bilirubin 0.4 AST 20 ALT 16 Alkaline Phosphatase 76 Total Protein 5.0 L Albumin 2.6 L Globulin 2.4 Albumin/Globulin Ratio 1.1 Procalcitonin 04/20/23 10:19 WBC RBC Hgb Hct MCV MCH MCHC RDW Plt Count Neut % (Auto) Lymph % (Auto) [place] % (Auto) Eos % (Auto) Baso % (Auto) Neut # (Auto) Lymph # (Auto) [place] # (Auto) Eos # (Auto) Baso # (Auto) Sodium Potassium Chloride Carbon Dioxide BUN Creatinine Estimated GFR BUN/Creatinine Ratio Glucose Serum Osmolality Calcium Magnesium Total Bilirubin AST ALT Alkaline Phosphatase Total Protein Albumin Globulin Albumin/Globulin Ratio Procalcitonin 0.08 PFSH Medical History Hypertension Social History household members: none Smoking Status: Former smoker alcohol intake: former Discharge Plan Discharge Plan Patient Disposition: Home Provider Discharge Comment: You were admitted for DKA. You will now be on insulin daily. Your CT abdomen showed nothing concerning. Please follow-up with your PCP for a referral to endocrinology for management and further workup of your diabetes. Dr. Lee Discharge orders & Medications Prescriptions: New insulin glargine [Lantus Solostar U-100 Insulin] 100 unit/mL (3 mL) insulin pen 10 unit SUBCUT DAILY Qty: 15 0RF Continued multivitamin Tablet 1 tab PO DAILY Follow up/Referrals: Thompson Jalloh MD [Primary Care Provider] - 2 Weeks Visit Report/Discharge Packet Instructions: How to Check Your Blood Glucose, DI for Diabetes Type 2, Taking Care of Your Diabetes When You Are Sick, DI for Hypoglycemia, DI for Hyperglycemia -- Adult, The Importance of Counting Carbs If You Have Diabetes, Insulin Types, How to Use an Insulin Pen Stand Alone Forms: Patient Portal/API, Stroke Signs & Symptoms Discharge Data Primary Care Provider: Thompson Jalloh Quality VTE Deep Vein Thrombosis/Pulmonary Embolism Present on Admission: No
== END 2023-04-20 16:35 | disposition home health service (06) | DRG 637 ==
LOC: ED 17:35 → AC 17:48 → ICU 18:23
PROVIDERS: Internal Medicine; Internal Medicine Critical Care Medicine; Student in an Organized Health Care Education/Training Program; Admitting Provider Hospitalist; Emergency Provider Emergency Medicine; PCP Family Medicine; Referring Provider Emergency Medicine; Visit Provider Hospitalist
DX: E11.10 Type 2 diabetes mellitus with ketoacidosis without coma (principal); E43 Unspecified severe protein-calorie malnutrition; Z68.1 Body mass index [BMI] 19.9 or less, adult; E22.2 Syndrome of inappropriate secretion of antidiuretic hormone; R50.9 Fever, unspecified; E86.9 Volume depletion, unspecified; F10.11 Alcohol abuse, in remission; E86.0 Dehydration; Y90.0 Blood alcohol level of less than 20 mg/100 ml; Z79.4 Long term (current) use of insulin; Z87.891 Personal history of nicotine dependence
CPT/HCPCS: 0241U; 36415; 71045; 74177; 80048; 80053; 80320; 81003; 81015; 82009; 82550; 82805; 82962; 83036; 83605; 83690; 83735; 83930; 84100; 84145; 84295; 84300; 84484; 85025; 86341; 87040; 87797; 93005; 93010; 96361; 96365; 96368; 96375; 97161; 99284; 99285; 99291; J1644; J1815; J2405; J2543; J7050; Q9967

== ENCOUNTER → 2023-04-28 13:29 | Outpatient (CLI) | payer OTHER, SELFPAY ==
[2023-04-18 17:55] VITALS: BMI 19.1
--- NOTE | 2023-05-04 17:14 | DIAB.MNT ---
Initial Diabetes Medical Nutrition Therapy Assessment Name: Jaylene Melvin Date: 04/28/23 Time: 135-245p Dx: Type II Diabetes Provider: Yeimi Mariee presents with daughter, Soniya. RD/FRITZ familiar with this pt from inpatient admission of DKA. Newly diagnosed with Dm with HgA1c of 10.8%. Checking FBG and some pre dinner readings. Continues on Lantus at 15u. Added Metfomrin 500mg BID, with some loose stool but manageable per report. Recently gave up juice. Has questions regarding portions of carbs and timing. Diet Recall: 9am: yogurt x 1c with banana and nuts and 8oz oat milk OR 1c oats with dried apricots and nuts and oat milk 2p: beet salad with veg and feta OR multigrain bread with PB or cheese +/- canned soup 1.5c and 0-8oz oat milk 5-6p: protein and veggies ie chx and vegetables sometimes small potatoes sn: tapioca pudding or nothing Tonya: oat milk, water 32oz, coffee with oatmilk Anthropometrics: Ht: 63 Wt: 96.72# last weight during admission 04/2023 Diagnosed with severe protein calorie malnutrition while admitted. Weight loss likely exacerbated by reduced appetite and hyperglycemia prior to admission. Physical Activity: Reports feeling very week. No activity currently. Wants to start walks. Self-Monitoring Blood Glucose: Today FBG 143 mg/dl. Overall, FBG 140-150mg/dl. Predinner was elevated at 455mg/dl after skipping Lantus night before. Diabetes Medications: Lantus 55u Metfomrin 500mg BID Pertinent Labs: HgA1c 10.8% 04/2023 Past Medical History: (Last Reviewed 04/19/23 @ 13:35 by Ilya Whyte DO) Hypertension Nutrition Rx: Carbohydrates: Meal:30-45g Snack:15-30g Nutrition Diagnosis: - Altered nutrition related lab value r/t endocrine dysfunction aeb hgA1c of 10.8% - Nutrition and food related knowledge deficit r/t newly dx with T2DM and underweight aeb HgA1c 10/8% and low BMI for age. Intervention: This participant was very receptive. Provided appropriate educational handouts. Discussed the following topics: Completed intake assessment. Discussed barriers to care. Pathophysiology of T2DM HgA1c, its correlation to blood glucose numbers, and rationale for goal Importance of self-monitoring, how often, and when to check. Suggested checking at different times to evaluate meals Plate Method, impact of macronutrients on blood sugar, meal timing, carbohydrate counting, pairing macronutrients and spreading out carbohydrates for better blood glucose management Recommended servings for carbohydrates at meals and snacks Heart health nutrition Brainstormed appropriate meal plan based on food preferences Encouraged heart healthy fats and protein and complex carbs to assist with kcal intake for healthy weight gain. Role of physical activity and following provider guidelines for safety Created SMART goals for patient self-care and success. Goals: Switch to Presley bread Keep banana in yogurt to half Try to eat q 3-4 hours Follow-up: [facility] follow-up in 2-3 weeks Manuela Ochoa RDN, FRITZ Certified Diabetes Care and Dance Therapist P: [phone] Thank you for this referral
== END ==
PROVIDERS: PCP Family Medicine; Referring Provider Family Medicine; Visit Provider Family Medicine
DX: E11.9 Type 2 diabetes mellitus without complications (principal); Z79.84 Long term (current) use of oral hypoglycemic drugs; Z79.4 Long term (current) use of insulin; Z71.3 Dietary counseling and surveillance
CPT/HCPCS: 97802

== ENCOUNTER → 2023-05-14 09:57 | Outpatient (CLI) | payer OTHER, SELFPAY ==
[2023-04-18 17:55] VITALS: BMI 19.1
--- NOTE | 2023-05-25 17:12 | DIAB.MNTFU ---
Follow-up Diabetes Medical Nutrition Therapy Assessment Name: Jaylene Melvin Date: 05/14/23 Time: [id number] Dx: Type II Diabetes Jaylene presents for Dm follow-up today unaccompanied. Sees provider this month. Given hyperglycemia might benefit from increase to Lantus, however she is hesitant. Weight today up to 117#, improved. States UBW is 118#. Taking half 500mg Metformin BID due to GI distress. Taking with food. Started walking BID. Feels with more walking her BG will come down. Diet recall indicates balanced carb/pro meals and snacks. Meeting goals for CHO portions. Incorporating veggies and fruit. Started using protein shake with low carb and adequate pro in morning. Sometimes no HS snack, potential for HS snack to help with gluconeogenesis and help with FBG? Anthropometrics: Ht: 63 Wt: 117# today with shoes Weight history: 96.72# last weight during admission 04/2023 Diagnosed with severe protein calorie malnutrition while admitted. Weight loss likely exacerbated by reduced appetite and hyperglycemia prior to admission. Physical Activity: Started walking BID Self-Monitoring Blood Glucose: FBG consistently elevated though varies. pre dinner often elevated. Date Pre Post Pre Post Pre Post HS 2/3 136 185 2/4 163 219 2/5 2/6 137 307 2/7 184 264 2/8 167 331 2/ 204 Diabetes Medications: Lantus 10u Metformin 250mg BID due to GI upset Pertinent Labs: HgA1c 10.8% 04/2023 Past Medical History: (Last Reviewed 04/19/23 @ 13:35 by Ilya Whyte DO) Hypertension Nutrition Rx: Carbohydrates: Meal:30-45g Snack:15-30g Nutrition Diagnosis: - Altered nutrition related lab value r/t endocrine dysfunction aeb hgA1c of 10.8% - Nutrition and food related knowledge deficit r/t newly dx with T2DM and underweight aeb HgA1c 10/8% and low BMI for age.- improved Intervention: This participant was very receptive. Provided appropriate educational handouts. Discussed the following topics: Blood sugar review and trends. Impact of food, hormones, and meds on results. Meal planning and carb counting review Protein shake recs Physical activity plan and progress BG goals per ADA and/or trying to at least get under 150 FBG and under 200 pp Created SMART goals for patient self-care and success. Goals: Switch to Presley bread- met Keep banana in yogurt to half- d/c (not eating yogurt) Try to eat q 3-4 hours- in progress Cont walks 2x per week- new Cont BG checks- new Try HS snack - new Follow-up: [facility] follow-up in 3-4 weeks. Would anticipate the need for further DM meds to help reduce FBG; however may be worth seeing how physical activity also impacts FBG as she increases activity. May benefit from increase in Lantus or other dm med coverage for hyperglycemia pre dinner and FBG. Manuela Ochoa RDN, [facility] Certified Diabetes Care and Gyroscope Technician P: [phone] Thank you for this referral
== END ==
PROVIDERS: PCP Family Medicine; Referring Provider Family Medicine; Visit Provider Family Medicine
DX: E11.65 Type 2 diabetes mellitus with hyperglycemia (principal); Z79.84 Long term (current) use of oral hypoglycemic drugs; Z79.4 Long term (current) use of insulin; Z71.3 Dietary counseling and surveillance
CPT/HCPCS: 97803

== ENCOUNTER → 2023-06-08 09:47 | Outpatient (CLI) | payer OTHER, SELFPAY ==
[2023-04-18 17:55] VITALS: BMI 19.1
--- NOTE | 2023-06-08 14:50 | DIAB.FU ---
Follow-up Diabetes Education Assessment Name: Jaylene Melvin Date: 06/08/23 Time: 10-11a Dx: Type II Diabetes Jaylene presents for DM followup. Reports diet within carb recs and adding protein more consistently. Reports increased Lantus dose since seeing PCP, now 15u AM. Endorses GI upset acidic stomach Metformin. May or may not improve with XR version? Tried protein shake. Accidentally purchased the 30g shake vs 20g protein. She is wondering if this is too high. Does seem high given other protein foods in a sitting. Has questions about sugar free candy. Got new DM recipe book. Physical Activity: No consistent program. Walking once per day weather dependent. Plans to extent walking distance over time. Has an odometer. Self-Monitoring Blood Glucose: FBG are in goal most day. Pre dinner are variable and sometimes significantly elevated likely warranting additional DM medication, oral v injection? Date Pre Post Pre Post Pre Post Notes 06/02 127 314 121 501 Cupcake in afternoon 06/03 100 151 06/04 105 109 06/05 80 06/06 70 376 06/07 119 Diabetes Medications: Lantus 15u Metformin 250mg BID due to GI upset Pertinent Labs: HgA1c 10.8% 04/2023 Past Medical History: (Last Reviewed 04/19/23 @ 13:35 by Ilya Whyte DO) Hypertension Intervention: This participant was very receptive. Provided appropriate educational handouts. Discussed the following topics: Recent blood sugar results and trends Medication management: potential for XR Metformin, potential for other DM med given hyperglycemia Review of general nutrition recommendations and current intake Physical activity plan and impact on blood sugars Protein recs per sitting SF candies and potential GI Se Created SMART goals for patient self-care and success. Goals: Cont BG checks- met Try HS snack - met Ask PCP about potential for XR Metformin- new Try 1/2 protein shake per sitting- new Wear Odometer to track steps- new Follow-up: [facility] follow-up in 2-3 weeks Manuela Ochoa RDN, [facility] Certified Diabetes Care and Pan Reclaim Processor P: [phone] Thank you for this referral
== END ==
LOC: DIET 09:48
PROVIDERS: PCP Family Medicine; Referring Provider Family Medicine; Visit Provider Family Medicine
DX: E11.9 Type 2 diabetes mellitus without complications (principal); Z79.84 Long term (current) use of oral hypoglycemic drugs; Z79.4 Long term (current) use of insulin; Z71.3 Dietary counseling and surveillance
CPT/HCPCS: G0108

== ENCOUNTER → 2023-07-08 10:18 | Outpatient (CLI) | payer OTHER, SELFPAY ==
[2023-04-18 17:55] VITALS: BMI 19.1
--- NOTE | 2023-07-29 09:41 | DIAB.MNTFU ---
Follow-up Diabetes Medical Nutrition Therapy Assessment Name: Jaylene Melvin Date: 07/08/23 Time: 1030-1110a Dx: Type II Diabetes Reports last hgA1c still >10%. Reports no changes to medications last PCP visit. Based on BG logs, likely needs meal time insulin or may benefit from 70/30 insulin to avoid >2 injections per day. Would benefit from CGM, however she is not completely open to this at this time. States provider changed her dx to T1DM. Pt with h/o ETOH abuse. T1 v T3c? Continues on Lantus 15u in the AM. Variable FBG, but most <200mg/dl recently. States she has been sick recently. Stopped drinking protein shakes. Got a DM for [employer]. Wants to attend DM classes in August. Interested in making salads and increasing walking. Diet recall: 9a: multigrain hot cereal 1/2c cooked with eggs and 1 ww thin toast 1p: half can Marichuy's lentil soup with goat cheese +/- 1 serving bread sn: nothing or carrots with pb or hummus 5p: schultz salad OR burger with couple fries Sn: nuts or pb celery or carrots water 32oz+ coffee 2c Physical Activity: Periodic walking. Was sick recently, reduced walking Self-Monitoring Blood Glucose: 2/ elevated FBG. 3 pc readings for review and all >180mg/dl indicating likely need for prandial coverage. Date Pre Post Pre Post Pre Post HS 06/24 125 06/26 177 06/27 402 06/28 247 06/30 276 07/02 110 305 07/06 124 Diabetes Medications: Lantus 15u Metformin 250mg BID due to GI upset (d/c due to change in dx by PCP) Pertinent Labs: HgA1c 10.8% 04/2023 10.3% 06/2023 Past Medical History: (Last Reviewed 04/19/23 @ 13:35 by Ilya Whyte DO) Hypertension Nutrition Rx: Carbohydrates: Meal:30g Snack:15g Nutrition Diagnosis: - Altered nutrition related lab value r/t endocrine dysfunction aeb hgA1c of 10.3% -Physical inactivity r/t recent illness aeb pt report - new Intervention: This participant was very receptive. Provided appropriate educational handouts. Discussed the following topics: Blood sugar review and trends. Impact of insulin insufficiencies on BG on results. Potential for mealtime insulin Physical activity plan and progress Meal planning review CGM potential/benefits Brief discussion of types of DM, ie T1 v T2 Created SMART goals for patient self-care and success. Goals: Ask PCP about potential for XR Metformin- d/c Try 1/2 protein shake per sitting- not met Wear Odometer to track steps- not met Start making salads for meals- new Restart walking safely- new Follow-up: [facility] follow-up in August for classes and 1:1 f/u Manuela Ochoa RDN, [facility] Certified Diabetes Care and Homemaker Companion P: [phone] Thank you for this referral
== END ==
PROVIDERS: PCP Family Medicine; Referring Provider Family Medicine; Visit Provider Family Medicine
DX: E11.9 Type 2 diabetes mellitus without complications (principal); Z79.4 Long term (current) use of insulin; Z71.3 Dietary counseling and surveillance
CPT/HCPCS: 97803

== ENCOUNTER → 2023-08-24 09:25 | Outpatient (CLI) | payer OTHER, SELFPAY ==
[2023-04-18 17:55] VITALS: BMI 19.1
--- NOTE | 2023-08-24 11:59 | DIAB.FU ---
Diabetes Education Class Series: Diabetes Physiology and Medications Name: Jaylene Melvin Date: 08/24/23 Time: 930-1100a Jaylene presents for class 2 of 3. Left 30 min early. Class topics covered: ? Diabetes pathophysiology ? Discuss different types of diabetes ? Review criteria for diagnosing diabetes ? Review HgA1c measurement and associated blood sugars ? Review blood sugar monitoring safety, technique, and goals ? Discuss ways to reduce complications associated with diabetes, includes microvascular and macrovascular complications ? Review diabetes medications types, action, and side effects ? SMART goals review Follow-up: Diabetes Lifestyle and Ongoing Support Class next week Manuela Ochoa RDN, [facility] Registered Dietitian, Certified Diabetes Care and Heel Sprayer [employer] [phone] [email or web address]
== END ==
PROVIDERS: PCP Family Medicine; Referring Provider Family Medicine
DX: E11.9 Type 2 diabetes mellitus without complications (principal); Z71.3 Dietary counseling and surveillance; Z79.4 Long term (current) use of insulin
CPT/HCPCS: G0109

== ENCOUNTER 2024-04-18 16:06 | Inpatient (IN) | payer OTHER, SELFPAY ==
[2023-04-18 17:55] VITALS: BMI 19.1
[2024-04-18] VITALS (23 sets, daily range): BP systolic 94–135; BP diastolic 51–62; PULSE 90–107; RESP 15–30; TEMP 36–37.2; O2SAT 97–100; BMI 19.3
--- NOTE | 2024-04-18 16:10 | EKG_ITS ---
[address] [address] Test Date: 2024-04-18 Pat Name: Jaylene Mack Department: [facility] Room: Gender: Female Linen Grader: SUSANNAH : 1945 Requested By: Order Number: [id number] Reading MD: Imer Farias MD Measurements Intervals [place] Rate: 102 P: 68 [place]: 164 QRS: -58 QRSD: 108 T: 90 QT: 390 QTc: 508 Interpretive Statements Sinus tachycardia Possible Left atrial enlargement Incomplete right bundle branch block Left anterior fascicular block Left ventricular hypertrophy with repolarization abnormality ( R in aVL , [place] product , Romhilt-Naidu ) Cannot rule out Septal infarct , age undetermined Electronically Signed On 04-19-2024 8:43:06 PST by Imer Farias MD
--- NOTE | 2024-04-18 16:10 | DI.RAD.S_ITS ---
PROCEDURE: XR CHEST 1V INDICATIONS: dyspnea TECHNIQUE: One view of the chest was acquired. COMPARISON: [facility], CR, XR CHEST 1V, 04/19/2023, 13:28. FINDINGS: Surgical changes and devices: None. Lungs and pleura: Lungs are clear. No pleural effusions or pneumothorax. Mediastinum: Mediastinal contours appear normal. Heart size is normal. Bones and chest wall: Moderate S shaped scoliosis of thoracic and lumbar spine is seen. No suspicious bony lesions. Overlying soft tissues appear unremarkable. IMPRESSION: No acute cardiopulmonary pathology. Dictated by: Rey Kevin M.D. on 04/18/2024 at 16:40 Approved by: Rey Kevin M.D. on 04/18/2024 at 16:40
[2024-04-18] MEDS: SODIUM CHLORIDE 0.9% 1,000 ML 1000 ML IV ×2 (16:24→18:53)
[2024-04-18 16:25] LABS: Base Excess VBG -25.5 mmol/L (0-4); HCO3 VBG 5 mmol/L (24-28); Oxygen Saturation VBG 84 % (70-75); PCO2 VBG 21.6 mmHg (45-50); PO2 VBG 74 mmHg (35-45); Total CO2 VBG < 5 mmol/L (24-29); pH VBG 6.97 (7.33-7.43)
[2024-04-18 16:28] LABS: Hematocrit 44.7 % (36-46); Hemoglobin 13.6 g/dL (12.0-16.0); Mean Corpuscular HGB Conc 30.4 % (30-36); Mean Corpuscular Hemoglobin 29.5 PG (26-34); Mean Corpuscular Volume 97.1 fL (80-100); Platelet Count 485 X10^3/uL (150-400); Red Cell Distribution Width 15.2 % (11.6-14.8); White Blood Cell Count 25.2 X10^3/uL (4.5-11.0)
[2024-04-18 16:30] LABS: Add Manual Diff / Slide Review YES
--- NOTE | 2024-04-18 16:38 | PC.NURSE ---
Pt states sick since last Wednesday; EMS states sick x2 days. Last dose of Lantus on Wednesday? Unknown sick contacts. Denies abd pain. Denies n/v now. blood sugar >500
[2024-04-18 16:42] LABS: Neutrophils Absolute Manual 18648 /uL (3000-5900); RBC Morphology Normal Morphology; Total Cells Counted 100
[2024-04-18 16:46] LABS: Alanine Aminotransferase 36 IU/L (<35); Albumin 4.8 g/dL (3.5-5.0); Albumin Globulin Ratio 1.7 (1.0-2.8); Alkaline Phosphatase 144 U/L (38-126); Aspartate Aminotransferase 40 IU/L (14-36); BUN Creatinine Ratio 19.7 (6-22); Bilirubin Total 0.5 mg/dL (0.2-1.3); Blood Urea Nitrogen 30 mg/dL (7-17); Calcium 9.4 mg/dL (8.4-10.2); Chloride 95 mmol/L (98-107); Estimated Glomerular Filt Rate 35 mL/min (>60); Globulin 2.9 g/dL (1.7-4.1); Lipase 221 U/L (23-300); Magnesium 2.2 mg/dL (1.6-2.3); Potassium 4.9 mmol/L (3.4-5.1); Sodium 130 mmol/L (137-145); Total Protein 7.7 g/dL (6.3-8.2)
[2024-04-18 16:51] LABS: HEMOLYSIS 16 (0-50)
[2024-04-18 16:57] LABS: NT-proBNP (BNP-Adult 18+) 248 pg/mL (<450)
[2024-04-18 17:02] LABS: Carbon Dioxide < 5 mmol/L (22-32); Glucose 681 mg/dL (80-110); Procalcitonin 0.512 ng/mL (<0.5)
--- NOTE | 2024-04-18 17:03 | ED.NAVMDI ---
HPI - Nausea/Vomiting/Diarrhea General Chief complaint: Nausea/Vomiting/Diarrhea Stated complaint: Vomiting Time Seen by Provider: 04/18/24 16:07 Source: EMS Mode of arrival: EMS History of Present Illness HPI Narrative: 78-year-old woman with a history of hypertension, prior alcohol use who presents complaining of 2 days of severe vomiting, mild abdominal pain increasing weakness. She was brought in by medics. She notes she has taken her nightly insulin regularly although she did miss Wednesday evening. She is slightly confused somewhat slowed able to cooperate with the exam appears fatigued says she has had a slight cough is unsure if she has been having diarrhea. Does not describe dysuria but notes urinary frequency Related Data Home Medications Medication Instructions Recorded Confirmed multivitamin 1 tab PO DAILY 04/18/23 04/18/24 insulin glargine 100 unit/mL (3 20 unit SUBCUT DAILY 04/18/24 04/18/24 mL) subcutaneous pen (Lantus Solostar U-100 Insulin) Allergies Allergy/AdvReac Type Severity Reaction Status Date / Time No Known Drug Allergies Allergy Verified 04/18/24 16:17 Review of Systems Review of Systems Narrative: Pertinent positive and negative findings as per HPI Patient History Medical History Diabetes Alcohol abuse Hypertension Social History household members: none Smoking Status: Current every day smoker alcohol intake: current Smoking Status: Former smoker alcohol intake frequency: 0-2 drinks per day Alcohol type: wine Exam Initial Vital Signs Initial Vital Signs: Vital Signs Temperature 96.8 F L 04/18/24 15:53 Pulse Rate 100 H 04/18/24 15:53 Respiratory Rate 24 04/18/24 15:53 Blood Pressure 131/61 04/18/24 15:53 Pulse Oximetry 100 04/18/24 15:53 Oxygen Delivery Method Room Air 04/18/24 15:53 General: Frail, cachectic older appearing fatigued but able to cooperate completely with exam HEENT: Dry mucous membranes, normal sclera with reactive pupils, Neck: No JVD Respiratory: Lungs are clear to auscultation, no wheezing no rales no rhonchi. Kussmaul type respiratory pattern Cardiac: Tachycardic, Regular rate and rhythm no murmurs no bruits Abdomen: Soft, nontender, no rebound or guarding Skin: Warm and dry, no rashes Neurologic: Grossly neurologically intact with no obvious asymmetries or abnormalities, slightly slowed cognition and responses Extremities: No trauma, no lower extremity edema Psych: Cooperative, Course Orders Ordered: Acetaminophen (Acetaminophen 325 Mg Tablet) 650 mg PO Q6H PRN PRN Reason: Fever/Mild Pain (1-3) Folic Acid (Folic Acid 1 Mg Tablet) 1 mg PO DAILY TERRANCE Heparin Sodium (Porcine) (Heparin 5,000 Unit/Ml Vial) 5,000 unit SUBCUT BID TERRANCE Last Admin: 04/18/24 21:46 Dose: 5,000 unit Documented By: CT INSULIN DRIP PREMIX (Myxredlin Drip Premix) 100 unit in 100 mls @ 4.808 mls/hr IV TITRATE TERRANCE; Protocol Last Titration: 04/19/24 03:38 Dose: 0.02 unit/kg/hr, 1 mls/hr Documented By: GORDO Co-signed By: RADHA Titration: 04/18/24 22:30 Dose: 0.1 unit/kg/hr, 4.8 mls/hr Documented By: RADHA Co-signed By: Titration: 04/18/24 19:30 Dose: 0.2 unit/kg/hr, 9.6 mls/hr Documented By: RADHA Co-signed By: GORDO Admin: 04/18/24 17:25 Dose: 0.1 unit/kg/hr, 4.808 mls/hr Documented By: MARTINA Co-signed By: [facility] Sodium Chloride (Normal Saline 0.45%) 1,000 mls @ 100 mls/hr IV CONT TERRANCE Last Infusion: 04/19/24 00:39 Dose: Infused Documented By: Infusion: 04/18/24 23:14 Dose: 400 mls/hr Documented By: Infusion: 04/18/24 21:30 Dose: 250 mls/hr Documented By: Admin: 04/18/24 18:54 Dose: 100 mls/hr Documented By: TLS Dextrose (D10w) 100 mls @ 999 mls/hr IV PRN PRN PRN Reason: Hypoglycemia Potassium Chloride/Sodium Chloride (Ns With Kcl 20 Meq) 1,000 mls @ 100 mls/hr IV CONT TERRANCE Last Infusion: 04/19/24 05:26 Dose: Infused Documented By: Admin: 04/19/24 00:14 Dose: 250 mls/hr Documented By: CT Potassium Chloride/Dextrose/Sod Cl (Dextrose 5%-0.45%Ns W/Kcl 20meq) 1,000 mls @ 150 mls/hr IV CONT [facility] Last Infusion: 04/19/24 06:30 Dose: 150 mls/hr Documented By: Admin: 04/19/24 03:59 Dose: 250 mls/hr Documented By: CT Lorazepam (Lorazepam 2 Mg/Ml Inj) 0 mg IV CIWAPRN PRN; Protocol PRN Reason: Alcohol Withdrawal Multivitamins (Multivitamin 1 Tablet) 1 tab PO DAILY TERRANCE Naloxone HCl (Naloxone 0.4 Mg/Ml Vial) 0.2 mg IV Q2MIN PRN PRN Reason: Opiate Reversal Ondansetron HCl (Ondansetron 4 Mg/2 Ml Inj) 4 mg IV Q4HR PRN PRN Reason: Nausea And Vomiting Thiamine HCl (Thiamine 100 Mg Tablet) 100 mg PO DAILY [facility] Stop: 04/22/24 09:01 Discontinued Medications Sodium Chloride (Normal Saline 0.9%) 1,000 mls @ 1,000 mls/hr IV BOLUS ONE Stop: 04/18/24 17:08 Last Infusion: 04/18/24 17:39 Dose: Infused Documented By: Admin: 04/18/24 16:24 Dose: 1,000 mls/hr Documented By: MARTINA Sodium Chloride (Normal Saline 0.9%) 1,000 mls @ 150 mls/hr IV CONT [facility] Last Infusion: 04/18/24 18:55 Dose: 0 mls/hr Documented By: Admin: 04/18/24 17:35 Dose: 150 mls/hr Documented By: MARTINA Sodium Chloride (Normal Saline 0.9%) 1,000 mls @ 1,000 mls/hr IV BOLUS ONE Stop: 04/18/24 18:56 Last Infusion: 04/18/24 19:59 Dose: Infused Documented By: Admin: 04/18/24 18:53 Dose: 1,000 mls/hr Documented By: TLS Ondansetron HCl (Ondansetron 4 Mg/2 Ml Inj) 4 mg IV NOW ONE Stop: 04/18/24 16:10 Last Admin: 04/18/24 16:24 Dose: Not Given Documented By: MARTINA Vital Signs Vital signs: Vital Signs - 8 hr 04/18/24 15:53 Temperature 96.8 F L Pulse Rate 100 H Respiratory Rate 24 Blood Pressure 131/61 Pulse Oximetry 100 Oxygen Delivery Method Room Air MDM - Nausea/Vomiting/Diarrhea Lab Data 04/19/24 06:00 04/19/24 06:00 Labs: Lab Results 04/18/24 04/18/24 04/18/24 Range/Units 16:00 16:18 16:21 WBC 25.2 H (4.5-11.0) X10^3/uL RBC 4.60 (4.0-5.2) X10^6/uL Hgb 13.6 (12.0-16.0) g/dL Hct 44.7 (36-46) % MCV 97.1 (80-100) fL MCH 29.5 (26-34) PG MCHC 30.4 (30-36) % RDW 15.2 H (11.6-14.8) % Plt Count 485 H (150-400) X10^3/uL Neut % (Auto) Not Reportable Lymph % (Auto) Not Reportable [place] % (Auto) Not Reportable Eos % (Auto) Not Reportable Baso % (Auto) Not Reportable Lymph # (Auto) Not Reportable [place] # (Auto) Not Reportable Baso # (Auto) Not Reportable Total Counted 100 Seg Neutrophils % 69.0 (38-70) % Band Neutrophils % 5.0 (3-7) % Lymphocytes % (Manual) 13.0 L (25-45) % Monocytes % (Manual) 7.0 (2-11) % Basophils % (Manual) 2.0 H (0-1) % Metamyelocytes % 4.0 H (-0) % Neutrophils # (Manual) 94909 H (7701-7397) /uL RBC Morphology Normal morphology VBG pH 6.97 L* (7.33-7.43) VBG pCO2 21.6 L (45-50) mmHg VBG pO2 74 H (35-45) mmHg VBG HCO3 5 L (24-28) mmol/L VBG Total CO2 < 5 L (24-29) mmol/L VBG O2 Saturation 84 H (70-75) % VBG Base Excess -25.5 L (0-4) mmol/L Sodium 130 L (137-145) mmol/L Potassium 4.9 (3.4-5.1) mmol/L Chloride 95 L (98-107) mmol/L Carbon Dioxide < 5 L* (22-32) mmol/L BUN 30 H (7-17) mg/dL Creatinine 1.52 H (0.52-1.04) mg/dL Estimated GFR 35 L (>60) mL/min BUN/Creatinine Ratio 19.7 (6-22) Glucose 681 H* (80-110) mg/dL Calcium 9.4 (8.4-10.2) mg/dL Magnesium 2.2 (1.6-2.3) mg/dL Total Bilirubin 0.5 (0.2-1.3) mg/dL AST 40 H (14-36) IU/L ALT 36 H (<35) IU/L Alkaline Phosphatase 144 H (38-126) U/L Troponin I 0.020 (0.01-0.034) ng/mL NT-Pro-B Natriuret Pep 248 (<450) pg/mL Total Protein 7.7 (6.3-8.2) g/dL Albumin 4.8 (3.5-5.0) g/dL Globulin 2.9 (1.7-4.1) g/dL Albumin/Globulin Ratio 1.7 (1.0-2.8) Lipase 221 (23-300) U/L Procalcitonin 0.512 H (<0.5) ng/mL Urine Color Urine Appearance Urine pH (4.5-8.0) Ur Specific [place] (1.000-1.035) Urine Protein (Negative) Urine Glucose (UA) (Negative) g/dL Urine Ketones (NEGATIVE) Urine Occult Blood (Negative) Urine Nitrate (Negative) Urine Bilirubin (NEGATIVE) Urine Urobilinogen (0.2) E.U./dL Ur Leukocyte Esterase (NEGATIVE) Urine RBC (0-5/HPF) Urine WBC (0-5/HPF) Ur Squamous Epith Cells (0-5/HPF) Urine Bacteria (None) Ur Culture Indicated? Vol Urine Centrifuged Ethyl Alcohol < 10 ( - 10) mg/dL Ketones 12.5 H (<0.27) mmol/L 04/18/24 Range/Units 17:17 WBC (4.5-11.0) X10^3/uL RBC (4.0-5.2) X10^6/uL Hgb (12.0-16.0) g/dL Hct (36-46) % MCV (80-100) fL MCH (26-34) PG MCHC (30-36) % RDW (11.6-14.8) % Plt Count (150-400) X10^3/uL Neut % (Auto) Lymph % (Auto) Milam % (Auto) Eos % (Auto) Baso % (Auto) Lymph # (Auto) [place] # (Auto) Baso # (Auto) Total Counted Seg Neutrophils % (38-70) % Band Neutrophils % (3-7) % Lymphocytes % (Manual) (25-45) % Monocytes % (Manual) (2-11) % Basophils % (Manual) (0-1) % Metamyelocytes % (-0) % Neutrophils # (Manual) (2117-6866) /uL RBC Morphology VBG pH (7.33-7.43) VBG pCO2 (45-50) mmHg VBG pO2 (35-45) mmHg VBG HCO3 (24-28) mmol/L VBG Total CO2 (24-29) mmol/L VBG O2 Saturation (70-75) % VBG Base Excess (0-4) mmol/L Sodium (137-145) mmol/L Potassium (3.4-5.1) mmol/L Chloride (98-107) mmol/L Carbon Dioxide (22-32) mmol/L BUN (7-17) mg/dL Creatinine (0.52-1.04) mg/dL Estimated GFR (>60) mL/min BUN/Creatinine Ratio (6-22) Glucose (80-110) mg/dL Calcium (8.4-10.2) mg/dL Magnesium (1.6-2.3) mg/dL Total Bilirubin (0.2-1.3) mg/dL AST (14-36) IU/L ALT (<35) IU/L Alkaline Phosphatase (38-126) U/L Troponin I (0.01-0.034) ng/mL NT-Pro-B Natriuret Pep (<450) pg/mL Total Protein (6.3-8.2) g/dL Albumin (3.5-5.0) g/dL Globulin (1.7-4.1) g/dL Albumin/Globulin Ratio (1.0-2.8) Lipase (23-300) U/L Procalcitonin (<0.5) ng/mL Urine Color Yellow Urine Appearance Clear Urine pH 5.5 (4.5-8.0) Ur Specific [place] 1.025 (1.000-1.035) Urine Protein Trace H (Negative) Urine Glucose (UA) 3+ H (Negative) g/dL Urine Ketones 3+ H (NEGATIVE) Urine Occult Blood 1+ H (Negative) Urine Nitrate Negative (Negative) Urine Bilirubin Negative (NEGATIVE) Urine Urobilinogen 0.2 (0.2) E.U./dL Ur Leukocyte Esterase Negative (NEGATIVE) Urine RBC 1-5/hpf (0-5/HPF) Urine WBC 1-5/hpf (0-5/HPF) Ur Squamous Epith Cells 1-5 /hpf (0-5/HPF) Urine Bacteria Moderate (10-30) H (None) Ur Culture Indicated? Cult not indicated Vol Urine Centrifuged 10ml (spun) Ethyl Alcohol ( - 10) mg/dL Ketones (<0.27) mmol/L Point of Care Testing Glucose POC 500 MDM Narrative Medical decision making narrative: CC: Severe vomiting 48 hours, tachypnea Complicating co-morbidities: Diabetes on Lantus admitted for DKA April of 2023 Data collected from: patient, medics Medical records reviewed: Admission almost a year ago for newly diagnosed diabetes and DKA Differential considered: DKA, acute renal failure, viral syndrome, severe dehydration Exam documented above, pertinent findings include: Pale, Kussmaul breathing, ketones noted on breath, Lab Test results independently reviewed as above. Pertinent findings: CBC shows significant leukocytosis at 25.2 without left shift. Mild thrombocytosis with platelets of 485. Suspect that this is more demargination than infection at this time Chemistries are notable for potassium of 4.9, creatinine 1.52 which gives her a GFR of 35. Glucose elevated at 681, sodium corrects to normal given the hyperglycemia. Bicarb of less than 5. Elevated AST, ALT alk-phos with normal bilirubin Troponin is undetected BNP is not elevated Lipase is normal Anion gap of 30 Venous blood gas has pH of 6.97, CO2 of 21.6, bicarb of less than 5 Independently reviewed EKG: Sinus tachycardic at a rate of 102, no acute ischemic changes Imaging studies independently reviewed: Chest x-ray is unremarkable Treatments: Fluids, Zofran, insulin drip is initiated Discussion: 78-year-old woman with DKA, pH of 6.97, positive ketones, anion gap of 30, clinical presentation consistent with DKA. No evidence of acute infection based on clinical exam, no significant abdominal pain, no cough lungs are clear. She is started on fluids DKA protocol and we will be admitted to the hospitalist service Critical Care Time Critical Care Time Critical Care Time: Yes Total Critical Care Time: 33 Attestation: Critical care time is separate from other billable procedures. There is a high probability of a significant, sudden or life-threatening deterioration that requires my full and direct attention, intervention and personal management. This critical care time includes consultation with family and other consulting doctors, review of records, and interpretation of data from labs, EKGs and imaging as well as managements of acute DKA with IV insulin treatment Discharge Plan Departure Patient Disposition: Admitted As Inpatient Clinical Impression: DKA (diabetic ketoacidosis) Qualifiers: Diabetes mellitus complication detail: without coma Admit Date/Time: 04/18/24 17:29 Admit Provider: Evonne Rodas
[2024-04-18] MEDS: INSULIN DRIP PREMIX 100 UNIT/100 ML PLAST..BAG IV (17:25)
[2024-04-18 17:35] LABS: Appearance Urine UA CLEAR; Bilirubin Urine UA NEGATIVE (NEGATIVE); Color Urine UA YELLOW; Glucose Urine UA 3+ g/dL (Negative); Ketones Urine UA 3+ (NEGATIVE); Leukocyte Esterase Urine UA NEGATIVE (NEGATIVE); Nitrite Urine UA NEGATIVE (Negative); Occult Blood Urine UA 1+ (Negative); Protein Urine UA TRACE (Negative); Specific Gravity Urine UA 1.025 (1.000-1.035); Urobilinogen Urine UA 0.2 E.U./dL (0.2); pH Urine UA 5.5 (4.5-8.0)
[2024-04-18] MEDS: SODIUM CHLORIDE 0.9% 1,000 ML 150 ML IV (17:35)
[2024-04-18 17:46] LABS: RBC Urine 1-5/HPF (0-5/HPF); Urine Volume 10mL (spun); WBC Urine 1-5/HPF (0-5/HPF)
[2024-04-18 17:47] LABS: Bacteria Urine Moderate (10-30); Culture Indicated Urine Cult Not Indicated; Squamous Epithelial Cell Urine 1-5 /HPF (0-5/HPF)
[2024-04-18 17:56] LABS: Ethanol (ETOH) < 10 mg/dL
[2024-04-18 17:57] LABS: Ketones (Beta-Hydroxybutyrate) 12.5 mmol/L (<0.27)
--- NOTE | 2024-04-18 18:01 | P.HP_ITS ---
History of Present Illness History of Present Illness Date Patient Seen: 04/18/24 Time Patient Seen: 18:26 Chief complaint: Vomiting Narrative: The patient is a 78-year-old female who presents with DKA. She was accompanied by a son and [id number]. 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 The patient lives alone in [place], she presents tonight with DKA in the severe leukocytosis. She was afebrile. She was on a fairly simple regimen of Lantus only at home, her PCP is Dr. Jalloh. The patient was somewhat resistant to self-care with regards to her diabetes. She was not really provide any history tonight because she was relatively lethargic. Her family does state that she drinks too much alcohol, possibly a half a bottle a day. They do not really know of any specific episodes of withdrawal. They also believe that she has been skipping insulin and probably not checking her blood sugars at home. They had considered a continuous blood glucose monitor, however the patient had no interested in this. The patient denies any pain, recent URI symptoms including rhinorrhea, cough or shortness a breath. She also denies any diarrhea, or abdominal pain. There is also no report of chest pain. The patient engages minimally and does not offer any additional details. The patient is proxy decision makers are son and [id number], they do attest that she was do not resuscitate. [facility] Medical History Diabetes Alcohol abuse Hypertension Social History household members: none Smoking Status: Former smoker alcohol intake: former Meds Home Medications and Allergies Home Medications Medication Instructions Recorded Confirmed Type multivitamin 1 tab PO DAILY 04/18/23 04/18/23 History insulin glargine 100 unit/mL (3 10 unit (0.1 mL) SUBCUT DAILY #15 04/20/23 Rx mL) subcutaneous pen (Lantus mL Solostar U-100 Insulin) Allergies Allergy/AdvReac Type Severity Reaction Status Date / Time No Known Drug Allergies Allergy Verified 04/18/24 16:17 Review of Systems Review of Systems Narrative: ROS is otherwise difficult to obtain due to her lethargy and lack of participation. She does live alone and her family last was in contact with her at the end of March. Exam Vital Signs (past 8 hours): - 04/18/24 15:53 04/18/24 16:10 04/18/24 16:10 Temperature 96.8 F L Pulse Rate 100 H 100 H Respiratory Rate 24 Blood Pressure 131/61 131/61 Pulse Oximetry 100 98 Oxygen Delivery Method Room Air 04/18/24 16:30 04/18/24 16:30 04/18/24 16:45 Temperature Pulse Rate 100 H Respiratory Rate 18 Blood Pressure 134/60 127/60 Pulse Oximetry 99 Oxygen Delivery Method 04/18/24 16:45 04/18/24 17:00 04/18/24 17:00 Temperature Pulse Rate 99 H 97 H Respiratory Rate 20 21 Blood Pressure 120/59 L Pulse Oximetry 97 99 Oxygen Delivery Method Oxygen Delivery Method Room Air Narrative Exam Narrative: NAD, somnolent, lethargic, disengaged. She does not appear to be confused when she does not answer questions. She was underweight, and appears to be volume depleted. Normocephalic skull, EOMI, anicteric sclera, symmetric pupils. Oropharynx unremarkable, no droop. Neck supple, midline trachea, no adenopathy. Lungs clear, normal rate and effort. Heart regular, no murmur gallop or rub. Abdomen is soft, non distended and non tender. Extremities are free of edema. Skin is free of rash or lesions. Joints are not swollen or deformed. She can move arms and legs when asked to. Objective ECG Impression: Sinus tachycardia Possible Left atrial enlargement Incomplete right bundle branch block Left anterior fascicular block Left ventricular hypertrophy with repolarization abnormality ( R in aVL , [place] product , Romhilt-Naidu ) Cannot rule out Septal infarct , age undetermined Imaging CXR:: My impression: No infiltrates, she does have significant scoliosis. Radiologist's impression: No acute abnormalities. Labs 04/18/24 16:00 04/18/24 16:00 Labs: Laboratory Results - last 24 hr 04/18/24 04/18/24 04/18/24 16:00 16:21 17:17 WBC 25.2 H RBC 4.60 Hgb 13.6 Hct 44.7 MCV 97.1 MCH 29.5 MCHC 30.4 RDW 15.2 H Plt Count 485 H Neut % (Auto) Not Reportable Lymph % (Auto) Not Reportable [place] % (Auto) Not Reportable Eos % (Auto) Not Reportable Baso % (Auto) Not Reportable Lymph # (Auto) Not Reportable [place] # (Auto) Not Reportable Baso # (Auto) Not Reportable Total Counted 100 Seg Neutrophils % 69.0 Band Neutrophils % 5.0 Lymphocytes % (Manual) 13.0 L Monocytes % (Manual) 7.0 Basophils % (Manual) 2.0 H Metamyelocytes % 4.0 H Neutrophils # (Manual) 46273 H RBC Morphology Normal morphology VBG pH 6.97 L* VBG pCO2 21.6 L VBG pO2 74 H VBG HCO3 5 L VBG Total CO2 < 5 L VBG O2 Saturation 84 H VBG Base Excess -25.5 L Sodium 130 L Potassium 4.9 Chloride 95 L Carbon Dioxide < 5 L* BUN 30 H Creatinine 1.52 H Estimated GFR 35 L BUN/Creatinine Ratio 19.7 Glucose 681 H* Calcium 9.4 Magnesium 2.2 Total Bilirubin 0.5 AST 40 H ALT 36 H Alkaline Phosphatase 144 H Troponin I 0.020 NT-Pro-B Natriuret Pep 248 Total Protein 7.7 Albumin 4.8 Globulin 2.9 Albumin/Globulin Ratio 1.7 Lipase 221 Procalcitonin 0.512 H Urine Color Yellow Urine Appearance Clear Urine pH 5.5 Ur Specific [place] 1.025 Urine Protein Trace H Urine Glucose (UA) 3+ H Urine Ketones 3+ H Urine Occult Blood 1+ H Urine Nitrate Negative Urine Bilirubin Negative Urine Urobilinogen 0.2 Ur Leukocyte Esterase Negative Urine RBC 1-5/hpf Urine WBC 1-5/hpf Ur Squamous Epith Cells 1-5 /hpf Urine Bacteria Moderate (10-30) H Ur Culture Indicated? Cult not indicated Vol Urine Centrifuged 10ml (spun) Assessment & Plan Assessment & Plan narrative: 1. DKA, present on admission and active. Probable dietary and medication noncompliance. 2. Hypovolemic hyponatremia, present on admission and active. 3. Acute kidney injury secondary to volume depletion, present on admission and active. 4. Alcohol abuse, present on admission and active. Unclear if she was at risk for withdrawal. 5. Significant leukocytosis without clinical evidence of infection, present on admission and active. 6. Metabolic encephalopathy, present on admission and active. Plan: -we will treat DKA with the DKA protocol including insulin drip, electrolyte surveillance and repletion, and IV fluids. -we will monitor sodium. -we will monitor renal function with fluids. -[facility] protocol for potential alcohol withdrawal. -monitor leukocytosis, if still abnormal in the morning would recommend blood cultures in his CT scan of the abdomen and pelvis. She was DNR, this is confirmed with her family today. Her son and [id number] are proxy decision makers. Her son is a ever a electrical maintenance technician, daughter in-law is a hospice nurse. Time-Based Coding :: 45 critical care time spent with patient and on the chart (including review of chart, obtaining history, exam, reviewing outside data, placing orders, documenting exam and treatment plan, and counseling patient) on 04/18. Quality MIPS - Admit I confirm the patient?s Advance Care Plan is present, Code status is documented, Surrogate decision maker is in patient?s record [If Yes, STOP here]: Yes MIPS - Meds 'Current medications' to include all prescriptions, [id number] products, herbals, cannabis/cannabidiol products, and vitamin/mineral/dietary (nutritional) supplements. I have utilized all available resources to obtain, update, or review the patient?s current medications. [If Yes, STOP here]: Yes
[2024-04-18] MEDS: SODIUM CHLORIDE 0.45% 1,000 ML 100 ML IV (18:54)
[2024-04-18 19:01] LABS: BUN Creatinine Ratio 21.7 (6-22); Blood Urea Nitrogen 30 mg/dL (7-17); Calcium 8.8 mg/dL (8.4-10.2); Chloride 102 mmol/L (98-107); Estimated Glomerular Filt Rate 39 mL/min (>60); HEMOLYSIS < 15 (0-50); Lactate (Lactic Acid) 2.5 mmol/L (0.7-2.1); Potassium 4.7 mmol/L (3.4-5.1); Sodium 133 mmol/L (137-145)
[2024-04-18 19:12] LABS: Carbon Dioxide < 5 mmol/L (22-32)
[2024-04-18 19:13] LABS: Glucose 606 mg/dL (80-110)
--- NOTE | 2024-04-18 19:25 | PC.NURSE ---
Admit Note Patient arrived to room 228 at 1850, transferred to bed, pt able to move self across to bed. Alert and oriented to self and place but is a scattered historian. Insulin gtt infusing per protocol, 1L NS bolus started and IVF at 100 ml/hr. Oriented to room and to call light/bed/tv controls. Call light within reach and bed alarm on for safety. Glasses at bedside, clothing in room. Denies pain.
[2024-04-18 20:15] LABS: MRSA (Nasal) PCR NOT DETECTED (Not Detect)
[2024-04-18 20:23] LABS: Reflexed Lactate in 2 Hours Y
[2024-04-18] MEDS: HEPARIN 5,000 UNIT/ML VIAL 5000 UNIT SUBCUT (21:46)
[2024-04-18 22:50] LABS: Lactate 2HR (Lactic Acid Rflx) 1.4 mmol/L (0.7-2.1)
[2024-04-18 22:51] LABS: BUN Creatinine Ratio 31.5 (6-22); Blood Urea Nitrogen 29 mg/dL (7-17); Calcium 8.7 mg/dL (8.4-10.2); Carbon Dioxide 10 mmol/L (22-32); Chloride 107 mmol/L (98-107); Estimated Glomerular Filt Rate > 60 mL/min (>60); Glucose 324 mg/dL (80-110); HEMOLYSIS < 15 (0-50); Potassium 3.5 mmol/L (3.4-5.1); Sodium 131 mmol/L (137-145)
[2024-04-18 23:14] LABS: Acinetobacter calcoa-baumannii Not Detected (Not Detect); Bacteroides fragilis Not Detected (Not Detect); Candida albicans Not Detected (Not Detect); Candida auris Not Detected (Not Detect); Candida glabrata Not Detected (Not Detect); Candida krusei Not Detected (Not Detect); Candida parapsilosis Not Detected (Not Detect); Candida tropicalis Not Detected (Not Detect); Cryptococcus neoformans/gatti Not Detected (Not Detect); Enterobacter cloacae complex Not Detected (Not Detect); Enterobacterales Not Detected (Not Detect); Enterococcus faecalis Not Detected (Not Detect); Enterococcus faecium Not Detected (Not Detect); Haemophilus influenzae Not Detected (Not Detect); Klebsiella aerogenes Not Detected (Not Detect); Listeria monocytogenes Not Detected (Not Detect); Neisseria meningitidis Not Detected (Not Detect); Proteus species Not Detected (Not Detect); Pseudomonas aeruginosa Not Detected (Not Detect); Salmonella species Not Detected (Not Detect); Serratia marcescens Not Detected (Not Detect); Staphylococcus epidermidis Not Detected (Not Detect); Staphylococcus lugdunensis Not Detected (Not Detect); Staphylococcus species Not Detected (Not Detect); Stenotrophomonas maltophilia Not Detected (Not Detect); Streptococcus agalactiae (Gr B Not Detected (Not Detect); Streptococcus pneumonia Not Detected (Not Detect); Streptococcus pyogenes (Gr A) Not Detected (Not Detect); Streptococcus species Not Detected (Not Detect)
[2024-04-18 23:18] LABS: Add Manual Diff / Slide Review NO; Basophils Absolute Auto 100 /uL (0-100); Basophils Percent Auto 0.5 % (0-2); Eosinophils Absolute Auto 0 /uL (0-450); Hematocrit 35.2 % (36-46); Hemoglobin 11.5 g/dL (12.0-16.0); Lymphocytes Absolute Auto 4100 /uL (1100-4500); Lymphocytes Percent Auto 18.6 % (25-40); Mean Corpuscular HGB Conc 32.8 % (30-36); Mean Corpuscular Hemoglobin 29.2 PG (26-34); Monocytes Absolute Auto 2300 /uL (0-900); Monocytes Percent Auto 10.5 % (3-14); Neutrophils Absolute Auto 15300 /uL (1500-7000); Neutrophils Percent Auto 70.4 % (50-75); Platelet Count 350 X10^3/uL (150-400); Red Blood Cell Count 3.95 X10^6/uL (4.0-5.2); White Blood Cell Count 21.8 X10^3/uL (4.5-11.0)
[2024-04-19] VITALS (51 sets, daily range): BP systolic 95–140; BP diastolic 51–76; PULSE 77–101; RESP 10–35; TEMP 36.2–37.1; O2SAT 92–98
[2024-04-19] MEDS: KCL 20 MEQ IN NS 1,000 ML 250 MEQ IV (00:14)
[2024-04-19 02:21] LABS: BUN Creatinine Ratio 36.4 (6-22); Blood Urea Nitrogen 28 mg/dL (7-17); Calcium 8.8 mg/dL (8.4-10.2); Carbon Dioxide 16 mmol/L (22-32); Chloride 109 mmol/L (98-107); Estimated Glomerular Filt Rate > 60 mL/min (>60); Glucose 193 mg/dL (80-110); HEMOLYSIS < 15 (0-50); Potassium 3.9 mmol/L (3.4-5.1); Sodium 131 mmol/L (137-145)
[2024-04-19] MEDS: DEXTROSE 5%-0.45NS W/KCL 20MEQ 1,000 ML 250 MEQ IV (03:59)
[2024-04-19 06:17] LABS: Add Manual Diff / Slide Review NO; Basophils Absolute Auto 200 /uL (0-100); Basophils Percent Auto 0.9 % (0-2); Eosinophils Absolute Auto 0 /uL (0-450); Hematocrit 35.5 % (36-46); Lymphocytes Absolute Auto 2300 /uL (1100-4500); Lymphocytes Percent Auto 12.9 % (25-40); Mean Corpuscular HGB Conc 33.9 % (30-36); Mean Corpuscular Hemoglobin 29.7 PG (26-34); Mean Corpuscular Volume 87.7 fL (80-100); Monocytes Absolute Auto 2300 /uL (0-900); Monocytes Percent Auto 12.5 % (3-14); Neutrophils Absolute Auto 13300 /uL (1500-7000); Neutrophils Percent Auto 73.7 % (50-75); Platelet Count 352 X10^3/uL (150-400); Red Blood Cell Count 4.05 X10^6/uL (4.0-5.2); Red Cell Distribution Width 14.2 % (11.6-14.8)
[2024-04-19 06:29] LABS: BUN Creatinine Ratio 33.8 (6-22); Blood Urea Nitrogen 26 mg/dL (7-17); Calcium 8.8 mg/dL (8.4-10.2); Carbon Dioxide 17 mmol/L (22-32); Chloride 110 mmol/L (98-107); Estimated Glomerular Filt Rate > 60 mL/min (>60); Glucose 181 mg/dL (80-110); HEMOLYSIS < 15 (0-50); Potassium 4.3 mmol/L (3.4-5.1); Sodium 132 mmol/L (137-145)
[2024-04-19 06:36] LABS: Hemoglobin A1C% w Est Avg Glu 11.2 % (4.0-6.0)
--- NOTE | 2024-04-19 07:34 | PC.NURSE ---
Roentgenologist Note-Patient slept, no c/o nausea or discomfort. DKA protocol followed, BG decreased slowly to goal range-see flow sheet. Anion gap closed. VSS.
--- NOTE | 2024-04-19 07:50 | P.PN_ITS ---
Subjective Subjective Date Patient Seen: 04/19/24 Interval history: She is seen today to follow-up her diabetic ketoacidosis, metabolic encephalopathy and history of alcohol use. This morning while resting in bed she began experiencing lower substernal chest aching. She says she has no history of acid reflux. She has no history of angina. Maalox was given with some relief. Her anion gap has closed and her most recent blood sugar is 174. The potassium is 4.3 with sodium of 132. The white blood count is 18.0. The insulin drip and potassium supplementation will be stopped and she will be transitioned back to her diabetic diet, Lantus and correctional insulin scale. Her A1c was quite high at 11.2. Exam Vital Signs (past 8 hours): - 04/19/24 00:00 04/19/24 00:00 04/19/24 00:00 Temperature Pulse Rate 101 H Respiratory Rate 28 H Blood Pressure 110/56 L Pulse Oximetry 97 Oxygen Delivery Method Room Air 04/19/24 00:30 04/19/24 00:30 04/19/24 01:00 Temperature 98.4 F Pulse Rate 92 H 89 Respiratory Rate 25 H 20 Blood Pressure 101/57 L Pulse Oximetry 98 97 Oxygen Delivery Method 04/19/24 01:00 04/19/24 01:30 04/19/24 01:30 Temperature Pulse Rate 93 H Respiratory Rate 26 H Blood Pressure 97/52 L 104/59 L Pulse Oximetry 97 Oxygen Delivery Method 04/19/24 02:00 04/19/24 02:00 04/19/24 02:30 Temperature Pulse Rate 90 86 Respiratory Rate 24 22 Blood Pressure 95/53 L Pulse Oximetry 96 98 Oxygen Delivery Method 04/19/24 02:30 04/19/24 03:00 04/19/24 03:00 Temperature Pulse Rate 88 Respiratory Rate 23 Blood Pressure 95/51 L 98/53 L Pulse Oximetry 97 Oxygen Delivery Method 04/19/24 03:30 04/19/24 03:30 04/19/24 04:00 Temperature Pulse Rate 87 Respiratory Rate 23 Blood Pressure 98/56 L Pulse Oximetry 96 Oxygen Delivery Method Room Air 04/19/24 04:00 04/19/24 04:00 04/19/24 04:30 Temperature Pulse Rate 87 85 Respiratory Rate 24 23 Blood Pressure 101/55 L Pulse Oximetry Oxygen Delivery Method 04/19/24 04:30 04/19/24 05:00 04/19/24 05:00 Temperature Pulse Rate 84 Respiratory Rate 21 Blood Pressure 105/55 L 107/58 L Pulse Oximetry Oxygen Delivery Method 04/19/24 05:30 04/19/24 05:30 04/19/24 06:00 Temperature 97.2 F L Pulse Rate 85 82 Respiratory Rate 25 H 22 Blood Pressure 106/55 L Pulse Oximetry Oxygen Delivery Method 04/19/24 06:00 04/19/24 06:30 04/19/24 06:30 Temperature Pulse Rate 83 Respiratory Rate 23 Blood Pressure 111/58 L 114/59 L Pulse Oximetry Oxygen Delivery Method 04/19/24 07:00 04/19/24 07:00 04/19/24 07:30 Temperature Pulse Rate 85 Respiratory Rate 25 H Blood Pressure 116/59 L 115/60 Pulse Oximetry Oxygen Delivery Method 04/19/24 07:30 Temperature Pulse Rate 80 Respiratory Rate 25 H Blood Pressure Pulse Oximetry Oxygen Delivery Method Oxygen Delivery Method Room Air Oxygen Flow Rate 0 Narrative Exam Narrative: She is alert and oriented x3. She is in mild distress from substernal chest aching. Heart is regular rate and rhythm without murmur Lungs are clear to auscultation bilaterally Abdomen is soft, bowel sounds positive, nontender, no organomegaly Extremities have no ankle edema. Objective Labs 04/19/24 06:00 04/19/24 06:00 Labs: Laboratory Results - last 24 hr 04/18/24 04/18/24 04/18/24 16:00 16:18 16:21 WBC 25.2 H RBC 4.60 Hgb 13.6 Hct 44.7 MCV 97.1 MCH 29.5 MCHC 30.4 RDW 15.2 H Plt Count 485 H Neut % (Auto) Not Reportable Lymph % (Auto) Not Reportable [place] % (Auto) Not Reportable Eos % (Auto) Not Reportable Baso % (Auto) Not Reportable Neut # (Auto) Lymph # (Auto) Not Reportable [place] # (Auto) Not Reportable Eos # (Auto) Baso # (Auto) Not Reportable Total Counted 100 Seg Neutrophils % 69.0 Band Neutrophils % 5.0 Lymphocytes % (Manual) 13.0 L Monocytes % (Manual) 7.0 Basophils % (Manual) 2.0 H Metamyelocytes % 4.0 H Neutrophils # (Manual) 10072 H RBC Morphology Normal morphology VBG pH 6.97 L* VBG pCO2 21.6 L VBG pO2 74 H VBG HCO3 5 L VBG Total CO2 < 5 L VBG O2 Saturation 84 H VBG Base Excess -25.5 L Sodium 130 L Potassium 4.9 Chloride 95 L Carbon Dioxide < 5 L* BUN 30 H Creatinine 1.52 H Estimated GFR 35 L BUN/Creatinine Ratio 19.7 Glucose 681 H* Hemoglobin A1c Lactate Calcium 9.4 Magnesium 2.2 Total Bilirubin 0.5 AST 40 H ALT 36 H Alkaline Phosphatase 144 H Troponin I 0.020 NT-Pro-B Natriuret Pep 248 Total Protein 7.7 Albumin 4.8 Globulin 2.9 Albumin/Globulin Ratio 1.7 Lipase 221 Procalcitonin 0.512 H Urine Color Urine Appearance Urine pH Ur Specific [place] Urine Protein Urine Glucose (UA) Urine Ketones Urine Occult Blood Urine Nitrate Urine Bilirubin Urine Urobilinogen Ur Leukocyte Esterase Urine RBC Urine WBC Ur Squamous Epith Cells Urine Bacteria Ur Culture Indicated? Vol Urine Centrifuged Nasal Screen MRSA (PCR) Ethyl Alcohol < 10 Ketones 12.5 H A.calcoaceticus-baumannii cmplx PCR Bacteroides fragilis Jessica albicans (PCR) Jessica auris (PCR) C. glabrata (PCR) C. krusei (PCR) C. parapsilosis (PCR) C. tropicalis (PCR) C. neoform/gattii (PCR) Enterobacterales (PCR) E. cloacae complex PCR Enterococc faecalis PCR Enterococc faecium PCR E. coli (PCR) H. influenzae (PCR) Klebsiella aerogenes (PCR) Klebsiella oxytoca PCR Klebsiella pneumoniae List. monocytogenes PCR N. meningitidis (PCR) Proteus species (PCR) Salmonella spp. (PCR) Serratia marcescens PCR Staphylococcus sp PCR Staph aureus (PCR) mecA/C & MREJ Resist Gene mecA/C-Methicil Resis Gene mcr-1 Colistin Res Gene PCR Staph epidermidis (PCR) Staph lugdunensis PCR S. maltophilia (PCR) Streptococcus sp PCR Group A Strep (PCR) Strep agalactiae (PCR) Strep pneumoniae (PCR) P. aeruginosa (PCR) Jose L/B-Vanco Res Genes blaIMP Car res Gene PCR KPC-Carbap Res Gene PCR blaNDM Car Res Gene PCR OXA-48 Carbapenem Resis Gene (PCR) blaVIM Car Res Gene PCR CTX-M Gene Resistance (PCR) 04/18/24 04/18/24 04/18/24 17:17 18:40 18:50 WBC RBC Hgb Hct MCV MCH MCHC RDW Plt Count Neut % (Auto) Lymph % (Auto) [place] % (Auto) Eos % (Auto) Baso % (Auto) Neut # (Auto) Lymph # (Auto) [place] # (Auto) Eos # (Auto) Baso # (Auto) Total Counted Seg Neutrophils % Band Neutrophils % Lymphocytes % (Manual) Monocytes % (Manual) Basophils % (Manual) Metamyelocytes % Neutrophils # (Manual) RBC Morphology VBG pH VBG pCO2 VBG pO2 VBG HCO3 VBG Total CO2 VBG O2 Saturation VBG Base Excess Sodium 133 L Potassium 4.7 Chloride 102 Carbon Dioxide < 5 L* BUN 30 H Creatinine 1.38 H Estimated GFR 39 L BUN/Creatinine Ratio 21.7 Glucose 606 H* Hemoglobin A1c Lactate 2.5 H Calcium 8.8 Magnesium Total Bilirubin AST ALT Alkaline Phosphatase Troponin I NT-Pro-B Natriuret Pep Total Protein Albumin Globulin Albumin/Globulin Ratio Lipase Procalcitonin Urine Color Yellow Urine Appearance Clear Urine pH 5.5 Ur Specific [place] 1.025 Urine Protein Trace H Urine Glucose (UA) 3+ H Urine Ketones 3+ H Urine Occult Blood 1+ H Urine Nitrate Negative Urine Bilirubin Negative Urine Urobilinogen 0.2 Ur Leukocyte Esterase Negative Urine RBC 1-5/hpf Urine WBC 1-5/hpf Ur Squamous Epith Cells 1-5 /hpf Urine Bacteria Moderate (10-30) H Ur Culture Indicated? Cult not indicated Vol Urine Centrifuged 10ml (spun) Nasal Screen MRSA (PCR) Not detected Ethyl Alcohol Ketones A.calcoaceticus-baumannii cmplx PCR Not detected Bacteroides fragilis Not detected Jessica albicans (PCR) Not detected Jessica auris (PCR) Not detected C. glabrata (PCR) Not detected C. krusei (PCR) Not detected C. parapsilosis (PCR) Not detected C. tropicalis (PCR) Not detected C. neoform/gattii (PCR) Not detected Enterobacterales (PCR) Not detected E. cloacae complex PCR Not detected Enterococc faecalis PCR Not detected Enterococc faecium PCR Not detected E. coli (PCR) Not detected H. influenzae (PCR) Not detected Klebsiella aerogenes (PCR) Not detected Klebsiella oxytoca PCR Not detected Klebsiella pneumoniae Not detected List. monocytogenes PCR Not detected N. meningitidis (PCR) Not detected Proteus species (PCR) Not detected Salmonella spp. (PCR) Not detected Serratia marcescens PCR Not detected Staphylococcus sp PCR Not detected Staph aureus (PCR) Not detected mecA/C & MREJ Resist Gene Not applicable mecA/C-Methicil Resis Gene Not applicable mcr-1 Colistin Res Gene PCR Not applicable Staph epidermidis (PCR) Not detected Staph lugdunensis PCR Not detected S. maltophilia (PCR) Not detected Streptococcus sp PCR Not detected Group A Strep (PCR) Not detected Strep agalactiae (PCR) Not detected Strep pneumoniae (PCR) Not detected P. aeruginosa (PCR) Not detected Jose L/B-Vanco Res Genes Not applicable blaIMP Car res Gene PCR Not applicable KPC-Carbap Res Gene PCR Not applicable blaNDM Car Res Gene PCR Not applicable OXA-48 Carbapenem Resis Gene (PCR) Not applicable blaVIM Car Res Gene PCR Not applicable CTX-M Gene Resistance (PCR) Not applicable 04/18/24 04/19/24 04/19/24 22:31 01:59 06:00 WBC 21.8 H 18.0 H RBC 3.95 L 4.05 Hgb 11.5 L 12.0 Hct 35.2 L 35.5 L MCV 89.0 D 87.7 MCH 29.2 29.7 MCHC 32.8 33.9 RDW 14.0 14.2 Plt Count 350 352 Neut % (Auto) 70.4 73.7 Lymph % (Auto) 18.6 L 12.9 L [place] % (Auto) 10.5 12.5 Eos % (Auto) 0.0 L 0.0 L Baso % (Auto) 0.5 0.9 Neut # (Auto) 32230 H 29168 H Lymph # (Auto) 4100 2300 [place] # (Auto) 2300 H 2300 H Eos # (Auto) 0 0 Baso # (Auto) 100 200 H Total Counted Seg Neutrophils % Band Neutrophils % Lymphocytes % (Manual) Monocytes % (Manual) Basophils % (Manual) Metamyelocytes % Neutrophils # (Manual) RBC Morphology VBG pH VBG pCO2 VBG pO2 VBG HCO3 VBG Total CO2 VBG O2 Saturation VBG Base Excess Sodium 131 L 131 L 132 L Potassium 3.5 D 3.9 4.3 Chloride 107 109 H 110 H Carbon Dioxide 10 L 16 L 17 L BUN 29 H 28 H 26 H Creatinine 0.92 0.77 0.77 Estimated GFR > 60 > 60 > 60 BUN/Creatinine Ratio 31.5 H 36.4 H 33.8 H Glucose 324 H D 193 H D 181 H Hemoglobin A1c 11.2 H Lactate 1.4 Calcium 8.7 8.8 8.8 Magnesium Total Bilirubin AST ALT Alkaline Phosphatase Troponin I NT-Pro-B Natriuret Pep Total Protein Albumin Globulin Albumin/Globulin Ratio Lipase Procalcitonin Urine Color Urine Appearance Urine pH Ur Specific [place] Urine Protein Urine Glucose (UA) Urine Ketones Urine Occult Blood Urine Nitrate Urine Bilirubin Urine Urobilinogen Ur Leukocyte Esterase Urine RBC Urine WBC Ur Squamous Epith Cells Urine Bacteria Ur Culture Indicated? Vol Urine Centrifuged Nasal Screen MRSA (PCR) Ethyl Alcohol Ketones A.calcoaceticus-baumannii cmplx PCR Bacteroides fragilis Jessica albicans (PCR) Jessica auris (PCR) C. glabrata (PCR) C. krusei (PCR) C. parapsilosis (PCR) C. tropicalis (PCR) C. neoform/gattii (PCR) Enterobacterales (PCR) E. cloacae complex PCR Enterococc faecalis PCR Enterococc faecium PCR E. coli (PCR) H. influenzae (PCR) Klebsiella aerogenes (PCR) Klebsiella oxytoca PCR Klebsiella pneumoniae List. monocytogenes PCR N. meningitidis (PCR) Proteus species (PCR) Salmonella spp. (PCR) Serratia marcescens PCR Staphylococcus sp PCR Staph aureus (PCR) mecA/C & MREJ Resist Gene mecA/C-Methicil Resis Gene mcr-1 Colistin Res Gene PCR Staph epidermidis (PCR) Staph lugdunensis PCR S. maltophilia (PCR) Streptococcus sp PCR Group A Strep (PCR) Strep agalactiae (PCR) Strep pneumoniae (PCR) P. aeruginosa (PCR) Jose L/B-Vanco Res Genes blaIMP Car res Gene PCR KPC-Carbap Res Gene PCR blaNDM Car Res Gene PCR OXA-48 Carbapenem Resis Gene (PCR) blaVIM Car Res Gene PCR CTX-M Gene Resistance (PCR) [facility] Medical History Diabetes Alcohol abuse Hypertension Social History household members: none Smoking Status: Current every day smoker alcohol intake: current Assessment & Plan Assessment & Plan narrative: 1. DKA, present on admission and active. Probable dietary and medication noncompliance. 2. Hypovolemic hyponatremia, present on admission and active. 3. Acute kidney injury secondary to volume depletion, present on admission and active. 4. Alcohol abuse, present on admission and active. Unclear if she is at risk for withdrawal. 5. Significant leukocytosis without clinical evidence of infection, present on admission and active. 6. Metabolic encephalopathy, present on admission and active. 7. Substernal Chest Pain, not present on admission. Active. Plan: -now that the anion gap has closed and the blood sugars have returned to her normal range, the drip will be stopped, her home glargine will be started and a correctional lispro scale will be initiated. Carb choice diet. -hemoglobin A1c 11.2 with blood sugar of 174 and potassium of 4.3. Creatinine now 0.77. -[facility] protocol for potential alcohol withdrawal. -improving white blood count, follow and consider abdominal/blood culture workup. -begin PPI therapy She is DNR Her son and [id number] are proxy decision makers. Her son is a pharmacist in charge owner, daughter in-law is a hospice nurse. Time-Based Coding :: [TOTAL MINUTES] spent with patient and on the chart (including review of chart, obtaining history, exam, reviewing outside data, placing orders, documenting exam and treatment plan, and counseling patient) on [DATE]. Quality VTE Deep Vein Thrombosis/Pulmonary Embolism Present on Admission: No
--- NOTE | 2024-04-19 08:52 | PC.NURSE ---
Addendum entered by Hammad Camacho R.N. 04/19/24 10:08: Patient reports chest and stomach pain has resided, but her throat is sore now, patient reports some cough that started yesterday. Addendum entered by Hammad Camacho R.N. 04/19/24 09:09: Maalox given as ordered, patient assisted to sit upright in bed. She reports she wasn't feeling well with the flu last week and this could be left over from that. Currently declines taking po morning meds due to her stomach, currently reporting she is starting to feel better and pain is decreased to a 5/10. Will continue to monitor. Original Note: 844 patient called to get help, patient reports pain in her chest. Has some difficulty describing, but says her stomach hurts and middle of chest with sharp 8/10 pain. Vital signs taken and stable, BG 174. Dr Rodas notified right aware and came to bedside to evaluate patient. VORB for maalox now, will continue to monitor.
[2024-04-19] MEDS: MAG HYDROX/ALUM/SIMETH 30 ML UDC PO (09:02)
[2024-04-19] MEDS: DEXTROSE 5%-0.45NS W/KCL 20MEQ 1,000 ML 150 MEQ IV (09:58)
[2024-04-19] MEDS: HEPARIN 5,000 UNIT/ML VIAL 5000 UNIT SUBCUT ×2 (09:58→21:35)
[2024-04-19] MEDS: INSULIN GLARGINE 100 UNIT/ML 3ML PEN 20 UNIT SUBCUT (11:49)
[2024-04-19] MEDS: MULTIVITAMIN 1 TABLET 1 TAB PO (11:50)
[2024-04-19] MEDS: PANTOPRAZOLE DR 40 MG TABLET PO (11:50)
[2024-04-19] MEDS: INSULIN LISPRO 100 UNIT/ML 3ML VIAL SUBCUT (11:51)
--- NOTE | 2024-04-19 15:47 | CM.DANOTE ---
Initial DCP Assessment Note Pt is a 78 yo female, resident of [place], arrives in DKA PCP: Thompson Jalloh Payer: Maria Isabel PÉREZ Met w/patient and her daughter Soniya Morris at bedside. Patient and her family moved from the [facility] approx 5 years ago. Daughter Soniya Morris is a systems technician and her is an EMS for [employer]. According to patient, she lives alone, independently in [place]. Patient has friends to assist with driving longer distances, family can assist with small chores as needed. Patient denies hx of HH or SNF; says she would consider a SNF in [place] if recommended. Patient reports it is going well, overall, at home, admits that she should quit smoking and drinking to have a better quality of life. Daughter confides with this TALENT RECRUITER outside of patient's room that she has had to distance herself from patient as patient continues to drink heavily-possibly a half/whole bottle of wine daily- and does not manage her diabetes or other health needs. Discussed process for SNF placement if recommended and patient agreeable. Patient has [employer] MCR which may be a barrier to timely discharge to SNF. Just learned also that [facility], patient's choice of SNF, does not take [employer] MCR. CM team will continue to follow closely and support patient and family as clinical course unfolds. RM Mercer Discharge Planning/Care Management CM Discharge Assessment Start: 04/19/24 15:39 Freq: Status: Active Protocol: Document 04/19/24 15:45 KWESI (Rec: 04/19/24 15:47 KWESI [id number]) Discharge Planning Assessment Assigned Ankle Patch Molder RM Dumont DPOA/Assigned Designee Name Soniya Duenas, guy Contact Information [phone] Advance Directives? Yes; AD Advance Directives on File No History Provided By Patient,Family Member,Medical Record Prior Living Arrangements House Household Members none Type of transporation used prior to Drives own vehicle admit Comment Short distances Independent with ADL's Yes Is patient alert and oriented? Yes Patient/Family Preference Care Home Facility,Home with Home Health Comment SNF vs return home w/HH. Therapies pending. Discharge Plan Home with Home Health Transportation Arrangement Family vs facility vehicle if SNF Additional Comment Awaiting therapy recs, then will discuss with patient and daughter
--- NOTE | 2024-04-19 16:46 | EKG_ITS ---
[address] [address] Test Date: 2024-04-19 Pat Name: Jaylene Mack Department: [facility] Room: 228 Gender: Female Rn Surgery: FEMI : 1945 Requested By: Order Number: [id number] Reading MD: Measurements Intervals [place] Rate: 90 P: 66 TN: 144 QRS: -61 QRSD: 96 T: 69 QT: 382 QTc: 467 Interpretive Statements Normal sinus rhythm Left anterior fascicular block Minimal voltage criteria for LVH, may be normal variant ( Belden product ) Electronically Signed On 04-19-2024 17:32:05 PST by Wolf Rodas
[2024-04-19] MEDS: NITROGLYCERIN 0.4 MG SL TAB SL (16:53)
--- NOTE | 2024-04-19 16:57 | PC.NURSE ---
Addendum entered by Hammad Camacho R.N. 04/19/24 16:59: Patient used call light to notify DETECTIVE that she had chest pain. Patient had been sleeping. BG 113, VSS, describes pain again as sharp 8/10 in middle of chest. Dr[address] Rodas notified. Order for EKG and 1 dose of nitro SL obtained and completed. Patient currently sitting up in bed, states she has no energy today but pain is gone after 1 dose of nitro at this time. BP 111/61 HR 92 SR. Patient requesting tylenol. Original Note: Patient used call light to notify DETECTIVE that she had
[2024-04-19] MEDS: ACETAMINOPHEN 325 MG TABLET 650 MG PO ×2 (17:07→23:11)
[2024-04-19] MEDS: DEXTROSE 10 % IN WATER 100 ML 999 ML IV (21:36)
[2024-04-20] VITALS (21 sets, daily range): BP systolic 111–164; BP diastolic 64–90; PULSE 80–102; RESP 18–31; TEMP 36.2–36.6; O2SAT 94–97
[2024-04-20] MEDS: DEXTROSE 10 % IN WATER 100 ML 999 ML IV (04:04)
[2024-04-20 05:30] LABS: BUN Creatinine Ratio 35.7 (6-22); Blood Urea Nitrogen 15 mg/dL (7-17); Calcium 8.9 mg/dL (8.4-10.2); Carbon Dioxide 22 mmol/L (22-32); Chloride 105 mmol/L (98-107); Estimated Glomerular Filt Rate > 60 mL/min (>60); Glucose 94 mg/dL (80-110); HEMOLYSIS 37 (0-50); Potassium 3.3 mmol/L (3.4-5.1); Sodium 131 mmol/L (137-145)
[2024-04-20 05:40] LABS: Add Manual Diff / Slide Review NO; Basophils Absolute Auto 0 /uL (0-100); Basophils Percent Auto 0.3 % (0-2); Eosinophils Absolute Auto 0 /uL (0-450); Hematocrit 36.4 % (36-46); Hemoglobin 12.3 g/dL (12.0-16.0); Lymphocytes Absolute Auto 1200 /uL (1100-4500); Lymphocytes Percent Auto 9.5 % (25-40); Mean Corpuscular HGB Conc 33.8 % (30-36); Mean Corpuscular Hemoglobin 29.3 PG (26-34); Mean Corpuscular Volume 86.8 fL (80-100); Monocytes Absolute Auto 1600 /uL (0-900); Monocytes Percent Auto 12.8 % (3-14); Neutrophils Absolute Auto 9800 /uL (1500-7000); Neutrophils Percent Auto 77.4 % (50-75); Platelet Count 281 X10^3/uL (150-400); Red Blood Cell Count 4.19 X10^6/uL (4.0-5.2); Red Cell Distribution Width 14.4 % (11.6-14.8); White Blood Cell Count 12.7 X10^3/uL (4.5-11.0)
[2024-04-20] MEDS: PANTOPRAZOLE DR 40 MG TABLET PO (06:39)
--- NOTE | 2024-04-20 08:08 | PM.PN.1 ---
Subjective Subjective Date Patient Seen: 04/20/24 Interval history: She is seen today to follow-up her DKA and hypokalemia. The potassium is 3.3 today. She will be started on oral potassium 20 mEq b.i.d.. Her blood sugars have been in the 60s so her Lantus dose will be decreased to 15 units. She says it is too loud to sleep here last night. Her blood pressure is 156/81. Exam Vital Signs (past 8 hours): - 04/20/24 01:00 04/20/24 01:00 04/20/24 02:00 Temperature Pulse Rate 82 84 Respiratory Rate 27 H 24 Blood Pressure 164/81 H Pulse Oximetry 97 96 Oxygen Delivery Method Oxygen Flow Rate 04/20/24 02:00 04/20/24 03:00 04/20/24 03:00 Temperature Pulse Rate 83 Respiratory Rate 26 H Blood Pressure 138/78 140/73 Pulse Oximetry 97 Oxygen Delivery Method Oxygen Flow Rate 0 04/20/24 04:00 04/20/24 04:00 04/20/24 04:00 Temperature 97.7 F Pulse Rate 86 Respiratory Rate 22 Blood Pressure 135/74 Pulse Oximetry 96 Oxygen Delivery Method Room Air Oxygen Flow Rate 0 04/20/24 05:00 04/20/24 05:00 04/20/24 06:00 Temperature Pulse Rate 80 81 Respiratory Rate 18 20 Blood Pressure 144/74 H Pulse Oximetry 97 95 Oxygen Delivery Method Oxygen Flow Rate 0 04/20/24 06:00 04/20/24 07:00 04/20/24 07:00 Temperature 97.6 F Pulse Rate 82 Respiratory Rate 21 Blood Pressure 133/75 Pulse Oximetry 94 Oxygen Delivery Method Oxygen Flow Rate 0 04/20/24 07:00 04/20/24 07:40 04/20/24 08:00 Temperature Pulse Rate 85 Respiratory Rate 22 Blood Pressure 129/65 Pulse Oximetry 95 Oxygen Delivery Method Room Air Oxygen Flow Rate 04/20/24 08:00 Temperature Pulse Rate Respiratory Rate Blood Pressure 156/81 H Pulse Oximetry Oxygen Delivery Method Oxygen Flow Rate Oxygen Delivery Method Room Air Oxygen Flow Rate 0 Narrative Exam Narrative: Alert and oriented x3. No apparent distress. Heart is regular rate and rhythm without murmur. Lungs are clear to auscultation bilaterally Extremities have no ankle edema Objective Labs 04/20/24 04:29 04/20/24 04:29 Labs: Laboratory Results - last 24 hr 04/20/24 04:29 WBC 12.7 H RBC 4.19 Hgb 12.3 Hct 36.4 MCV 86.8 MCH 29.3 MCHC 33.8 RDW 14.4 Plt Count 281 Neut % (Auto) 77.4 H Lymph % (Auto) 9.5 L [place] % (Auto) 12.8 Eos % (Auto) 0.0 L Baso % (Auto) 0.3 Neut # (Auto) 9800 H Lymph # (Auto) 1200 [place] # (Auto) 1600 H Eos # (Auto) 0 Baso # (Auto) 0 Sodium 131 L Potassium 3.3 L Chloride 105 Carbon Dioxide 22 BUN 15 Creatinine 0.42 L Estimated GFR > 60 BUN/Creatinine Ratio 35.7 H Glucose 94 Calcium 8.9 PFSH Medical History Diabetes Alcohol abuse Hypertension Social History household members: none Smoking Status: Current every day smoker alcohol intake: current Assessment & Plan Assessment & Plan narrative: 1. DKA, present on admission and active. Probable dietary and medication noncompliance. 2. Hypovolemic hyponatremia, present on admission and active. 3. Acute kidney injury secondary to volume depletion, present on admission and active. 4. Alcohol abuse, present on admission and active. No signs of withdrawal. 5. Significant leukocytosis without clinical evidence of infection, present on admission and active. 6. Metabolic encephalopathy, present on admission and active. 7. Substernal Chest Pain, not present on admission. Active. Plan: -DKA signs have resolved. Lantus dose will be decreased to 50 units due to low normal glucose results overnight. -hemoglobin A1c 11.2 -potassium 3.3 today so that will be corrected with oral potassium and she will likely be discharged tomorrow. -[facility] protocol for potential alcohol withdrawal. -chest pain resolved with PPI therapy She is DNR Her son and [id number] are proxy decision makers. Her son is a delicatessen clerk, daughter in-law is a hospice nurse. Plan discharge home on 04/21 Time-Based Coding :: [TOTAL MINUTES] spent with patient and on the chart (including review of chart, obtaining history, exam, reviewing outside data, placing orders, documenting exam and treatment plan, and counseling patient) on [DATE]. Quality VTE Deep Vein Thrombosis/Pulmonary Embolism Present on Admission: No
[2024-04-20] MEDS: FOLIC ACID 1 MG TABLET PO (09:08)
[2024-04-20] MEDS: THIAMINE 100 MG TABLET PO (09:08)
[2024-04-20] MEDS: HEPARIN 5,000 UNIT/ML VIAL 5000 UNIT SUBCUT ×2 (09:08→21:51)
[2024-04-20] MEDS: MULTIVITAMIN 1 TABLET 1 TAB PO (09:08)
[2024-04-20] MEDS: INSULIN GLARGINE 100 UNIT/ML 3ML PEN 20 UNIT SUBCUT (09:08)
[2024-04-20] MEDS: INSULIN LISPRO 100 UNIT/ML 3ML VIAL SUBCUT ×3 (12:03→21:51)
[2024-04-20] MEDS: POTASSIUM CHLORIDE 20 MEQ TAB PO ×2 (12:04→17:44)
--- NOTE | 2024-04-20 13:30 | DIET.CONS ---
Dietary Consultation Note Admission Date: 04/18/2024 17:29 Assessment: 78 y F admitted with DKA. RD screened for low MNA score. Met with pt at bedside. Pt reports good appetite today, but before admission to hospital had gradual decrease in appetite over the last month. Normal dietary intake is serving of oatmeal in morning w/ no sugar and salad and chicken at night per pt. Pt's normal dietary intake is less than 75% of her estimated energy needs. Estimate pt was consuming less than 50% of estimated energy needs in past month while experiencing gradual decrease of appetite. Nutrition focused physical exam shows: -Severe muscle mass loss in temples, deltoid, pectoralis, trapezius, interosseous -Moderate to severe subcutaneous fat loss in tricep and buccal and orbital fat pads Per POWDERED SUGAR PULVERIZER OPERATOR note- patient's daughter reports pt consuming a 1/2 to whole bottle of wine daily and no managing medications for diabetes. Pt denies CGM and reports she will consider going back to the outpatient diabetic educator. Discussed updating her BG meter. Ht: 157.48 cm Wt: 50 kg BMI: 19.3 (underweight) UBW: 54.5 kg 1 yr ago per pt (-8.3% loss within 1 yr, non-severe) Last BM: 04/17/24 (04/18/24 19:05) MNA: 10 Oliverio Score: 18 Diet: 04/19/24 Lunch Carbohydrate Consistent Diet Diet Modifications: Carbohydrate level: Medium (3 CHO) Reflex DM orders: No Food Texture: Level 7 - Regular Liquid Consistency: Level 0 - Thin Nutrition Percent Meal Consumed 90 04/20/24 09:25 Percent Meal Consumed 0% 04/19/24 12:00 Labs: RBC 4.19 X10^6/uL (4.0-5.2) 04/20/24 04:29 Hgb 12.3 g/dL (12.0-16.0) 04/20/24 04:29 Hct 36.4 % (36-46) 04/20/24 04:29 Creatinine 0.42 mg/dL (0.52-1.04) L 04/20/24 04:29 Hemoglobin A1c 11.2 % (4.0-6.0) H 04/19/24 06:00 Lactate 1.4 mmol/L (0.7-2.1) 04/18/24 22:31 NT-Pro-B Natriuret Pep 248 pg/mL (<450) 04/18/24 16:00 Nutrition Diagnosis: Severe chronic Protein Calorie Malnutrition r/t uncontrolled diabetes and inadequate nutrient-dense intake with excessive EtOH intake as evidenced by EtOH intake of 1/2 to whole bottle of wine daily, A1c 11.2%, <75% of estimated energy needs for >3 months per diet recall (severe), severe muscle mass loss (temporalis, deltoid, trapezius, pectoralis, interosseous), moderate to severe subcutaneous fat loss (buccal and orbital fat pads, triceps), and BMI underweight for age (19.3) Interventions: -ONS or caloric supplementation TID -Coordinated with diabetic educator -Discussed realistic ways to increase caloric-protein intake to support weight gain EER: 1750 kcals (35 kcals/kg per BMI/PCM) 75-85 g protein (1.5-1.7 g/kg) Monitoring/Evaluations: Electronically Signed by: Sherin Lewis 04/20/24 13:30 [address] [address]
[2024-04-21] VITALS (10 sets, daily range): BP systolic 103–205; BP diastolic 66–115; PULSE 88–102; RESP 19–26; TEMP 36.5–36.6; O2SAT 89–95
[2024-04-21 05:42] LABS: BUN Creatinine Ratio 21.3 (6-22); Blood Urea Nitrogen 10 mg/dL (7-17); Calcium 8.6 mg/dL (8.4-10.2); Carbon Dioxide 27 mmol/L (22-32); Chloride 99 mmol/L (98-107); Estimated Glomerular Filt Rate > 60 mL/min (>60); Glucose 214 mg/dL (80-110); HEMOLYSIS < 15 (0-50); Potassium 3.4 mmol/L (3.4-5.1); Sodium 128 mmol/L (137-145)
[2024-04-21] MEDS: PANTOPRAZOLE DR 40 MG TABLET PO (08:02)
[2024-04-21] MEDS: POTASSIUM CHLORIDE 20 MEQ TAB PO (08:02)
--- NOTE | 2024-04-21 08:26 | P.DS_ITS ---
History of Present Illness History of Present Illness Date Patient Seen: 04/21/24 Chief complaint: Vomiting Narrative: The patient is a 78-year-old female who presents with DKA. She was accompanied by a son and [id number]. 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 The patient lives alone in [place], she presents tonight with DKA in the severe leukocytosis. She was afebrile. She was on a fairly simple regimen of Lantus only at home, her PCP is Dr. Jalloh. The patient was somewhat resistant to self-care with regards to her diabetes. She was not really provide any history tonight because she was relatively lethargic. Her family does state that she drinks too much alcohol, possibly a half a bottle a day. They do not really know of any specific episodes of withdrawal. They also believe that she has been skipping insulin and probably not checking her blood sugars at home. They had considered a continuous blood glucose monitor, however the patient had no interest in this. The patient denies any pain, recent URI symptoms including rhinorrhea, cough or shortness a breath. She also denies any diarrhea, or abdominal pain. There is also no report of chest pain. The patient engages minimally and does not offer any additional details. The patient is proxy decision makers are son and [id number], they do attest that she was do not resuscitate. Discharge Providers Provider Date of admission: 04/18/24 17:29 Discharge Date: 04/21/24 Primary care physician: Thompson Jalloh MD Discharge provider: Evonne Rodas MD Summary Hospital Course Discharge Diagnosis: 1. DM with DKA secondary to probable dietary and medication noncompliance. 2. Hypovolemic hyponatremia 3. Acute kidney injury secondary to volume depletion 4. Alcohol abuse 5. Significant leukocytosis without clinical evidence of infection 6. Metabolic encephalopathy 7. Substernal Chest Pain - resolved with PPI treatment Hospital Course: She came in with weakness and confusion caused by DKA. With insulin drip and abstinence from alcohol her anion gap closed overnight and she was changed back to her usual insulin regimen of Lantus with a correctional scale of lispro. Her A1c is very high at 11.2 although her daughter points out that more recently it had been actually higher, at 13. Her potassium has been running slightly low at 3.3 and 3.4. She will be started on 20 meq Kcl BID for the next week. The sodium is also chronically low, this morning 128. Her episode of CP responded to Protonix so that will be continued for one month. She insists that she will stop drinking wine. She will follow-up with Dr. Thompson Jalloh. Status at Discharge Cognitive/behavioral status at discharge: at baseline, oriented Functional status at discharge: uses cane/walker Overall status at discharge: patient is progressing back to baseline Exam Vital Signs (past 8 hours): - 04/21/24 02:00 04/21/24 03:00 04/21/24 04:00 Temperature 97.8 F Pulse Rate 97 H 93 H Respiratory Rate 23 24 Blood Pressure 137/70 Pulse Oximetry 94 93 Oxygen Delivery Method Room Air Oxygen Flow Rate 0 04/21/24 04:00 04/21/24 04:00 04/21/24 04:03 Temperature Pulse Rate 92 H Respiratory Rate 21 Blood Pressure 205/115 H 150/71 H Pulse Oximetry 93 Oxygen Delivery Method Oxygen Flow Rate 04/21/24 04:03 04/21/24 04:04 04/21/24 04:04 Temperature Pulse Rate 93 H 93 H Respiratory Rate 26 H 24 Blood Pressure 137/70 Pulse Oximetry 94 93 Oxygen Delivery Method Oxygen Flow Rate 04/21/24 06:00 04/21/24 07:50 04/21/24 07:50 Temperature Pulse Rate 88 102 H Respiratory Rate 19 26 H Blood Pressure 144/81 H Pulse Oximetry 95 93 Oxygen Delivery Method Oxygen Flow Rate 04/21/24 08:00 Temperature Pulse Rate 101 H Respiratory Rate 25 H Blood Pressure Pulse Oximetry 95 Oxygen Delivery Method Oxygen Flow Rate Oxygen Delivery Method Room Air Oxygen Flow Rate 0 Narrative Exam Narrative: Alert and oriented x3. No apparent distress. Heart is regular rate and rhythm without murmur Lungs are clear to auscultation bilaterally Extremities have no ankle edema Objective Labs 04/20/24 04:29 04/21/24 05:00 Labs: Laboratory Results - last 24 hr 04/21/24 05:00 Sodium 128 L Potassium 3.4 Chloride 99 Carbon Dioxide 27 BUN 10 Creatinine 0.47 L Estimated GFR > 60 BUN/Creatinine Ratio 21.3 Glucose 214 H D Calcium 8.6 PFSH Medical History Diabetes Alcohol abuse Hypertension Social History household members: none Smoking Status: Current every day smoker alcohol intake: current Discharge Plan Discharge Plan Patient Disposition: Home Provider Discharge Comment: Advised to stop drinking wine, follow up with Dr. Jalloh in 1-2 weeks and to participate in home health PT and OT. Discharge orders & Medications Prescriptions: New potassium chloride [Klor-Con M20] 20 mEq Tablet,Er Particles/Crystals 20 meq PO BIDWM Qty: 10 0RF folic acid 1 mg Tablet 1 mg PO DAILY Qty: 30 0RF thiamine mononitrate (vit B1) 100 mg Tablet 100 mg PO DAILY Qty: 30 0RF pantoprazole 40 mg Tablet,Delayed Release (Dr/Ec) 40 mg PO 0700 Qty: 30 0RF Continued insulin glargine [Lantus Solostar U-100 Insulin] 100 unit/mL (3 mL) insulin pen 20 unit SUBCUT DAILY multivitamin Tablet 1 tab PO DAILY Follow up/Referrals: Thompson Jalloh MD [Primary Care Provider] - Diet/Activity/Treatments Diet: Carb-consistent/Diabetic Visit Report/Discharge Packet Stand Alone Forms: Patient Portal/API, Stroke Signs & Symptoms Discharge Data Primary Care Provider: Thompson Jalloh Quality VTE Deep Vein Thrombosis/Pulmonary Embolism Present on Admission: No
[2024-04-21] MEDS: HEPARIN 5,000 UNIT/ML VIAL 5000 UNIT SUBCUT (08:49)
[2024-04-21] MEDS: INSULIN LISPRO 100 UNIT/ML 3ML VIAL SUBCUT ×2 (08:50→12:33)
[2024-04-21] MEDS: INSULIN GLARGINE 100 UNIT/ML 3ML PEN 20 UNIT SUBCUT (08:50)
[2024-04-21] MEDS: MULTIVITAMIN 1 TABLET 1 TAB PO (08:51)
[2024-04-21] MEDS: THIAMINE 100 MG TABLET PO (08:51)
[2024-04-21] MEDS: FOLIC ACID 1 MG TABLET PO (08:51)
--- NOTE | 2024-04-21 12:06 | CM.DPNOTE ---
DCP Note NURSE INFORMATICIST reviewed EMR Per provider in morning rounds, anticipate dc home today. per chart review, no PT so far this admission/no HH referral. NURSE INFORMATICIST met with pt in room. Agreeable to dc home today. has been walking around since admission. denies wanting HH/ETOH resources at this time. reports friend can transport her home whenever it's all ready. P: home today no CM/DCP needs at this time. CM team will continue to follow as needed RM Graham
--- NOTE | 2024-04-21 13:44 | PC.NURSE ---
1341--pt discharged home via private vehicle; iv's and tele removed; written and verbal discharge instructions given to pt; prescriptions sent to [facility] in [place], but pt requested they be changed to [facility] in [place]; Dr Rodas notified and he is changing pharmacy; all belongings sent w/ pt; she denies any questions or complaints
== END 2024-04-21 13:41 | disposition home or self-care (01) | DRG 637 ==
LOC: ED 17:29 → AC 17:30 → ICU 17:44
PROVIDERS: Hospitalist; Admitting Provider Family Medicine; Emergency Provider Emergency Medicine; PCP Family Medicine; Referring Provider Emergency Medicine; Visit Provider Family Medicine
DX: E11.10 Type 2 diabetes mellitus with ketoacidosis without coma (principal); G93.41 Metabolic encephalopathy; N17.9 Acute kidney failure, unspecified; E87.1 Hypo-osmolality and hyponatremia; E86.1 Hypovolemia; E86.9 Volume depletion, unspecified; F10.10 Alcohol abuse, uncomplicated; D72.829 Elevated white blood cell count, unspecified; R07.9 Chest pain, unspecified; E87.6 Hypokalemia; F17.200 Nicotine dependence, unspecified, uncomplicated; T38.3X6A Underdosing of insulin and oral hypoglycemic [antidiabetic] drugs, initial encounter; Y90.0 Blood alcohol level of less than 20 mg/100 ml; Z91.119 Patient's noncompliance with dietary regimen due to unspecified reason; Z66 Do not resuscitate; Z79.4 Long term (current) use of insulin; Z86.79 Personal history of other diseases of the circulatory system
CPT/HCPCS: 36415; 71045; 80048; 80053; 80320; 81001; 82009; 82805; 82962; 83036; 83605; 83690; 83735; 83880; 84145; 84484; 85007; 85025; 87040; 87154; 87797; 93005; 93010; 96361; 96365; 96366; 99284; 99291; J1644; J1815; J7050

== ENCOUNTER → 2024-06-20 15:54 | Outpatient (CLI) | payer OTHER, SELFPAY ==
[2024-04-18 19:05] VITALS: BMI 19.3
== END ==
LOC: DIET 15:54
PROVIDERS: PCP Family Medicine
DX: E11.9 Type 2 diabetes mellitus without complications (principal); Z71.3 Dietary counseling and surveillance
CPT/HCPCS: G0108

== ENCOUNTER → 2024-07-12 13:46 | Outpatient (CLI) | payer OTHER, SELFPAY ==
[2024-04-18 19:05] VITALS: BMI 19.3
--- NOTE | 2024-07-12 13:57 | DIAB.FU ---
Follow-up Diabetes Education Assessment Name: Jaylene Melvin Date: 06/20/24 Time: 410-515p Dx: Type I Diabetes Jaylene presents for DM follow-up, last RD visit in 07/2023. Since that time was admitted for DKA. Reports she ran out of insulin on a Wednesday and ended up admitted on the following Wednesday. States her provider has changed her insulin but she is confused about the chagnes. Endorses a lot of family dynamics with her daughter, a hospice nurse. During last admission, reports her daughter was quite upset with her about how she is managing her health. States they are not on speaking terms. Reports she is rotating injection sites. Mostly injecting in thighs. Feeling more open to CGM. Will trial sample next visit. Today she reports she really would like to focus on quality of life. For her, she reports this includes as minimal intervention as possible and keeping BG in a mostly therapeutic range. Not currently taking any fast acting insulin. BG are quite variable. Self-Monitoring Blood Glucose: Checking FBG and occasional HS readings. Most above goal. Date Pre Post Pre Post Pre Post HS 06/09 345 06/10 138 06/12 165 06/13 129 06/14 266 17 198 06/20 235 Diabetes Medications: Lantus 20u Pertinent Labs: HgA1c 10.8% 04/2023 10.3% 06/2023 11.2% 04/19/24 Past Medical History: (Last Reviewed 04/18/24 @ 18:28 by Baudilio Bishop MD) Alcohol abuse Diabetes DKA April 2023, again April 2024 Hypertension Intervention: This participant was very receptive. Provided appropriate educational handouts. Discussed the following topics: Blood sugar review and trends. CGM education, benefits and precautions Insulin types and action T1 pathophysiology Family dynamics in diabetes care Setting boundaries with family about DM. Importance of support in DM care. Quality of life and therapeutic BG ranges Resources for if she runs out of insulin again Created SMART goals for patient self-care and success. Goals: Continue checking FBG Follow-up: [facility] follow-up in 2-3 weeks for CGM sample. Manuela Ochoa RDN, FRITZ Certified Diabetes Care and Communications Writer P: [phone] Thank you for this referral
--- NOTE | 2024-07-26 11:17 | DIAB.FU ---
Addendum entered by Manuela Ochoa 07/26/24 11:34: MNT Note Original Note: Follow-up Diabetes Education Assessment Name: Jaylene Melvin Date: 07/12/24 Time: 2-3p Dx: Type I Diabetes Jaylene presents for DM follow-up, Today wants to trial CGM sample. Also wanting to know more about high kcal foods and folic acid dosing. May need insulin injection technique review as well. States UBW is 115# Today reports 104# wt likely down r/t hyperglycemia. Sees PCP in August Anthropometrics: Ht: 63 Wt: 104# reported Self-Monitoring Blood Glucose: Checking FBG and occasional HS readings. Most above goal. 199 212 136 207 97 212 375 294 214 216 116 Diabetes Medications: Lantus 20u Pertinent Labs: HgA1c 10.8% 04/2023 10.3% 06/2023 11.2% 04/19/24 Past Medical History: (Last Reviewed 04/18/24 @ 18:28 by Baudilio Bishop MD) Alcohol abuse Diabetes DKA April 2023, again April 2024 Hypertension Nutrition Rx: Carbohydrates: Meal:30-45g Snack:15-30g Nutrition Diagnosis: - Altered nutrition related lab value r/t endocrine dysfunction aeb hgA1c of 11.2% - Nutrition and food related knowledge deficit r/t needing MNT for DM and wt gain aeb pt report and 9.5% under UBW Intervention: This participant was very receptive. Provided appropriate educational handouts. Discussed the following topics: Blood sugar review and trends. CGM education, benefits and precautions and self placement Foods to eat for wt gain Impact of hyperglycemia on wt loss Created SMART goals for patient self-care and success. Goals: Continue checking FBG - met Keep a food journal- new wear CGM x 10.5 days- new Follow-up: [facility] follow-up in 2-3 weeks Manuela Ochoa RDN, FRITZ Certified Diabetes Care and Senior Master Scheduler P: [phone] Thank you for this referral
== END ==
LOC: DIET 13:46
PROVIDERS: PCP Family Medicine; Referring Provider Family Medicine
DX: E10.65 Type 1 diabetes mellitus with hyperglycemia (principal); Z71.3 Dietary counseling and surveillance
CPT/HCPCS: 97803

== ENCOUNTER → 2024-07-26 10:58 | Outpatient (CLI) | payer OTHER, SELFPAY ==
[2024-04-18 19:05] VITALS: BMI 19.3
--- NOTE | 2024-07-26 11:35 | DIAB.FU ---
Follow-up Diabetes Education Assessment Name: Jaylene Melvin Date: 07/26/24 Time: -[id number] Dx: Type I Diabetes Jaylene presents for DM follow-up, Wore CGM sample. Unsure if she wants one for herself. Questions about cost and wear. BG pretty elevated. For quality of life, does not want to do MDI. States her PCP did previously rx an insulin that she needed to mix at home. May benefit from 70/30 premixed pens. Needs to schedule PCP appt per report, but plans to see PCP in August. Has questions about injection technique and scar tissue. Denies any scarring at this time. Only uses legs to inject, but does rotate sites per report. Wants to know how to power off CGM when sensor expires. Wants to try one more sample before committing to rx. States she is unsure what the real benefit to having a CGM is. States she does not feel elevations. Anthropometrics: Ht: 63 Wt: 104# reported 07/2024 Self-Monitoring Blood Glucose: TIR indicates excessive hyperglycemia. FBG sometimes in goal, sometimes elevated. Overall, needs meal time coverage. TIR: 75% very high 16% high 9% in rnage 0% low avmg/dl GMI: 11% std dev: 88mg/dl variation: 27.2% Diabetes Medications: Lantus 20u Pertinent Labs: HgA1c 10.8% 04/2023 10.3% 06/2023 11.2% 04/19/24 Past Medical History: (Last Reviewed 04/18/24 @ 18:28 by Baudilio Bishop MD) Alcohol abuse Diabetes DKA April 2023, again April 2024 Hypertension Intervention: This participant was very receptive. Provided appropriate educational handouts. Discussed the following topics: Blood sugar review and trends. CGM education, benefits and precautions and self placement CGM as a safety net for potential lows with changing insulin types or dosing Insulin types and options for mixed insulin to reduce MDI as much as possible Injection techniques to reduce scar tissue risk Powering off CGM customer operations manager prn Need for insulin coverage for meals given T1 dx Created SMART goals for patient self-care and success. Goals: Keep a food journal- met but did not bring today wear CGM x 10.5 days- met Make PCP appt- new Wear CGM x 10.5 days - new Follow-up: [facility] follow-up in 2-3 weeks. If deciding to order Dexcom G7, recommend rx to go to [facility]) or similar DME for best coverage with her insurance. Manuela Ochoa RDN, [facility] Certified Diabetes Care and Postpartum Rn P: [phone] Thank you for this referral
== END ==
PROVIDERS: PCP Family Medicine; Referring Provider Family Medicine
DX: E10.65 Type 1 diabetes mellitus with hyperglycemia (principal); Z71.3 Dietary counseling and surveillance
CPT/HCPCS: G0108

== ENCOUNTER → 2024-08-08 15:01 | Outpatient (CLI) | payer OTHER, SELFPAY ==
[2024-04-18 19:05] VITALS: BMI 19.3
--- NOTE | 2024-08-09 16:58 | DIAB.FU ---
Follow-up Diabetes Education Assessment Name: Jaylene Melvin Date: 08/08/24 Time: 310-350p Dx: Type I Diabetes Jaylene presents for DM follow-up, Wore CGM sample. states she is leaning toward not having a CGM. Hesitation comes from wearing a device and from alerts. Did educate on how alerts can be tailored. BG continues to be elevated. 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 For quality of life, does not want to do MDI. States her PCP did previously rx an insulin that she needed to mix at home. May benefit from 70/30 premixed pens. Plans to see her PCP 08/09 to discuss. Completed new labs and urinalysis per report. Has questions about types of DM. Anthropometrics: Ht: 63 Wt: 104# reported 07/2024 Self-Monitoring Blood Glucose: Checking FB, 194, 233, 232, 162, 237 (most FBG elevated) Last TIR: 75% very high 16% high 9% in rnage 0% low avmg/dl GMI: 11% std dev: 88mg/dl variation: 27.2% Diabetes Medications: Lantus 20u Pertinent Labs: HgA1c 10.8% 04/2023 10.3% 06/2023 11.2% 04/19/24 Past Medical History: (Last Reviewed 04/18/24 @ 18:28 by Baudilio Bishop MD) Alcohol abuse Diabetes DKA April 2023, again April 2024 Hypertension Intervention: This participant was very receptive. Provided appropriate educational handouts. Discussed the following topics: Blood sugar review and trends. CGM education, benefits and alert changes CGM as a safety net for potential lows with changing insulin types or dosing Insulin types and options for mixed insulin to reduce MDI as much as possible Type I vs Type II treatment and pathophysiology Need for insulin coverage for meals given T1 dx Risk for lows with changes in insulin and importance of BG checks and keeping low tx accessible DKA risk with running out of insulin and/or not being on adequate insulin Created SMART goals for patient self-care and success. Goals: Make PCP appt- met Wear CGM x 10.5 days - met Check BG at BID: FBG and HS- new Keep low Tx bedside- new FFollow-up: RDN [facility] follow-up in 2-3 weeks Manuela Ochoa RDN, [facility] Certified Diabetes Care and Chicken Dresser P: [phone] Thank you for this referral
== END ==
LOC: DIET 15:02
PROVIDERS: PCP Family Medicine; Referring Provider Family Medicine
DX: E10.9 Type 1 diabetes mellitus without complications (principal); Z71.3 Dietary counseling and surveillance
CPT/HCPCS: G0108

== ENCOUNTER → 2024-09-05 09:58 | Outpatient (CLI) | payer OTHER, SELFPAY ==
[2024-04-18 19:05] VITALS: BMI 19.3
--- NOTE | 2024-09-08 08:58 | DIAB.MNTFU ---
Follow-up Diabetes Medical Nutrition Therapy Assessment Name: Jaylene Melvin Date: 09/05/24 Time: 10-1030a Dx: Type I Diabetes Jaylene presents for DM follow-up, Increasing greens in diet and following glucose godess. Over the last 3-4 days reports having more veggies and using corn tortillas as her CHO. Started 70/30 insulin pen version. Endorses $167 per 5 pens. FBG seem to have improved with 70/30. Has PCP f/u in October or November per report. Diet recall: 9am: greens, 2 corn tortillas with 4TBS beans, tomatoes, avocado, 1 sprouted toast 3p: 1 corn tortilla with veggies and beans 5p: 2 mandarin oranges water coffee with milk occasional ETOH vitamin c pkt with water sf endorses more energy, possibly r/t improved BG Anthropometrics: Ht: 63 Wt: 107# reported 09/2024 104# reported 07/2024 Physical Activity: Walking 4 days per week at park with stairs per report. Self-Monitoring Blood Glucose: Checking FB, 318, 95, 278, 148, 141 pre dinner: 176 ---- improved FBG with more FBG <150mg/dl than previous visits. Denies forgetting doses, which RD thought might be the culprit for some of the morning elevations. Diabetes Medications: Lantus 20u-- d/c 70/30 20u AM and 10u PM Pertinent Labs: HgA1c 10.8% 04/2023 10.3% 06/2023 11.2% 04/19/24 Past Medical History: (Last Reviewed 04/18/24 @ 18:28 by Baudilio Bishop MD) Alcohol abuse Diabetes DKA April 2023, again April 2024Hypertension Nutrition Rx: 30g CHO at meals; 15-30g at snacks Nutrition Diagnosis: - Altered nutrition related lab value r/t endocrine dysfunction aeb hgA1c - Predicted inadequate protein intake r/t recent diet changes aeb diet recall Intervention: This participant was very receptive. Provided appropriate educational handouts. Discussed the following topics: Blood sugar review and trends. BG goals and impact on energy HgA1c measurement Sharps disposal Diet changes and impact on BG PHysical activity Created SMART goals for patient self-care and success. Goals: Check BG at BID: FBG and HS- improved Keep low Tx bedside- met Use sharp disposal, as discussed- new Continue 70/30 insulin- new Follow-up: [facility] follow-up in 4 weeks. Next visit review protein sources. Manuela Ochoa RDN, [facility] Certified Diabetes Care and School Based Therapist P: [phone] Thank you for this referral
== END ==
LOC: DIET 09:58
PROVIDERS: PCP Family Medicine; Referring Provider Family Medicine
DX: E10.9 Type 1 diabetes mellitus without complications (principal); Z71.3 Dietary counseling and surveillance
CPT/HCPCS: 97803

== ENCOUNTER → 2024-10-04 09:52 | Outpatient (CLI) | payer OTHER, SELFPAY ==
[2024-04-18 19:05] VITALS: BMI 19.3
--- NOTE | 2024-10-04 09:57 | DIAB.MNTFU ---
Follow-up Diabetes Medical Nutrition Therapy Assessment Name: Jaylene Melvin Date: 10/04/24 Time: 1d Dx: Type I Diabetes Jaylene presents for DM follow-up. Reports improved BG recently. States she feels much more comfortable managing her Dm now. Reports reduced greens since last visit. Sometimes skips mid day meal/snack. Endorses a low in the night, but treated with glucose tabs she keeps close to her bed. Has requested as little intervention as possible with declining CGM or more than 2 injections per day or pump therapy. Recent dental visit. UTD on eye appt, though may be due soon. Has PCP f/u in October or November per report. Diet recall: 9am: plain yogurt 1p: nothing or chx/veggie/lentil soup 4p: salad with smoked salmon water coffee with milk occasional ETOH vitamin c pkt with water sf Still endorses more energy, possibly r/t improved BG Anthropometrics: Ht: 63 Wt: 108# 10/2024 --- reports a h/o 118#, though does not think she needs to increase back to this per report 107# reported 09/2024 104# reported 07/2024 Physical Activity: Walking 4 days per week at park with stairs per report. Self-Monitoring Blood Glucose: Checking FBG: (newest) 180, 104, 373, 180, 387, 268, 243, 141 (oldest). A few random BG checks ranging from 61-330mg/dl. Treated the low with glucose tabs. Overall BG are doing better, though some concern for variation in FBG. She has questions about injection technique and when to take insulin pre meal. Diabetes Medications: 70/30 20u AM and 10u PM Pertinent Labs: HgA1c 10.8% 04/2023 10.3% 06/2023 11.2% 04/19/24 Past Medical History: (Last Reviewed 04/18/24 @ 18:28 by Baudilio Bishop MD)Alcohol abuse Diabetes DKA April 2023, again April 2024Hypertension Nutrition Rx: 30g CHO at meals; 15-30g at snacks Nutrition Diagnosis: - Altered nutrition related lab value r/t endocrine dysfunction aeb hgA1c - Predicted inadequate protein intake r/t recent diet changes aeb diet recall Intervention: This participant was very receptive. Provided appropriate educational handouts. Discussed the following topics: Blood sugar review and trends. BG goals and impact on energy Physical activity Protein food sources she likes Encouraged eating TID minimum Reducing complications: eye and dental Injection technique for insulin and timing Treatment goals Created SMART goals for patient self-care and success. Goals: Use sharp disposal, as discussed- continue Continue 70/30 insulin- met Restart greens intake- new Press pen injection until reads zero and wait a few seconds after- new Eat TID min- new Follow-up: [facility] follow-up prnNoé Jaylene states she feels comfortable managing her Dm and will call or message for questions or follow-up needs. She is hopeful for an improved HgA1c with recent reduced BG. Though still having elevations, given her preferences for limited interventions, she seems to be doing relatively well. Manuela Ochoa RDN, [facility] Certified Diabetes Care and Business Relationship Manager P: [phone] Thank you for this referral
== END ==
LOC: DIET 09:53
PROVIDERS: PCP Family Medicine; Referring Provider Family Medicine
DX: E10.9 Type 1 diabetes mellitus without complications (principal); Z71.3 Dietary counseling and surveillance; Z79.4 Long term (current) use of insulin
CPT/HCPCS: 97803

== ENCOUNTER → 2025-02-23 10:24 | Outpatient (CLI) | payer OTHER, SELFPAY ==
[2024-04-18 19:05] VITALS: BMI 19.3
[2025-02-23 11:43] LABS: Blood Urea Nitrogen 15 mg/dL (7-17); Calcium 9.4 mg/dL (8.4-10.2); Carbon Dioxide 32 mmol/L (22-32); Chloride 97 mmol/L (98-107); Cholesterol 205 mg/dL (140-199); Estimated Glomerular Filt Rate > 60 mL/min (>60); Glucose 128 mg/dL (70-99); HDL Cholesterol 81 mg/dL (40-60); HEMOLYSIS < 15 (0-50); Potassium 4.0 mmol/L (3.4-5.1); Sodium 136 mmol/L (137-145); Triglycerides 84 mg/dL (35-150)
== END ==
PROVIDERS: PCP Family Medicine; Referring Provider Internal Medicine; Visit Provider Internal Medicine
DX: E78.5 Hyperlipidemia, unspecified (principal); I51.81 Takotsubo syndrome
CPT/HCPCS: 36415; 80048; 80061

== ENCOUNTER 2025-03-07 13:55 | Inpatient (IN) | payer OTHER, SELFPAY ==
[2024-04-18 19:05] VITALS: BMI 19.3
[2025-03-07] VITALS (9 sets, daily range): BP systolic 62–130; BP diastolic 30–94; PULSE 44–91; RESP 10–22; O2SAT 89–100; BMI 16.0
[2025-03-07] MEDS: SODIUM CHLORIDE 0.9% 1,000 ML 1000 ML IV ×2 (14:00→15:00)
--- NOTE | 2025-03-07 14:00 | PC.NURSE ---
Patient cold to touch, unable to obtain rectal temp, reading too low. Pulses faint, no response to painful stimuli.
--- NOTE | 2025-03-07 14:07 | EKG_ITS ---
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
[2025-03-07] MEDS: ATROPINE 1 MG/10 ML SYRINGE IV (14:23)
[2025-03-07] MEDS: EPINEPHrine 1 MG/ML IV (14:32)
[2025-03-07] MEDS: SODIUM BICARB 8.4% SYRINGE 50 MEQ IV (14:43)
[2025-03-07 14:48] LABS: Base Excess VBG -20.6 mmol/L (0-4); HCO3 VBG 13 mmol/L (24-28); Oxygen Saturation VBG 48 % (70-75); PCO2 VBG 70.9 mmHg (45-50); PO2 VBG 46 mmHg (35-45); Total CO2 VBG 13 mmol/L (24-29); pH VBG 6.85 (7.33-7.43)
[2025-03-07] MEDS: NOREPINEPHRINE BIT/0.9 % NACL 4 MG/250 ML PLAST..BAG 16.875 MG IV (15:11)
--- NOTE | 2025-03-07 15:13 | PC.NURSE ---
patient daughter wants to keep the patient alive until she gets here. Pt was given atropine and epi and was able to hold her pressure with IV fluids but then her pressure began to drop again. MD notified. Nor epi order via verbal order from MD friedman.
--- NOTE | 2025-03-07 15:47 | PC.NURSE ---
Pt localizing to stimuli while cleaning her hair and face. Her pupils reactive equal to light. Patient daughter on the way.
--- NOTE | 2025-03-07 16:25 | PC.NURSE ---
daughter showed up to see the patient. As per daughter's request, the nor epi was discontinued at 1615.
[2025-03-07] MEDS: MORPHINE 4 MG/ML INJ IV (17:04)
--- NOTE | 2025-03-07 17:20 | PM.HP.1 ---
History of Present Illness History of Present Illness Date Patient Seen: 03/07/25 Chief complaint: Found down Narrative: Chief complaint: Diabetic coma History of present illness: 79-year-old female found unresponsive on the floor brought in by EMS. Patient has a history of insulin dependent diabetes that she has not been compliant note wants to take her insulin he had multiple episodes of DKA upon arrival to family has requested comfort measures only The only diagnostic performed was a venous blood gas pH of 6.85 pCO2 71 PO2 46 bicarb 13 in fingerstick blood glucose greater than 500 Patient is not capable of performing a review of systems due to coma Physical exam Comatose agonal respirations Unresponsive Dusky pallor Assessment and plan: DKA with diabetic coma Comfort measures only Code status: Do not resuscitate Time based billin minutes were involved in evaluation of the patient review of records review of plan of care with family treatment team and ER provider [facility] Medical History Diabetes Alcohol abuse Hypertension Social History household members: none alcohol intake: current Meds Home Medications and Allergies Home Medications ?Medication ?Instructions ?Recorded ?Confirmed ?Type multivitamin 1 tab PO DAILY 04/18/23 04/18/24 History insulin glargine 100 unit/mL (3 20 unit SUBCUT DAILY 04/18/24 04/18/24 History mL) subcutaneous pen (Lantus Solostar U-100 Insulin) folic acid 1 mg tablet 1 mg PO DAILY #30 tabs 04/21/24 Rx pantoprazole 40 mg tablet,delayed 40 mg PO DAILY #30 tabs 04/21/24 Rx release (Protonix) potassium chloride 20 mEq 20 meq PO BID #60 tabs 04/21/24 Rx tablet,extended release(part/cryst) (Klor-Con M) thiamine HCl (vitamin B1) 100 mg 100 mg PO DAILY #30 caps 04/21/24 Rx capsule Allergies Allergy/AdvReac Type Severity Reaction Status Date / Time No Known Drug Allergies Allergy Verified 11/06/24 12:31 Exam Vital Signs (past 8 hours): - 03/07/25 14:06 03/07/25 14:13 03/07/25 14:13 Pulse Rate 46 L 46 L Respiratory Rate 10 L 12 Blood Pressure 74/38 L 71/35 L Pulse Oximetry 90 L 98 Oxygen Delivery Method Non -Rebreather Room Air Oxygen Flow Rate 15 03/07/25 14:13 03/07/25 14:16 03/07/25 14:16 Pulse Rate 47 L 45 L Respiratory Rate 10 L 11 L Blood Pressure 66/31 L Pulse Oximetry 89 L 98 Oxygen Delivery Method Non -Rebreather Non -Rebreather Oxygen Flow Rate 15 15 03/07/25 14:21 03/07/25 14:21 03/07/25 14:30 Pulse Rate 44 L 65 Respiratory Rate 12 11 L Blood Pressure 62/30 L Pulse Oximetry 96 Oxygen Delivery Method Oxygen Flow Rate 03/07/25 14:35 03/07/25 14:35 03/07/25 14:40 Pulse Rate 72 Respiratory Rate 13 Blood Pressure 130/89 130/94 H Pulse Oximetry 100 Oxygen Delivery Method Oxygen Flow Rate 03/07/25 14:40 03/07/25 15:24 Pulse Rate 91 H 71 Respiratory Rate 12 12 Blood Pressure 109/52 L Pulse Oximetry 100 100 Oxygen Delivery Method Nasal Cannula Oxygen Flow Rate 2 Oxygen Delivery Method Nasal Cannula Oxygen Flow Rate 2 Objective Labs Labs: Laboratory Results - last 24 hr 03/07/25 03/07/25 14:30 14:40 VBG pH 6.85 L* VBG pCO2 70.9 H VBG pO2 46 H VBG HCO3 13 L VBG Total CO2 13 L VBG O2 Saturation 48 L VBG Base Excess -20.6 L FiO2 % 80.0 % POC Whole Bld Glucose > 500 H* Assessment & Plan Time-Based Coding :: [TOTAL MINUTES] spent with patient and on the chart (including review of chart, obtaining history, exam, reviewing outside data, placing orders, documenting exam and treatment plan, and counseling patient) on [DATE].
--- NOTE | 2025-03-07 18:34 | PC.NURSE ---
Addendum entered by Lawanda Spear, RN 03/07/25 18:58: Pt presents w/mottling from feet to just below knee Original Note: Pt arrived from ED @ 1640 Unresponsive; unable to do admit assessment and work list items. 2 SL intact/patent Med x 1 w/ MS w/ relief. IV Dilaudid gtt started at 1800 Pt resting at this time w/family in room. Continue comfort care measures.
--- NOTE | 2025-03-10 10:06 | P.DN_ITS ---
Discharge Summary History of Illness Narrative: Chief complaint: Diabetic coma History of present illness: 79-year-old female found unresponsive on the floor brought in by EMS. Patient has a history of insulin dependent diabetes that she has not been compliant note wants to take her insulin he had multiple episodes of DKA upon arrival to family has requested comfort measures only The only diagnostic performed was a venous blood gas pH of 6.85 pCO2 71 PO2 46 bicarb 13 in fingerstick blood glucose greater than 500 Patient is not capable of performing a review of systems due to coma Physical exam Comatose agonal respirations Unresponsive Dusky pallor Assessment and plan: DKA with diabetic coma * Comfort measures only Hospital course: Patient never regained consciousness responded to comfort measures and 03/07 at 2314 Cause of : Diabetic ketoacidosis Hospital Course Date of Admission: 03/07/25 15:26 Primary care provider: Mellissa Marsh MD Consults: 03/07/25 16:26 Consult to Discharge Planning Routine Comment:
--- NOTE | 2025-03-18 22:05 | ED.GENADULT ---
HPI - General Adult General Chief complaint: Unresponsive Stated complaint: Found down Time Seen by Provider: 03/07/25 14:08 Source: EMS Mode of arrival: EMS History of Present Illness HPI narrative: 79 F found unresponsive on the floor brought in by EMS. Hx provided by friend and daughter over the phone. Patient has a history of insulin dependent diabetes. Per daughter she has not been compliant with her medications, and had had a conversation requesting natural and comfort measures only. Patient is not capable of performing a review of systems due to Depressed mental status. Related Data Home Medications ?Medication ?Instructions ?Recorded ?Confirmed multivitamin 1 tab PO DAILY 04/18/23 04/18/24 insulin glargine 100 unit/mL (3 20 unit SUBCUT DAILY 04/18/24 04/18/24 mL) subcutaneous pen (Lantus Solostar U-100 Insulin) Previous Rx's ?Medication ?Instructions ?Recorded folic acid 1 mg tablet 1 mg PO DAILY #30 tabs 04/21/24 pantoprazole 40 mg tablet,delayed 40 mg PO DAILY #30 tabs 04/21/24 release (Protonix) potassium chloride 20 mEq 20 meq PO BID #60 tabs 04/21/24 tablet,extended release(part/cryst) (Klor-Con M) thiamine HCl (vitamin B1) 100 mg 100 mg PO DAILY #30 caps 04/21/24 capsule Allergies Allergy/AdvReac Type Severity Reaction Status Date / Time No Known Drug Allergies Allergy Verified 11/06/24 12:31 Review of Systems Review of Systems ROS Unobtainable: Unobtainable due to medical condition Patient History Medical History Diabetes Alcohol abuse Hypertension Social History household members: none alcohol intake: current tobacco type: cigarettes alcohol intake frequency: 0-2 drinks per day Alcohol type: wine Exam Narrative Exam Narrative: Patient GCS 3, dusky pallor, agonal respirations. Unresponsive to painful stimuli. Initial Vital Signs Initial Vital Signs: Vital Signs Pulse Rate 46 L 03/07/25 14:06 Respiratory Rate 10 L 03/07/25 14:06 Pulse Oximetry 90 L 03/07/25 14:06 Oxygen Delivery Method Non -Rebreather 03/07/25 14:06 Oxygen Flow Rate 15 03/07/25 14:06 Course Orders Ordered: Discontinued Medications Atropine Sulfate (Atropine 1 Mg/10 Ml Syringe) 1 mg IV NOW ONE Stop: 03/07/25 14:20 Last Admin: 03/07/25 14:23 Dose: 1 mg Documented By: SHADY Atropine Sulfate (Atropine 1% Ophth) 2 drops PO Q2HR PRN PRN Reason: Secretions Epinephrine HCl (Epinephrine 1 Mg/Ml) 1 mg IV NOW ONE Stop: 03/07/25 14:20 Last Admin: 03/07/25 14:32 Dose: 1 mg Documented By: SHADY Sodium Chloride (Normal Saline 0.9%) 1,000 mls @ 1,000 mls/hr IV BOLUS ONE Stop: 03/07/25 15:49 Last Infusion: 03/07/25 14:52 Dose: Infused Documented By: Admin: 03/07/25 14:00 Dose: 1,000 mls/hr Documented By: SHADY Sodium Chloride (Normal Saline 0.9%) 1,000 mls @ 1,000 mls/hr IV BOLUS ONE Stop: 03/07/25 15:52 Last Infusion: 03/07/25 16:30 Dose: Infused Documented By: Admin: 03/07/25 15:00 Dose: 1,000 mls/hr Documented By: SHADY NOREPINEPHRINE BIT/0.9 % NACL (Norepinephr 4 Mg/250-0.9% Nacl) 4 mg in 250 mls @ 16.875 mls/hr IV TITRATE TERRANCE; Protocol Last Titration: 03/07/25 16:23 Dose: Infused Documented By: Admin: 03/07/25 15:11 Dose: 0.1 mcg/kg/min, 16.875 mls/hr Documented By: SHADY Hydromorphone HCl 10 mg/ (Sodium Chloride) 101 mls @ 5.05 mls/hr IV TITRATE TERRANCE; Protocol Last Titration: 03/07/25 23:14 Dose: 0 mg/hr, 0 mls/hr Documented By: Admin: 03/07/25 18:02 Dose: 0.5 mg/hr, 5.05 mls/hr Documented By: JOCELYNE Lorazepam (Lorazepam 2 Mg/Ml Inj) 1 mg IV Q1HR PRN PRN Reason: Vomiting Morphine Sulfate (Morphine 4 Mg/Ml Inj) 4 mg IV Q30MIN PRN PRN Reason: pain >2, RR>20, inc. resp. effort/dyspnea/distress Last Admin: 03/07/25 17:04 Dose: 4 mg Documented By: JOCELYNE Naloxone HCl (Naloxone 0.4 Mg/Ml Vial) 0.2 mg IV Q2MIN PRN PRN Reason: Opiate Reversal Naloxone HCl (Naloxone 0.4 Mg/Ml Vial) 0.2 mg IV Q2MIN PRN PRN Reason: Opiate Reversal Sodium Bicarbonate (Sodium Bicarb 8.4% Syringe) 50 meq IV NOW ONE Stop: 03/07/25 14:39 Last Admin: 03/07/25 14:43 Dose: 50 meq Documented By: SHADY Medical Decision Making Lab Data Labs: Lab Results 03/07/25 03/07/25 Range/Units 14:30 14:40 VBG pH 6.85 L* (7.33-7.43) VBG pCO2 70.9 H (45-50) mmHg VBG pO2 46 H (35-45) mmHg VBG HCO3 13 L (24-28) mmol/L VBG Total CO2 13 L (24-29) mmol/L VBG O2 Saturation 48 L (70-75) % VBG Base Excess -20.6 L (0-4) mmol/L FiO2 % 80.0 % % POC Whole Bld Glucose > 500 H* (70-99) mg/dL MDM Narrative Medical decision making narrative: Patient initially came in critically ill, with agonal respirations, and unreadably high fingerstick, however after confirmation from daughter who is hospice nurse she stated that she wanted only comfort care measures to be given including IV fluids until the patient's daughter could arrive at the bedside. Critical Care Time Critical Care Time Attestation: Critical Care Time: 35 minutes excluding time spent performing procedures, treating other patients and teaching time. Critical Condition/Vital Organ System Affected: Brain Critical Intervention: Exam, evaluation, and discussion with patient's daughter about CODE STATUS. Discharge Plan Departure Patient Disposition: Admitted as Observation Clinical Impression: Unresponsive Admit Date/Time: 03/07/25 15:26 Admit Provider: Scotty Hendrix
== END 2025-03-07 23:14 | disposition expired | DRG 639 ==
LOC: ED 14:39 → AC 15:27
PROVIDERS: Admitting Provider Internal Medicine; Emergency Provider Emergency Medicine; PCP Family Medicine; Referring Provider Emergency Medicine; Visit Provider Internal Medicine
DX: E11.11 Type 2 diabetes mellitus with ketoacidosis with coma (principal); T38.3X6A Underdosing of insulin and oral hypoglycemic [antidiabetic] drugs, initial encounter; Z91.148 Patient's other noncompliance with medication regimen for other reason; Z66 Do not resuscitate; Z51.5 Encounter for palliative care; Z79.4 Long term (current) use of insulin
CPT/HCPCS: 82805; 82962; 93005; 96365; 96375; 99284; 99291; J0165; J0461; J1171; J2272; J7030; J7050